=== PATIENT | male | born 1945 | race Caucasian/White ===

== ENCOUNTER 2016-10-08 15:48 | Inpatient (IN) | payer MEDICARE, OTHER ==
[~2016-10-08] VITALS: Ht 165.1 cm; Wt 114.4 kg
--- NOTE | 2016-10-08 16:17 | EKG ---
[address] [address] Test Date: 2016-10-08 Test Time: 16:14:52 Pat Name: NAYELI PERAZA Department: Room: Gender: M Director Engineering: : 1945 Requested By: CHAMP MOSQUEDA Order Number: [id number] Reading MD: Richardson Dasilva Measurements Intervals [place] Rate: 72 P: -38 PA: 196 QRS: -37 QRSD: 114 T: 65 QT: 414 QTc: 455 Interpretive Statements SINUS RHYTHM LAFB Electronically Signed On 10-12-2016 14:17:53 CDT by Richardson Dasilva
--- NOTE | 2016-10-08 16:48 | ED.ADGEN ---
Adult General Chief Complaint Chief Complaint Encounter for medical clearance for psychiatric admission HPI HPI Patient is a 70-year-old [facility] patient who presents with verbally aggressive behavior towards staff members and fellow residents. Patient said to the ED for medical clearance for psychiatric admission. Patient denies any acute medical complaints at this time and is generally calm and cooperative with ED staff. Review of Systems Review of Systems Constitutional: Denies fever or chills [] Eyes: Denies change in visual acuity, redness, or eye pain [] HENT: Denies nasal congestion or sore throat [] Respiratory: Denies cough or shortness of breath [] Cardiovascular: No additional information not addressed in HPI [] GI: Denies abdominal pain, nausea, vomiting, bloody stools or diarrhea [] : Denies dysuria or hematuria [] Musculoskeletal: Denies back pain or joint pain [] Integument: Denies rash or skin lesions [] Neurologic: Denies headache, focal weakness or sensory changes [] Endocrine: Denies polyuria or polydipsia [] Physical Exam Physical Exam Constitutional: Well developed, well nourished, no acute distress, non-toxic appearance. HENT: Normocephalic, atraumatic, bilateral external ears normal, oropharynx moist, no oral exudates, nose normal. Eyes: PERRLA, EOMI, conjunctiva normal. Neck: Normal range of motion, no tenderness. Cardiovascular:Heart rate regular rhythm. 2+ bipedal edema. Lungs & Thorax: Bilateral breath sounds clear to auscultation. Abdomen: Bowel sounds normal, soft, no tenderness, no masses, no pulsatile masses. Skin: Warm, dry. Back: No tenderness. Extremities: No tenderness. Neurologic: Alert and oriented, normal motor function, normal sensory function, no focal deficits noted. Psychologic: Affect normal,suspicious behavior. EKG EKG [EKG: Normal sinus rhythm, rate 72, no acute ST-T wave changes, QTC 455.] Radiology/Procedures Radiology/Procedures [] Course & Med Decision Making Course & Med Decision Making Pertinent Labs and Imaging studies reviewed. (See chart for details) [Encounter for medical clearance for psychiatric admission] Final Impression Final Impression [1. encounter for medical clearance for psychiatric admission] Problems: Dragon Disclaimer Dragon Disclaimer This electronic medical record was generated, in whole or in part, using a voice recognition dictation system. CHAMP MOSQUEDA DO October 08, 2016 16:48
[2016-10-08 17:11] LABS: BASO # 0.1 x10^3/uL (0.0-0.2); BASO % 1 % (0-3); EOS # 0.2 x10^3/uL (0.0-0.7); EOS % 4 % (0-3); HEMATOCRIT 40.8 % (39.0-53.0); HEMOGLOBIN 13.7 g/dL (13.0-17.5); LYMPH # 1.6 x10^3/uL (1.0-4.8); LYMPH % 28 % (24-48); MEAN CORPUSCULAR HEMOGLOBIN 30 pg (25-35); MEAN CORPUSCULAR HGB CONC 33 g/dL (31-37); MEAN CORPUSCULAR VOLUME 88 fL (79-100); MONO # 0.6 x10^3/uL (0.0-1.1); MONO % 11 % (0-9); NEUT # 3.2 x10^3uL (1.8-7.7); NEUT % 55 % (31-73); PLATELET COUNT 251 x10^3/uL (140-400); RED BLOOD COUNT 4.62 x10^6/uL (4.30-5.70); RED CELL DISTRIBUTION WIDTH 14.8 % (11.5-14.5); WHITE BLOOD COUNT 5.8 x10^3/uL (4.0-11.0)
[2016-10-08 17:22] LABS: ALBUMIN 3.4 g/dL (3.4-5.0); ALBUMIN/GLOBULIN RATIO 0.9 (1.0-1.7); CALCIUM 8.7 mg/dL (8.5-10.1); CREATININE 1.4 mg/dL (0.7-1.3); GFR 50.2; POTASSIUM 3.7 mmol/L (3.5-5.1); TOTAL BILIRUBIN 0.3 mg/dL (0.2-1.0); TOTAL PROTEIN 7.3 g/dL (6.4-8.2); VAL ACID 59 mcg/mL (50-100)
[2016-10-08 17:45] LABS: BILIRUBIN,URINE NEG (NEG); CLARITY,URINE CLEAR; COLOR,URINE YELLOW; GLUCOSE,URINE NEG (NEG); NITRITE,URINE NEG (NEG); UROBILINOGEN,URINE 0.2 mg/dL (0.2 mg/dL)
[2016-10-08 17:46] LABS: BACTERIA,URINE 0 /HPF (0-FEW); SQUAMOUS EPITHELIAL CELL,UR OCC /LPF
--- NOTE | 2016-10-08 18:50 | NUR ---
Patient arrived to unit accompanied by EMS, nurse from ER. He was transferred to bed in room 104 without complications. Patient verbal, cooperative with staff and pleasant while speaking with nurse. VS: 120/[id number]% RA-98.2, c/o left knee pain about 2/10. Patient states he had a cholecystectomy august 2016, CABG with valve replacement a few years back, and orthoscopic surgery on bilat knees. He ambulates with walker, regular diet, A&O X3- does not know why he is here. Patient oriented to unit and is currently in day room eating dinner, no signs of distress at this time.
[2016-10-08 19:21] VITALS: BP 120/60
[2016-10-08] MEDS ORDERED: SODI30SP NS (19:36)
[2016-10-08] MEDS ORDERED: LORA0.5T PO (19:36)
[2016-10-08] MEDS ORDERED: FINA5TAB4 PO (19:36)
[2016-10-08] MEDS ORDERED: DICL100G18 TP (19:36)
[2016-10-08] MEDS ORDERED: DONE5TAB56 PO (19:36)
[2016-10-08] MEDS ORDERED: FENO160T PO (19:36)
[2016-10-08] MEDS ORDERED: FLUT16SP21 NS (19:36)
[2016-10-08] MEDS ORDERED: TAMS0.4C2 PO (19:36)
[2016-10-08] MEDS ORDERED: CITA40TA12 PO (19:36)
[2016-10-08] MEDS ORDERED: FURO-69 PO (19:36)
[2016-10-08] MEDS ORDERED: CARV12.52 PO (19:36)
[2016-10-08] MEDS ORDERED: MELA3TAB2 PO (19:36)
[2016-10-08] MEDS ORDERED: DOCU-109 PO (19:36)
[2016-10-08] MEDS ORDERED: ASPI325T8 PO (19:36)
[2016-10-08] MEDS ORDERED: ATOR10TA60 PO (19:36)
[2016-10-08] MEDS ORDERED: ALLO100T PO (19:36)
[2016-10-08] MEDS ORDERED: DIVA500T2 PO (19:36)
[2016-10-08] MEDS ORDERED: MENT1LOZ3 MM (19:36)
[2016-10-08] MEDS ORDERED: ACET325T9 PO (19:36)
[2016-10-08] MEDS ORDERED: FAMO20TA5 PO (19:36)
[2016-10-08] MEDS ORDERED: GUAI-171 PO (19:36)
[2016-10-08] MEDS ORDERED: LISI40TA PO (19:36)
[2016-10-08] MEDS ORDERED: CLON1TAB3 PO (19:36)
[2016-10-08] MEDS ORDERED: POLY119P4 PO (19:36)
[2016-10-08] MEDS ORDERED: HYDR30CR61 RC (19:36)
[2016-10-08] MEDS ORDERED: LORazepam 0.5 MG TABLET PO PRN (19:45)
[2016-10-08] MEDS ORDERED: SODIUM CHLORIDE 0.65% NASAL SPRAY 45ML BOTTLE. NS PRN (20:00)
[2016-10-08] MEDS ORDERED: HYDROCORTISONE 2.5% RECTAL CREAM 30GM TUBE. RC PRN (20:00)
[2016-10-08] MEDS ORDERED: DICLOFENAC SODIUM 1% TOPICAL GEL 100GM TUBE. TP PRN (20:00)
[2016-10-08] MEDS: MELATONIN 3 MG TABLET PO SCH (20:34)
[2016-10-08] MEDS: ALLOPURINOL 100 MG TABLET. PO SCH (20:34)
[2016-10-08] MEDS: clonazePAM 1 MG TABLET PO SCH (20:34)
[2016-10-08] MEDS: DOCUSATE SODIUM 100 MG CAPSULE PO SCH (20:34)
[2016-10-08] MEDS: DONEPEZIL HCL 5 MG TABLET. PO SCH (20:34)
[2016-10-08] MEDS: DIVALPROEX SODIUM 250 MG TABLET.DR. PO SCH (20:34)
[2016-10-08] MEDS: ATORVASTATIN CALCIUM 10 MG TABLET. PO SCH (20:34)
[2016-10-08] MEDS ORDERED: BENZOCAINE/MENTHOL LOZENGE 16'S BOX. PO PRN (20:45)
--- NOTE | 2016-10-08 20:57 | PDOC ---
Exam Stanford Demential Exam: Stanford Note: Please also refer to the separate dictated note~for this date of service dictated separately.~Patient seen individually. Discussed the patient with Nursing staff reviewed the chart.~Reviewed interim history and current functioning. Reviewed vital signs,~Labs/ Radiology~and current medications noted below. Continue current treatment with the changes noted in the dictated addendum note Assessment: Vital Signs: Vital Signs Date Time Temp Pulse Resp B/P (MAP) Pulse Ox O2 Delivery O2 Flow Rate FiO2 10/08/16 19:21 98.2 60 20 120/60 (80) 92 Room Air Labs: Laboratory Tests Test 10/08/16 16:20 10/08/16 16:50 Urine Collection Type Unknown Urine Color Yellow Urine Clarity Clear Urine pH 6.0 Urine Specific [place] 1.015 Urine Protein Neg (NEG-TRACE) Urine Glucose (UA) Neg mg/dL (NEG) Urine Ketones (Stick) Neg mg/dL (NEG) Urine Blood Neg (NEG) Urine Nitrite Neg (NEG) Urine Bilirubin Neg (NEG) Urine Urobilinogen Dipstick 0.2 mg/dL (0.2 mg/dL) Urine Leukocyte Esterase Neg (NEG) Urine RBC 1-2 /HPF (0-2) Urine WBC 1-4 /HPF (0-4) Urine Squamous Epithelial Cells Occ /LPF Urine Bacteria 0 /HPF (0-FEW) White Blood Count 5.8 x10^3/uL (4.0-11.0) Red Blood Count 4.62 x10^6/uL (4.30-5.70) Hemoglobin 13.7 g/dL (13.0-17.5) Hematocrit 40.8 % (39.0-53.0) Mean Corpuscular Volume 88 fL (79-100) Mean Corpuscular Hemoglobin 30 pg (25-35) Mean Corpuscular Hemoglobin Concent 33 g/dL (31-37) Red Cell Distribution Width 14.8 % (11.5-14.5) H Platelet Count 251 x10^3/uL (140-400) Neutrophils (%) (Auto) 55 % (31-73) Lymphocytes (%) (Auto) 28 % (24-48) Monocytes (%) (Auto) 11 % (0-9) H Eosinophils (%) (Auto) 4 % (0-3) H Basophils (%) (Auto) 1 % (0-3) Neutrophils # (Auto) 3.2 x10^3uL (1.8-7.7) Lymphocytes # (Auto) 1.6 x10^3/uL (1.0-4.8) Monocytes # (Auto) 0.6 x10^3/uL (0.0-1.1) Eosinophils # (Auto) 0.2 x10^3/uL (0.0-0.7) Basophils # (Auto) 0.1 x10^3/uL (0.0-0.2) Sodium Level 142 mmol/L (136-145) Potassium Level 3.7 mmol/L (3.5-5.1) Chloride Level 105 mmol/L (98-107) Carbon Dioxide Level 31 mmol/L (21-32) Anion Gap 6 (6-14) Blood Urea Nitrogen 24 mg/dL (8-26) Creatinine 1.4 mg/dL (0.7-1.3) H Estimated GFR (Cockcroft-Gault) 50.2 BUN/Creatinine Ratio 17 (6-20) Glucose Level 145 mg/dL (70-99) H Calcium Level 8.7 mg/dL (8.5-10.1) Magnesium Level 2.1 mg/dL (1.8-2.4) Total Bilirubin 0.3 mg/dL (0.2-1.0) Aspartate Amino Transferase (AST) 22 U/L (15-37) Alanine Aminotransferase (ALT) 18 U/L (16-63) Alkaline Phosphatase 70 U/L (46-116) Total Protein 7.3 g/dL (6.4-8.2) Albumin 3.4 g/dL (3.4-5.0) Albumin/Globulin Ratio 0.9 (1.0-1.7) L Valproic Acid Level 59 mcg/mL (50-100) Valproic Acid Last Dose Date 10/08/16 Valproic Acid Last Dose Time Unknown Current Medications: Meds: Current Medications Clonazepam (KlonoPIN) 1 mg BID PO Last administered on 10/08/16 20:34; Start 10/08/16 at 21:00 Donepezil HCl (Aricept) 5 mg QHS PO Last administered on 10/08/16 20:34; Start 10/08/16 at 21:00 Lorazepam (Ativan) 0.5 mg PRN Q6HRS PRN PO ANXIETY / AGITATION; Start 10/08/16 at 19:45 Citalopram Hydrobromide (CeleXA) 40 mg DAILY PO ; Start 10/09/16 at 09:00 Divalproex Sodium (Depakote) 500 mg BID PO Last administered on 10/08/16 20:34 ; Start 10/08/16 at 21:00 Melatonin 3 mg QHS PO Last administered on 10/08/16 20:34; Start 10/08/16 at 21:00 Acetaminophen (Tylenol) 650 mg PRN Q6HRS PRN PO PAIN / TEMP; Start 10/08/16 at 20:00 Allopurinol (Zyloprim) 100 mg BID PO Last administered on 10/08/16 20:34; Start 10/08/16 at 21:00 Aspirin (Roberta Aspirin) 325 mg DAILY PO ; Start 10/09/16 at 09:00 Atorvastatin Calcium (Lipitor) 10 mg QHS PO Last administered on 10/08/16 20: 34; Start 10/08/16 at 21:00 Carvedilol (Coreg) 12.5 mg BIDWMEALS PO ; Start 10/09/16 at 08:00 Diclofenac Sodium (Voltaren) 1 diana PRN Q8HRS PRN TP PAIN; Start 10/08/16 at 20: 00 Docusate Sodium (Colace) 100 mg BID PO Last administered on 10/08/16 20:34; Start 10/08/16 at 21:00 Famotidine (Pepcid) 20 mg BIDBFRMEAL PO ; Start 10/09/16 at 07:30 Finasteride (Proscar) 5 mg DAILY PO ; Start 10/09/16 at 09:00 Fluticasone Propionate (Flonase) 2 spray DAILY NS ; Start 10/09/16 at 09:00 Furosemide (Lasix) 30 mg DAILY PO ; Start 10/09/16 at 09:00 Hydrocortisone (Proctosol-Hc) 1 diana PRN BID PRN RC Hemorrhoids; Start 10/08/16 at 20:00 Polyethylene Glycol (miraLAX) 17 gm PRN DAILY PRN PO CONSTIPATION; Start at 09:00 Sodium Chloride (Saline Mist Nasal) 2 diana PRN BID PRN NS NASAL CONGESTION; Start 10/08/16 at 20:00 Tamsulosin HCl (Flomax) 0.4 mg DAILY PO ; Start 10/09/16 at 09:00 Fenofibrate (Tricor) 145 mg DAILY PO ; Start 10/09/16 at 09:00 Guaifenesin (MUCINEX ER with DM) 1 tab PRN Q4HRS PRN PO COUGH; Start 10/08/16 at 21:00 Lisinopril (Prinivil) 40 mg DAILY PO ; Start 10/09/16 at 09:00 Throat Lozenges (Cepacol Sore Throat Lozenge) 1 christianne PRN Q2HR PRN PO COUGH; Start 10/08/16 at 20:45 Active Scripts Active Reported Voltaren (Diclofenac Sodium) 100 Gm Gel..gram. 1 Diana TP PRN Q8HRS PRN Tylenol (Acetaminophen) 325 Mg Tablet 650 Mg PO PRN Q6HRS PRN Tamsulosin Hcl 0.4 Mg Cap.er.24h 0.4 Mg PO DAILY Saline Nasal [place] (Sodium Chloride) 30 Ml [place] 2 Sprays NS PRN BID PRN Miralax (Polyethylene Glycol 3350) 119 Gm Powder 17 Gm PO PRN DAILY PRN Melatonin 3 Mg Tablet 3 Mg PO QHS Lorazepam 0.5 Mg Tablet 0.5 Mg PO PRN Q6HRS PRN Lisinopril 40 Mg Tablet 40 Mg PO DAILY Lasix (Furosemide) 20 Mg Tablet 30 Mg PO DAILY Guaifenesin Dm 400-20 Mg Tab (Guaifenesin/Dextromethorphan) 1 Each Tablet 1 Tab PO PRN Q4HRS PRN Fluticasone Propionate Nasal [place] (Fluticasone Propionate) 16 Gm [place].susp 2 [place] NS DAILY Finasteride 5 Mg Tablet 5 Mg PO DAILY Fenofibrate 160 Mg Tablet 160 Mg PO DAILY Famotidine 20 Mg Tablet 20 Mg PO BIDBFRMEAL Depakote (Divalproex Sodium) 500 Mg Tablet.dr 500 Mg PO BID Cough Drops (Menthol/Herbal Drugs) 1 Each Lozenge 1 Christianne MM PRN Q2HR PRN Colace (Docusate Sodium) 100 Mg Capsule 100 Mg PO BID Clonazepam 1 Mg Tablet 1 Mg PO BID Celexa (Citalopram Hydrobromide) 40 Mg Tablet 40 Mg PO DAILY Carvedilol 12.5 Mg Tablet 12.5 Mg PO BIDWMEALS Atorvastatin Calcium 10 Mg Tablet 10 Mg PO QHS Aspirin 325 Mg Tablet 325 Mg PO DAILY Aricept (Donepezil Hcl) 5 Mg Tablet 5 Mg PO QHS Anusol-Hc (Hydrocortisone) 30 Gm Cream..g. 1 Diana RC PRN BID PRN Allopurinol 100 Mg Tablet 100 Mg PO BID ELKIN MALDONADO MD October 08, 2016 20:57
[2016-10-08] MEDS ORDERED: guaiFENesin DM 600/30MG 1 TAB TAB.ER.12H PO PRN (21:00)
--- NOTE | 2016-10-09 03:28 | NUR ---
Behavior Intervention Response and Plan: BIRP Note: Behavior: Assumed Care of patient, patient located in Day Room at shift change. Patient exhibited the following behavior Calm, Compliant, Cooperative. Brief assessment on rounds of vital signs, medication needs, lab studies, and pain. Treatment plan problems Alteration in Thought Process and Fall Risk. Intervention: Patient assessed and the following interventions initiated safety checks 15 Minute Checks Cognitive Assessment , Head to toe Assessment , Medications. Response: After interactions and interventions patient responded in the following manner, Calm , Compliant ,Cooperative. Continue to assess behaviors and condition will continue to monitor throughout the shift as needed. 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 Continue to assess patient for changes in above assessment. Monitor for medication needs, pain, and safety concerns. Hourly rounding performed to ensure safe environment.
[2016-10-09 05:35] VITALS: BP 156/78
[2016-10-09] MEDS: DIVALPROEX SODIUM 250 MG TABLET.DR. PO SCH ×2 (07:55→20:39)
[2016-10-09] MEDS: DOCUSATE SODIUM 100 MG CAPSULE PO SCH ×2 (07:55→20:39)
[2016-10-09] MEDS: ALLOPURINOL 100 MG TABLET. PO SCH ×2 (07:55→20:39)
[2016-10-09] MEDS: FLUTICASONE 50MCG/NASAL SPRAY 16GM BOTTLE. NS SCH (08:01)
[2016-10-09] MEDS: ASPIRIN 325 MG TABLET PO SCH (08:05)
[2016-10-09] MEDS: LISINOPRIL 20 MG TABLET PO SCH (08:05)
[2016-10-09] MEDS: FENOFIBRATE NANOCRYSTALLIZED 145 MG TABLET PO SCH (08:05)
[2016-10-09] MEDS: TAMSULOSIN 0.4 MG CAP.ER.24H. PO SCH (08:05)
[2016-10-09] MEDS: FINASTERIDE 5 MG TABLET PO SCH (08:05)
[2016-10-09] MEDS: CARVEDILOL 12.5 MG TABLET PO SCH ×2 (08:06→18:04)
[2016-10-09] MEDS: FUROSEMIDE 20 MG TABLET PO SCH (08:07)
[2016-10-09] MEDS: clonazePAM 1 MG TABLET PO SCH ×2 (08:07→20:39)
[2016-10-09] MEDS: FAMOTIDINE 20 MG TABLET PO SCH ×2 (08:08→18:04)
[2016-10-09] MEDS ORDERED: POLYETHYLENE GLYCOL 3350 17 GM PACKET. PO PRN (09:00)
[2016-10-09] MEDS ORDERED: CITALOPRAM 20 MG TABLET. PO SCH (09:00)
--- NOTE | 2016-10-09 09:09 | NUR ---
SW left a message for Pt's dtr/DPRENNY Landin to collect PSA and answer any questions.
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
--- NOTE | 2016-10-09 10:06 | NUR ---
Behavior Intervention Response and Plan: BIRP Note: Behavior: Assumed Care of patient, patient located in Dining Room at shift change. Patient exhibited the following behavior Compliant, Social, hyperverbal. Brief assessment on rounds of vital signs, medication needs, lab studies, and pain. Treatment plan problems . Intervention: Patient assessed and the following interventions initiated safety checks 15 Minute Checks Cognitive Assessment , Head to toe Assessment , Medications. Response: After interactions and interventions patient responded in the following manner, Compliant , Attention Seeking. Continue to assess behaviors and condition will continue to monitor throughout the shift as needed. 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 Continue to assess patient for changes in above assessment. Monitor for medication needs, pain, and safety concerns. Hourly rounding performed to ensure safe environment.
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
--- NOTE | 2016-10-09 14:15 | NUR ---
THERAPEUTIC RECREATION GROUP NOTE TITLE :Leisure Awareness: Flower Field of Fun ACTIVITY : Leisure Awareness GOAL : Increase knowledge of leisure activities DURATION : 45 Minutes RESPONSE : Full participation. Pt. waited his turn appropriately, he gave numerous examples of leisure activities and was able to quickly solve clues. He had a smile on his face most of the time.
--- NOTE | 2016-10-09 14:25 | NUR ---
Group Note [facility] Group Type Flower of gratefulness Start Time: 13:00 End Time: 14:10 Problem: Anxiety Purpose: Elevate Mood, Increase stimulation, stimulate thought process, promote socialization Level of Participation: High Behaviors or Symptoms Observed: Participates sat within a group setting and wrote on each petal of the flower something they were grateful for. Group discussed each persons flower petals as group. Then each person decorated their fowler. Interventions: Directed Focus Plan: group. Additional Comments: Pt stated he enjoyed the activity and enjoys engaging in groups. Pt put a lot of thought into the different colors he made the petals making the colors represents the words he put into the petals.
[2016-10-09 16:15] VITALS: BP 128/72
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
[2016-10-09 18:08] LABS: T3 TOTAL 103 ng/dL (71-180)
--- NOTE | 2016-10-09 18:24 | NUR ---
pt up with walker to meals and groups. in pleasant spirits. hyperverbal. states staff doesn't listen to him when he is sick. new orders noted.
[2016-10-09 19:13] LABS: THYROXINE 5.5 ug/dL (4.5-12.0)
[2016-10-09] MEDS: ATORVASTATIN CALCIUM 10 MG TABLET. PO SCH (20:39)
[2016-10-09] MEDS: DONEPEZIL HCL 5 MG TABLET. PO SCH (20:39)
[2016-10-09] MEDS: MELATONIN 3 MG TABLET PO SCH (20:39)
--- NOTE | 2016-10-09 21:01 | PDOC ---
Exam [facility] Demential Exam: [facility] Note: Please also refer to the separate dictated note~for this date of service dictated separately.~Patient seen individually. Discussed the patient with Nursing staff reviewed the chart.~Reviewed interim history and current functioning. Reviewed vital signs,~Labs/ Radiology~and current medications noted below. Continue current treatment with the changes noted in the dictated addendum note Assessment: Vital Signs: Vital Signs Date Time Temp Pulse Resp B/P (MAP) Pulse Ox O2 Delivery O2 Flow Rate FiO2 10/09/16 18:04 60 128/72 10/09/16 16:15 97.4 20 95 10/09/16 05:35 Room Air I&O Intake and Output 10/09/16 07:00 Intake Total 240 ml Balance 240 ml Intake Oral 240 ml Current Medications: Meds: Current Medications Clonazepam (KlonoPIN) 1 mg BID PO Last administered on 10/09/16 20:39; Start 10/08/16 at 21:00 Donepezil HCl (Aricept) 5 mg QHS PO Last administered on 10/09/16 20:39; Start 10/08/16 at 21:00 Lorazepam (Ativan) 0.5 mg PRN Q6HRS PRN PO ANXIETY / AGITATION; Start 10/08/16 at 19:45 Citalopram Hydrobromide (CeleXA) 40 mg DAILY PO Last administered on 10/09/16 08:05; Start 10/09/16 at 09:00; Stop 10/09/16 at 18:44; Status DC Divalproex Sodium (Depakote) 500 mg BID PO Last administered on 10/09/16 20:39 ; Start 10/08/16 at 21:00 Melatonin 3 mg QHS PO Last administered on 10/09/16 20:39; Start 10/08/16 at 21:00 Acetaminophen (Tylenol) 650 mg PRN Q6HRS PRN PO PAIN / TEMP; Start 10/08/16 at 20:00 Allopurinol (Zyloprim) 100 mg BID PO Last administered on 10/09/16 20:39; Start 10/08/16 at 21:00 Aspirin (Roberta Aspirin) 325 mg DAILY PO Last administered on 10/09/16 08:05; Start 10/09/16 at 09:00 Atorvastatin Calcium (Lipitor) 10 mg QHS PO Last administered on 10/09/16 20: 39; Start 10/08/16 at 21:00 Carvedilol (Coreg) 12.5 mg BIDWMEALS PO Last administered on 10/09/16 18:04; Start 10/09/16 at 08:00 Diclofenac Sodium (Voltaren) 1 diana PRN Q8HRS PRN TP PAIN; Start 10/08/16 at 20: 00 Docusate Sodium (Colace) 100 mg BID PO Last administered on 10/09/16 20:39; Start 10/08/16 at 21:00 Famotidine (Pepcid) 20 mg BIDBFRMEAL PO Last administered on 10/09/16 18:04; Start 10/09/16 at 07:30 Finasteride (Proscar) 5 mg DAILY PO Last administered on 10/09/16 08:05; Start 10/09/16 at 09:00 Fluticasone Propionate (Flonase) 2 spray DAILY NS Last administered on 08:01; Start 10/09/16 at 09:00 Furosemide (Lasix) 30 mg DAILY PO Last administered on 10/09/16 08:07; Start 10/09/16 at 09:00 Hydrocortisone (Proctosol-Hc) 1 diana PRN BID PRN RC Hemorrhoids; Start 10/08/16 at 20:00 Polyethylene Glycol (miraLAX) 17 gm PRN DAILY PRN PO CONSTIPATION; Start at 09:00 Sodium Chloride (Saline Mist Nasal) 2 diana PRN BID PRN NS NASAL CONGESTION; Start 10/08/16 at 20:00 Tamsulosin HCl (Flomax) 0.4 mg DAILY PO Last administered on 10/09/16 08:05; Start 10/09/16 at 09:00 Fenofibrate (Tricor) 145 mg DAILY PO Last administered on 10/09/16 08:05; Start 10/09/16 at 09:00 Guaifenesin (MUCINEX ER with DM) 1 tab PRN Q4HRS PRN PO COUGH; Start 10/08/16 at 21:00 Lisinopril (Prinivil) 40 mg DAILY PO Last administered on 10/09/16 08:05; Start 10/09/16 at 09:00 Throat Lozenges (Cepacol Sore Throat Lozenge) 1 christianne PRN Q2HR PRN PO COUGH; Start 10/08/16 at 20:45 Escitalopram Oxalate (Lexapro) 10 mg DAILY PO ; Start 10/10/16 at 09:00 Quetiapine Fumarate (SEROquel) 12.5 mg BID92 PO ; Start 10/10/16 at 09:00 Active Scripts Active Reported Voltaren (Diclofenac Sodium) 100 Gm Gel..gram. 1 Diana TP PRN Q8HRS PRN Tylenol (Acetaminophen) 325 Mg Tablet 650 Mg PO PRN Q6HRS PRN Tamsulosin Hcl 0.4 Mg Cap.er.24h 0.4 Mg PO DAILY Saline Nasal [place] (Sodium Chloride) 30 Ml [place] 2 Sprays NS PRN BID PRN Miralax (Polyethylene Glycol 3350) 119 Gm Powder 17 Gm PO PRN DAILY PRN Melatonin 3 Mg Tablet 3 Mg PO QHS Lorazepam 0.5 Mg Tablet 0.5 Mg PO PRN Q6HRS PRN Lisinopril 40 Mg Tablet 40 Mg PO DAILY Lasix (Furosemide) 20 Mg Tablet 30 Mg PO DAILY Guaifenesin Dm 400-20 Mg Tab (Guaifenesin/Dextromethorphan) 1 Each Tablet 1 Tab PO PRN Q4HRS PRN Fluticasone Propionate Nasal [place] (Fluticasone Propionate) 16 Gm [place].susp 2 [place] NS DAILY Finasteride 5 Mg Tablet 5 Mg PO DAILY Fenofibrate 160 Mg Tablet 160 Mg PO DAILY Famotidine 20 Mg Tablet 20 Mg PO BIDBFRMEAL Depakote (Divalproex Sodium) 500 Mg Tablet.dr 500 Mg PO BID Cough Drops (Menthol/Herbal Drugs) 1 Each Lozenge 1 Christianne MM PRN Q2HR PRN Colace (Docusate Sodium) 100 Mg Capsule 100 Mg PO BID Clonazepam 1 Mg Tablet 1 Mg PO BID Celexa (Citalopram Hydrobromide) 40 Mg Tablet 40 Mg PO DAILY Carvedilol 12.5 Mg Tablet 12.5 Mg PO BIDWMEALS Atorvastatin Calcium 10 Mg Tablet 10 Mg PO QHS Aspirin 325 Mg Tablet 325 Mg PO DAILY Aricept (Donepezil Hcl) 5 Mg Tablet 5 Mg PO QHS Anusol-Hc (Hydrocortisone) 30 Gm Cream..g. 1 Diana RC PRN BID PRN Allopurinol 100 Mg Tablet 100 Mg PO BID ELKIN MALDONADO MD October 09, 2016 21:01
--- NOTE | 2016-10-09 23:11 | NUR ---
Behavior Intervention Response and Plan: BIRP Note: Behavior: Assumed Care of patient, patient located in Day Room at shift change. Patient exhibited the following behavior Calm, Compliant, Interactive. Brief assessment on rounds of vital signs, medication needs, lab studies, and pain. Treatment plan problems Alteration in Thought Process and Fall Risk. Intervention: Patient assessed and the following interventions initiated safety checks 15 Minute Checks Cognitive Assessment , Medications , Oral Hydration. Response: After interactions and interventions patient responded in the following manner, Calm , Compliant ,Social. Continue to assess behaviors and condition will continue to monitor throughout the shift as needed. Plan: Continue to monitor Master Treatment Plan for patient's progress toward short term goals of Decreased Agitation, Decreased Anxiety, chcf goals to return to previous living setting vs placement. Continue to assess patient for changes in above assessment. Monitor for medication needs, pain, and safety concerns. Hourly rounding performed to ensure safe environment.
[2016-10-10 02:08] LABS: HEMOGLOBIN A1C 5.2 % (4.8-5.6)
[2016-10-10 05:56] VITALS: BP 125/63
[2016-10-10] MEDS: TAMSULOSIN 0.4 MG CAP.ER.24H. PO SCH (07:52)
[2016-10-10] MEDS: FINASTERIDE 5 MG TABLET PO SCH (07:52)
[2016-10-10] MEDS: ALLOPURINOL 100 MG TABLET. PO SCH ×2 (07:53→20:34)
[2016-10-10] MEDS: FENOFIBRATE NANOCRYSTALLIZED 145 MG TABLET PO SCH (07:53)
[2016-10-10] MEDS: FUROSEMIDE 20 MG TABLET PO SCH (07:53)
[2016-10-10] MEDS: DIVALPROEX SODIUM 250 MG TABLET.DR. PO SCH ×2 (07:53→20:34)
[2016-10-10] MEDS: LISINOPRIL 20 MG TABLET PO SCH (07:53)
[2016-10-10] MEDS: FAMOTIDINE 20 MG TABLET PO SCH ×2 (07:54→17:19)
[2016-10-10] MEDS: CARVEDILOL 12.5 MG TABLET PO SCH ×2 (07:54→17:20)
[2016-10-10] MEDS: ASPIRIN 325 MG TABLET PO SCH (07:54)
[2016-10-10] MEDS: DOCUSATE SODIUM 100 MG CAPSULE PO SCH ×2 (07:54→20:33)
[2016-10-10] MEDS: clonazePAM 1 MG TABLET PO SCH ×2 (07:57→20:34)
[2016-10-10] MEDS: FLUTICASONE 50MCG/NASAL SPRAY 16GM BOTTLE. NS SCH (08:08)
[2016-10-10] MEDS: ESCITALOPRAM 10 MG TABLET. PO SCH (08:10)
[2016-10-10] MEDS: QUEtiapine 25 MG TABLET. PO SCH ×2 (08:10→13:07)
--- NOTE | 2016-10-10 09:59 | NUR ---
Behavior Intervention Response and Plan: BIRP Note: Behavior: Assumed Care of patient, patient located in Dining Room at shift change. Patient exhibited the following behavior Compliant, Social, hyperverbal. Brief assessment on rounds of vital signs, medication needs, lab studies, and pain. Treatment plan problems . Intervention: Patient assessed and the following interventions initiated safety checks 15 Minute Checks Cognitive Assessment , Head to toe Assessment , Medications. Response: After interactions and interventions patient responded in the following manner, Compliant , Attention Seeking. Continue to assess behaviors and condition will continue to monitor throughout the shift as needed. Plan: Continue to monitor Master Treatment Plan for patient's progress toward short term goals of Decreased Agitation, Decreased Anxiety, terminal gauger goals to return to previous living setting vs placement. Continue to assess patient for changes in above assessment. Monitor for medication needs, pain, and safety concerns. Hourly rounding performed to ensure safe environment.
[2016-10-10] MEDS ORDERED: CYANOCOBALAMIN (VITAMIN B-12) 1,000 MCG/ML VIAL IM SCH (11:30)
[2016-10-10] MEDS: OMEGA-3 FATTY ACIDS/FISH OIL 1,000 MG CAPSULE. PO SCH (13:07)
--- NOTE | 2016-10-10 16:01 | NUR ---
pt up adl to meals and day room. in pleasant spirits. compliant with meds and cares.
[2016-10-10 16:25] VITALS: BP 112/52
[2016-10-10] MEDS: MELATONIN 3 MG TABLET PO SCH (20:33)
[2016-10-10] MEDS: DONEPEZIL HCL 5 MG TABLET. PO SCH (20:33)
[2016-10-10] MEDS: ATORVASTATIN CALCIUM 10 MG TABLET. PO SCH (20:34)
--- NOTE | 2016-10-10 20:45 | PDOC ---
Exam [facility] Demential Exam: [facility] Note: Please also refer to the separate dictated note~for this date of service dictated separately.~Patient seen individually. Discussed the patient with Nursing staff reviewed the chart.~Reviewed interim history and current functioning. Reviewed vital signs,~Labs/ Radiology~and current medications noted below. Continue current treatment with the changes noted in the dictated addendum note Assessment: Vital Signs: Vital Signs Date Time Temp Pulse Resp B/P (MAP) Pulse Ox O2 Delivery O2 Flow Rate FiO2 10/10/16 16:25 97.9 54 18 112/52 (72) 98 10/09/16 05:35 Room Air I&O Intake and Output 10/10/16 07:00 Intake Total 2040 ml Balance 2040 ml Intake Oral 2040 ml Current Medications: Meds: Current Medications Clonazepam (KlonoPIN) 1 mg BID PO Last administered on 10/10/16 07:57; Start 10/08/16 at 21:00 Donepezil HCl (Aricept) 5 mg QHS PO Last administered on 10/09/16 20:39; Start 10/08/16 at 21:00 Lorazepam (Ativan) 0.5 mg PRN Q6HRS PRN PO ANXIETY / AGITATION; Start 10/08/16 at 19:45 Citalopram Hydrobromide (CeleXA) 40 mg DAILY PO Last administered on 10/09/16 08:05; Start 10/09/16 at 09:00; Stop 10/09/16 at 18:44; Status DC Divalproex Sodium (Depakote) 500 mg BID PO Last administered on 10/10/16 07:53 ; Start 10/08/16 at 21:00 Melatonin 3 mg QHS PO Last administered on 10/09/16 20:39; Start 10/08/16 at 21:00 Acetaminophen (Tylenol) 650 mg PRN Q6HRS PRN PO PAIN / TEMP; Start 10/08/16 at 20:00 Allopurinol (Zyloprim) 100 mg BID PO Last administered on 10/10/16 07:53; Start 10/08/16 at 21:00 Aspirin (Roberta Aspirin) 325 mg DAILY PO Last administered on 10/10/16 07:54; Start 10/09/16 at 09:00 Atorvastatin Calcium (Lipitor) 10 mg QHS PO Last administered on 10/09/16 20: 39; Start 10/08/16 at 21:00 Carvedilol (Coreg) 12.5 mg BIDWMEALS PO Last administered on 10/10/16 07:54; Start 10/09/16 at 08:00 Diclofenac Sodium (Voltaren) 1 diana PRN Q8HRS PRN TP PAIN; Start 10/08/16 at 20: 00 Docusate Sodium (Colace) 100 mg BID PO Last administered on 10/10/16 07:54; Start 10/08/16 at 21:00 Famotidine (Pepcid) 20 mg BIDBFRMEAL PO Last administered on 10/10/16 07:54; Start 10/09/16 at 07:30 Finasteride (Proscar) 5 mg DAILY PO Last administered on 10/10/16 07:52; Start 10/09/16 at 09:00 Fluticasone Propionate (Flonase) 2 spray DAILY NS Last administered on 08:08; Start 10/09/16 at 09:00 Furosemide (Lasix) 30 mg DAILY PO Last administered on 10/10/16 07:53; Start 10/09/16 at 09:00 Hydrocortisone (Proctosol-Hc) 1 diana PRN BID PRN RC Hemorrhoids; Start 10/08/16 at 20:00 Polyethylene Glycol (miraLAX) 17 gm PRN DAILY PRN PO CONSTIPATION; Start at 09:00 Sodium Chloride (Saline Mist Nasal) 2 diana PRN BID PRN NS NASAL CONGESTION; Start 10/08/16 at 20:00 Tamsulosin HCl (Flomax) 0.4 mg DAILY PO Last administered on 10/10/16 07:52; Start 10/09/16 at 09:00 Fenofibrate (Tricor) 145 mg DAILY PO Last administered on 10/10/16 07:53; Start 10/09/16 at 09:00 Guaifenesin (MUCINEX ER with DM) 1 tab PRN Q4HRS PRN PO COUGH; Start 10/08/16 at 21:00 Lisinopril (Prinivil) 40 mg DAILY PO Last administered on 10/10/16 07:53; Start 10/09/16 at 09:00 Throat Lozenges (Cepacol Sore Throat Lozenge) 1 christianne PRN Q2HR PRN PO COUGH; Start 10/08/16 at 20:45 Escitalopram Oxalate (Lexapro) 10 mg DAILY PO Last administered on 10/10/16 08 :10; Start 10/10/16 at 09:00 Quetiapine Fumarate (SEROquel) 12.5 mg BID92 PO Last administered on 10/10/16 13:07; Start 10/10/16 at 09:00 Fish Oil (Fish Oil) 1,000 mg DAILYBFRLUN PO Last administered on 10/10/16 13: 07; Start 10/10/16 at 11:30 Vitamin D (Vitamin D3) 50,000 unit WEEKLY PO ; Start 10/17/16 at 09:00 Cyanocobalamin (Vitamin B-12) 1,000 mcg [id number] IM Last administered on 13:07; Start 10/10/16 at 11:30 Active Scripts Active Reported Voltaren (Diclofenac Sodium) 100 Gm Gel..gram. 1 Diana TP PRN Q8HRS PRN Tylenol (Acetaminophen) 325 Mg Tablet 650 Mg PO PRN Q6HRS PRN Tamsulosin Hcl 0.4 Mg Cap.er.24h 0.4 Mg PO DAILY Saline Nasal [place] (Sodium Chloride) 30 Ml [place] 2 Sprays NS PRN BID PRN Miralax (Polyethylene Glycol 3350) 119 Gm Powder 17 Gm PO PRN DAILY PRN Melatonin 3 Mg Tablet 3 Mg PO QHS Lorazepam 0.5 Mg Tablet 0.5 Mg PO PRN Q6HRS PRN Lisinopril 40 Mg Tablet 40 Mg PO DAILY Lasix (Furosemide) 20 Mg Tablet 30 Mg PO DAILY Guaifenesin Dm 400-20 Mg Tab (Guaifenesin/Dextromethorphan) 1 Each Tablet 1 Tab PO PRN Q4HRS PRN Fluticasone Propionate Nasal [place] (Fluticasone Propionate) 16 Gm [place].susp 2 [place] NS DAILY Finasteride 5 Mg Tablet 5 Mg PO DAILY Fenofibrate 160 Mg Tablet 160 Mg PO DAILY Famotidine 20 Mg Tablet 20 Mg PO BIDBFRMEAL Depakote (Divalproex Sodium) 500 Mg Tablet.dr 500 Mg PO BID Cough Drops (Menthol/Herbal Drugs) 1 Each Lozenge 1 Christianne MM PRN Q2HR PRN Colace (Docusate Sodium) 100 Mg Capsule 100 Mg PO BID Clonazepam 1 Mg Tablet 1 Mg PO BID Celexa (Citalopram Hydrobromide) 40 Mg Tablet 40 Mg PO DAILY Carvedilol 12.5 Mg Tablet 12.5 Mg PO BIDWMEALS Atorvastatin Calcium 10 Mg Tablet 10 Mg PO QHS Aspirin 325 Mg Tablet 325 Mg PO DAILY Aricept (Donepezil Hcl) 5 Mg Tablet 5 Mg PO QHS Anusol-Hc (Hydrocortisone) 30 Gm Cream..g. 1 Diana RC PRN BID PRN Allopurinol 100 Mg Tablet 100 Mg PO BID Diagnosis: Problems: (1) Dementia ELKIN MALDONADO MD October 10, 2016 20:45
--- NOTE | 2016-10-10 22:50 | NUR ---
Behavior Intervention Response and Plan: BIRP Note: Behavior: Assumed Care of patient, patient located in Day Room at shift change. Patient exhibited the following behavior Interactive, Calm, Compliant. Brief assessment on rounds of vital signs, medication needs, lab studies, and pain. Treatment plan problems:1-2 Intervention: Patient assessed and the following interventions initiated safety checks 15 Minute Checks Cognitive Assessment , Head to toe Assessment , Medications. Response: After interactions and interventions patient responded in the following manner, Calm , Cooperative ,Compliant. Continue to assess behaviors and condition will continue to monitor throughout the shift as needed. 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 Continue to assess patient for changes in above assessment. Monitor for medication needs, pain, and safety concerns. Hourly rounding performed to ensure safe environment.
[2016-10-11 06:29] VITALS: BP 156/90
[2016-10-11] MEDS: ASPIRIN 325 MG TABLET PO SCH (07:53)
[2016-10-11] MEDS: clonazePAM 1 MG TABLET PO SCH ×2 (07:53→18:17)
[2016-10-11] MEDS: FINASTERIDE 5 MG TABLET PO SCH (07:53)
[2016-10-11] MEDS: DOCUSATE SODIUM 100 MG CAPSULE PO SCH ×2 (07:53→18:17)
[2016-10-11] MEDS: QUEtiapine 25 MG TABLET. PO SCH ×2 (07:54→11:54)
[2016-10-11] MEDS: LISINOPRIL 20 MG TABLET PO SCH (07:54)
[2016-10-11] MEDS: FAMOTIDINE 20 MG TABLET PO SCH ×2 (07:55→15:27)
[2016-10-11] MEDS: ESCITALOPRAM 10 MG TABLET. PO SCH (07:55)
[2016-10-11] MEDS: TAMSULOSIN 0.4 MG CAP.ER.24H. PO SCH (07:55)
[2016-10-11] MEDS: FUROSEMIDE 20 MG TABLET PO SCH (07:56)
[2016-10-11] MEDS: ALLOPURINOL 100 MG TABLET. PO SCH ×2 (07:59→18:17)
[2016-10-11] MEDS: DIVALPROEX SODIUM 250 MG TABLET.DR. PO SCH ×2 (07:59→18:17)
[2016-10-11] MEDS: CARVEDILOL 12.5 MG TABLET PO SCH ×2 (07:59→15:28)
[2016-10-11] MEDS: FLUTICASONE 50MCG/NASAL SPRAY 16GM BOTTLE. NS SCH (07:59)
[2016-10-11] MEDS: FENOFIBRATE NANOCRYSTALLIZED 145 MG TABLET PO SCH (07:59)
[2016-10-11] MEDS ORDERED: CHOLECALCIFEROL (VITAMIN D3) 1,000 UNIT TABLET PO SCH (09:00)
--- NOTE | 2016-10-11 11:09 | NUR ---
Behavior Intervention Response and Plan: BIRP Note: Behavior: Assumed Care of patient, patient located in Dining Room at shift change. Patient exhibited the following behavior Compliant, Social, hyperverbal. Brief assessment on rounds of vital signs, medication needs, lab studies, and pain. Treatment plan problems . Intervention: Patient assessed and the following interventions initiated safety checks 15 Minute Checks Cognitive Assessment , Head to toe Assessment , Medications. Response: After interactions and interventions patient responded in the following manner, Compliant , Attention Seeking. Continue to assess behaviors and condition will continue to monitor throughout the shift as needed. Plan: Continue to monitor Master Treatment Plan for patient's progress toward short term goals of Decreased Agitation, Decreased Anxiety, rn long term care goals to return to previous living setting vs placement. Continue to assess patient for changes in above assessment. Monitor for medication needs, pain, and safety concerns. Hourly rounding performed to ensure safe environment.
[2016-10-11] MEDS: OMEGA-3 FATTY ACIDS/FISH OIL 1,000 MG CAPSULE. PO SCH (11:55)
[2016-10-11 16:02] VITALS: BP 134/84
--- NOTE | 2016-10-11 16:44 | NUR ---
pt up adl to meals and groups. in pleasant spirits. compliant with meds and cares.
[2016-10-11] MEDS: MELATONIN 3 MG TABLET PO SCH (18:17)
[2016-10-11] MEDS: DONEPEZIL HCL 5 MG TABLET. PO SCH (18:17)
[2016-10-11] MEDS: ATORVASTATIN CALCIUM 10 MG TABLET. PO SCH (18:17)
--- NOTE | 2016-10-11 19:38 | PDOC ---
Exam [facility] Demential Exam: [facility] Note: Please also refer to the separate dictated note~for this date of service dictated separately.~Patient seen individually. Discussed the patient with Nursing staff reviewed the chart.~Reviewed interim history and current functioning. Reviewed vital signs,~Labs/ Radiology~and current medications noted below. Continue current treatment with the changes noted in the dictated addendum note Assessment: Vital Signs: Vital Signs Date Time Temp Pulse Resp B/P (MAP) Pulse Ox O2 Delivery O2 Flow Rate FiO2 10/11/16 16:02 98.1 60 20 134/84 (101) 96 10/09/16 05:35 Room Air I&O Intake and Output 10/11/16 07:00 Intake Total 1020 ml Balance 1020 ml Intake Oral 1020 ml # Bowel Movements 2 Current Medications: Meds: Current Medications Clonazepam (KlonoPIN) 1 mg BID PO Last administered on 10/11/16 18:17; Start 10/08/16 at 21:00 Donepezil HCl (Aricept) 5 mg QHS PO Last administered on 10/11/16 18:17; Start 10/08/16 at 21:00 Lorazepam (Ativan) 0.5 mg PRN Q6HRS PRN PO ANXIETY / AGITATION; Start 10/08/16 at 19:45 Citalopram Hydrobromide (CeleXA) 40 mg DAILY PO Last administered on 10/09/16 08:05; Start 10/09/16 at 09:00; Stop 10/09/16 at 18:44; Status DC Divalproex Sodium (Depakote) 500 mg BID PO Last administered on 10/11/16 18:17 ; Start 10/08/16 at 21:00 Melatonin 3 mg QHS PO Last administered on 10/11/16 18:17; Start 10/08/16 at 21:00 Acetaminophen (Tylenol) 650 mg PRN Q6HRS PRN PO PAIN / TEMP; Start 10/08/16 at 20:00 Allopurinol (Zyloprim) 100 mg BID PO Last administered on 10/11/16 18:17; Start 10/08/16 at 21:00 Aspirin (Roberta Aspirin) 325 mg DAILY PO Last administered on 10/11/16 07:53; Start 10/09/16 at 09:00 Atorvastatin Calcium (Lipitor) 10 mg QHS PO Last administered on 10/11/16 18: 17; Start 10/08/16 at 21:00 Carvedilol (Coreg) 12.5 mg BIDWMEALS PO Last administered on 10/11/16 15:28; Start 10/09/16 at 08:00 Diclofenac Sodium (Voltaren) 1 diana PRN Q8HRS PRN TP PAIN; Start 10/08/16 at 20: 00 Docusate Sodium (Colace) 100 mg BID PO Last administered on 10/11/16 18:17; Start 10/08/16 at 21:00 Famotidine (Pepcid) 20 mg BIDBFRMEAL PO Last administered on 10/11/16 15:27; Start 10/09/16 at 07:30 Finasteride (Proscar) 5 mg DAILY PO Last administered on 10/11/16 07:53; Start 10/09/16 at 09:00 Fluticasone Propionate (Flonase) 2 spray DAILY NS Last administered on 07:59; Start 10/09/16 at 09:00 Furosemide (Lasix) 30 mg DAILY PO Last administered on 10/11/16 07:56; Start 10/09/16 at 09:00 Hydrocortisone (Proctosol-Hc) 1 diana PRN BID PRN RC Hemorrhoids; Start 10/08/16 at 20:00 Polyethylene Glycol (miraLAX) 17 gm PRN DAILY PRN PO CONSTIPATION; Start at 09:00 Sodium Chloride (Saline Mist Nasal) 2 diana PRN BID PRN NS NASAL CONGESTION; Start 10/08/16 at 20:00 Tamsulosin HCl (Flomax) 0.4 mg DAILY PO Last administered on 10/11/16 07:55; Start 10/09/16 at 09:00 Fenofibrate (Tricor) 145 mg DAILY PO Last administered on 10/11/16 07:59; Start 10/09/16 at 09:00 Guaifenesin (MUCINEX ER with DM) 1 tab PRN Q4HRS PRN PO COUGH; Start 10/08/16 at 21:00 Lisinopril (Prinivil) 40 mg DAILY PO Last administered on 10/11/16 07:54; Start 10/09/16 at 09:00 Throat Lozenges (Cepacol Sore Throat Lozenge) 1 christianne PRN Q2HR PRN PO COUGH; Start 10/08/16 at 20:45 Escitalopram Oxalate (Lexapro) 10 mg DAILY PO Last administered on 10/11/16 07 :55; Start 10/10/16 at 09:00 Quetiapine Fumarate (SEROquel) 12.5 mg BID92 PO Last administered on 10/11/16 11:54; Start 10/10/16 at 09:00 Fish Oil (Fish Oil) 1,000 mg DAILYBFRLUN PO Last administered on 10/11/16 11: 55; Start 10/10/16 at 11:30 Vitamin D (Vitamin D3) 50,000 unit WEEKLY PO ; Start 10/17/16 at 09:00 Cyanocobalamin (Vitamin B-12) 1,000 mcg [id number] IM Last administered on 13:07; Start 10/10/16 at 11:30 Vitamin D (Vitamin D3) 2,000 unit DAILY PO Last administered on 10/11/16 08:00 ; Start 10/11/16 at 09:00; Stop 10/11/16 at 11:35; Status DC Active Scripts Active Reported Voltaren (Diclofenac Sodium) 100 Gm Gel..gram. 1 Diana TP PRN Q8HRS PRN Tylenol (Acetaminophen) 325 Mg Tablet 650 Mg PO PRN Q6HRS PRN Tamsulosin Hcl 0.4 Mg Cap.er.24h 0.4 Mg PO DAILY Saline Nasal [place] (Sodium Chloride) 30 Ml [place] 2 Sprays NS PRN BID PRN Miralax (Polyethylene Glycol 3350) 119 Gm Powder 17 Gm PO PRN DAILY PRN Melatonin 3 Mg Tablet 3 Mg PO QHS Lorazepam 0.5 Mg Tablet 0.5 Mg PO PRN Q6HRS PRN Lisinopril 40 Mg Tablet 40 Mg PO DAILY Lasix (Furosemide) 20 Mg Tablet 30 Mg PO DAILY Guaifenesin Dm 400-20 Mg Tab (Guaifenesin/Dextromethorphan) 1 Each Tablet 1 Tab PO PRN Q4HRS PRN Fluticasone Propionate Nasal [place] (Fluticasone Propionate) 16 Gm [place].susp 2 [place] NS DAILY Finasteride 5 Mg Tablet 5 Mg PO DAILY Fenofibrate 160 Mg Tablet 160 Mg PO DAILY Famotidine 20 Mg Tablet 20 Mg PO BIDBFRMEAL Depakote (Divalproex Sodium) 500 Mg Tablet.dr 500 Mg PO BID Cough Drops (Menthol/Herbal Drugs) 1 Each Lozenge 1 Christianne MM PRN Q2HR PRN Colace (Docusate Sodium) 100 Mg Capsule 100 Mg PO BID Clonazepam 1 Mg Tablet 1 Mg PO BID Celexa (Citalopram Hydrobromide) 40 Mg Tablet 40 Mg PO DAILY Carvedilol 12.5 Mg Tablet 12.5 Mg PO BIDWMEALS Atorvastatin Calcium 10 Mg Tablet 10 Mg PO QHS Aspirin 325 Mg Tablet 325 Mg PO DAILY Aricept (Donepezil Hcl) 5 Mg Tablet 5 Mg PO QHS Anusol-Hc (Hydrocortisone) 30 Gm Cream..g. 1 Diana RC PRN BID PRN Allopurinol 100 Mg Tablet 100 Mg PO BID ELKIN MALDONADO MD October 11, 2016 19:38
--- NOTE | 2016-10-11 22:30 | NUR ---
Behavior Intervention Response and Plan: BIRP Note: Behavior: Assumed Care of patient, patient located in Day Room at shift change. Patient exhibited the following behavior Calm, Able to Focus on Task, Drowsy. Brief assessment on rounds of vital signs, medication needs, lab studies, and pain. Treatment plan problems:1-2 Intervention: Patient assessed and the following interventions initiated safety checks 15 Minute Checks Cognitive Assessment , Head to toe Assessment , Medications. Response: After interactions and interventions patient responded in the following manner, Able to Focus on Task , Cooperative ,Drowsy. Continue to assess behaviors and condition will continue to monitor throughout the shift as needed. Plan: Continue to monitor Master Treatment Plan for patient's progress toward short term goals of Improved Mood, , shelter goals to return to previous living setting vs placement. Continue to assess patient for changes in above assessment. Monitor for medication needs, pain, and safety concerns. Hourly rounding performed to ensure safe environment.
[2016-10-12 06:15] VITALS: BP 124/57
[2016-10-12] MEDS: DIVALPROEX SODIUM 250 MG TABLET.DR. PO SCH ×2 (07:54→20:09)
[2016-10-12] MEDS: DOCUSATE SODIUM 100 MG CAPSULE PO SCH ×2 (07:54→20:09)
[2016-10-12] MEDS: CARVEDILOL 12.5 MG TABLET PO SCH ×2 (07:54→17:20)
[2016-10-12] MEDS: TAMSULOSIN 0.4 MG CAP.ER.24H. PO SCH (07:54)
[2016-10-12] MEDS: clonazePAM 1 MG TABLET PO SCH ×2 (07:54→20:10)
[2016-10-12] MEDS: ASPIRIN 325 MG TABLET PO SCH (07:54)
[2016-10-12] MEDS: FINASTERIDE 5 MG TABLET PO SCH (07:55)
[2016-10-12] MEDS: FUROSEMIDE 20 MG TABLET PO SCH (07:55)
[2016-10-12] MEDS: LISINOPRIL 20 MG TABLET PO SCH (07:55)
[2016-10-12] MEDS: QUEtiapine 25 MG TABLET. PO SCH ×3 (07:55→20:13)
[2016-10-12] MEDS: ESCITALOPRAM 10 MG TABLET. PO SCH (07:56)
[2016-10-12] MEDS: ALLOPURINOL 100 MG TABLET. PO SCH ×2 (07:56→20:09)
[2016-10-12] MEDS: FAMOTIDINE 20 MG TABLET PO SCH ×2 (07:56→17:19)
[2016-10-12] MEDS: FENOFIBRATE NANOCRYSTALLIZED 145 MG TABLET PO SCH (07:56)
[2016-10-12] MEDS: FLUTICASONE 50MCG/NASAL SPRAY 16GM BOTTLE. NS SCH (07:57)
--- NOTE | 2016-10-12 10:34 | NUR ---
Group Note [facility] Group Type [facility] Start Time: 09:40 End Time: 10:20 Problem: Depression Purpose: Increase Stimulation, Increase socialization, express thoughts/feelings Level of Participation: High Behaviors or Symptoms Observed: Pts sat within group and answered questions from the [facility] and shared experiences and thoughts and feelings around questions that were asked. Interventions: Directed Focus Plan: group Additional Comments:Pt started talking negative towards staff at placement. SW redirected him to find positive qualities about everyone and focus on the positivities. Pt continued to talk negative. SW redirected pt again to think about each situation positively and that each person is working hard to help him.
--- NOTE | 2016-10-12 10:34 | NUR ---
Behavior Intervention Response and Plan: BIRP Note: Behavior: Assumed Care of patient, patient located in Dining Room at shift change. Patient exhibited the following behavior Compliant, Social, hyperverbal. Brief assessment on rounds of vital signs, medication needs, lab studies, and pain. Treatment plan problems . Intervention: Patient assessed and the following interventions initiated safety checks 15 Minute Checks Cognitive Assessment , Head to toe Assessment , Medications. Response: After interactions and interventions patient responded in the following manner, Compliant , Attention Seeking. Continue to assess behaviors and condition will continue to monitor throughout the shift as needed. 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 Continue to assess patient for changes in above assessment. Monitor for medication needs, pain, and safety concerns. Hourly rounding performed to ensure safe environment.
--- NOTE | 2016-10-12 11:25 | NUR ---
THERAPEUTIC RECREATION GROUP NOTE TITLE :Movement to Music: Flexibility ACTIVITY : Movement/ Exercise GOAL : Increase morale, attention, flexibility. Decrease stress/anxiety. DURATION : 30 Minutes RESPONSE : No participation.
--- NOTE | 2016-10-12 11:37 | PN ---
DATE: 10/10/2016 PSYCHIATRIC PROGRESS NOTE This is late entry of 10/10/2016, covers elements not covered in my initial note. SUBJECTIVE: The patient has been irritable, per nursing report, somewhat anxious, restless, rapid in his speech, refusing medications at times. REVIEW OF SYSTEMS: Ambulation impaired with a walker. No CV, , pulmonary, eye system symptoms on review. MENTAL STATUS EXAMINATION: Reasonably oriented. Speech coherent, rapid at times. Abstraction fair, computation impaired, language function intact, attention span short. Mood and affect remain somewhat labile. LABORATORY DATA: Reviewed. IMPRESSION: Probable bipolar 1 disorder, unspecified; anxiety disorder, unspecified; impulse control disorder, unspecified. PLAN: From a psychiatric standpoint, continue current psychotropics mentioned in my initial note including Aricept, Lexapro, Klonopin, Depakote, Ativan p.r.n., melatonin and Seroquel, adjust as clinically indicated. ELKIN MALDONADO MD DR: JOSEPHINE/jersey JOB#: [id number] / [id number]
--- NOTE | 2016-10-12 11:40 | PN ---
DATE: 10/11/2016 PSYCHIATRIC PROGRESS NOTE This is late entry of 10/11/2016, covers elements not covered in my initial note. SUBJECTIVE: The patient has been pleasant, cooperative, per nursing report, rapid in his speech, somewhat impulsive, labile in his mood, but redirectable, not aggressive. REVIEW OF SYSTEMS: Ambulation impaired with a walker. No CV, , pulmonary, eye, ENT system symptoms on review. MENTAL STATUS EXAMINATION: Reasonably oriented. Speech coherent, rapid at times. Abstraction fair, computation impaired, language function intact, attention span short, mood and affect somewhat labile showing improvement. LABORATORY DATA: Reviewed. IMPRESSION: Unchanged from initial note, bipolar 1 disorder, unspecified; anxiety disorder, unspecified; impulse control disorder, unspecified. PLAN: Continue psychotropics mentioned in my initial note. MAN Rodolfo MALDONADO MD DR: JOSEPHINE/jersey JOB#: [id number] / [id number]
[2016-10-12] MEDS: OMEGA-3 FATTY ACIDS/FISH OIL 1,000 MG CAPSULE. PO SCH (11:45)
--- NOTE | 2016-10-12 14:45 | NUR ---
THERAPEUTIC RECREATION GROUP NOTE TITLE :Coffee Filter Poppy Espinosa ACTIVITY : Arts and Crafts GOAL : Increase socialization, fine motor skills, creativity DURATION : 105 Minutes RESPONSE : No participation.
--- NOTE | 2016-10-12 16:02 | NUR ---
pt up adl to meals. has been out to day room to do art projects. has written some short letters to staff regarding certain staff members he likes and what they have done for him. The notes also mention some the staff being pretty. has been compliant with meds and cares.
[2016-10-12 16:44] VITALS: BP 139/76
--- NOTE | 2016-10-12 17:00 | NUR ---
ACTIVITY THERAPY ASSESSMENT Completed based on observations and interview on this day, at this time during dinner. Pt. is very talkative and able to recall most details and facts. He is very helpful and likes to stay active and engaged. Pt. talked about his troubles at his placement but he wasn't able to answer when asked what will he do if that continues to happen. Pt. stays engaged and stimulated. 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 Initial goal: Pt. 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
--- NOTE | 2016-10-12 19:53 | PDOC ---
Exam Stanford Demential Exam: [place] Note: Please also refer to the separate dictated note~for this date of service dictated separately.~Patient seen individually. Discussed the patient with Nursing staff reviewed the chart.~Reviewed interim history and current functioning. Reviewed vital signs,~Labs/ Radiology~and current medications noted below. Continue current treatment with the changes noted in the dictated addendum note Assessment: Vital Signs: Vital Signs Date Time Temp Pulse Resp B/P (MAP) Pulse Ox O2 Delivery O2 Flow Rate FiO2 10/12/16 17:20 61 139/76 10/12/16 16:44 97.8 18 95 Room Air I&O Intake and Output 10/12/16 07:00 Intake Total 1320 ml Balance 1320 ml Intake Oral 1320 ml Current Medications: Meds: Current Medications Clonazepam (KlonoPIN) 1 mg BID PO Last administered on 10/12/16 07:54; Start 10/08/16 at 21:00 Donepezil HCl (Aricept) 5 mg QHS PO Last administered on 10/11/16 18:17; Start 10/08/16 at 21:00 Lorazepam (Ativan) 0.5 mg PRN Q6HRS PRN PO ANXIETY / AGITATION; Start 10/08/16 at 19:45 Citalopram Hydrobromide (CeleXA) 40 mg DAILY PO Last administered on 10/09/16 08:05; Start 10/09/16 at 09:00; Stop 10/09/16 at 18:44; Status DC Divalproex Sodium (Depakote) 500 mg BID PO Last administered on 10/12/16 07:54 ; Start 10/08/16 at 21:00 Melatonin 3 mg QHS PO Last administered on 10/11/16 18:17; Start 10/08/16 at 21:00 Acetaminophen (Tylenol) 650 mg PRN Q6HRS PRN PO PAIN / TEMP; Start 10/08/16 at 20:00 Allopurinol (Zyloprim) 100 mg BID PO Last administered on 10/12/16 07:56; Start 10/08/16 at 21:00 Aspirin (Roberta Aspirin) 325 mg DAILY PO Last administered on 10/12/16 07:54; Start 10/09/16 at 09:00 Atorvastatin Calcium (Lipitor) 10 mg QHS PO Last administered on 10/11/16 18: 17; Start 10/08/16 at 21:00 Carvedilol (Coreg) 12.5 mg BIDWMEALS PO Last administered on 10/12/16 17:20; Start 10/09/16 at 08:00 Diclofenac Sodium (Voltaren) 1 diana PRN Q8HRS PRN TP PAIN; Start 10/08/16 at 20: 00 Docusate Sodium (Colace) 100 mg BID PO Last administered on 10/12/16 07:54; Start 10/08/16 at 21:00 Famotidine (Pepcid) 20 mg BIDBFRMEAL PO Last administered on 10/12/16 17:19; Start 10/09/16 at 07:30 Finasteride (Proscar) 5 mg DAILY PO Last administered on 10/12/16 07:55; Start 10/09/16 at 09:00 Fluticasone Propionate (Flonase) 2 spray DAILY NS Last administered on 07:57; Start 10/09/16 at 09:00 Furosemide (Lasix) 30 mg DAILY PO Last administered on 10/12/16 07:55; Start 10/09/16 at 09:00 Hydrocortisone (Proctosol-Hc) 1 diana PRN BID PRN RC Hemorrhoids; Start 10/08/16 at 20:00 Polyethylene Glycol (miraLAX) 17 gm PRN DAILY PRN PO CONSTIPATION; Start at 09:00 Sodium Chloride (Saline Mist Nasal) 2 diana PRN BID PRN NS NASAL CONGESTION; Start 10/08/16 at 20:00 Tamsulosin HCl (Flomax) 0.4 mg DAILY PO Last administered on 10/12/16 07:54; Start 10/09/16 at 09:00 Fenofibrate (Tricor) 145 mg DAILY PO Last administered on 10/12/16 07:56; Start 10/09/16 at 09:00 Guaifenesin (MUCINEX ER with DM) 1 tab PRN Q4HRS PRN PO COUGH; Start 10/08/16 at 21:00 Lisinopril (Prinivil) 40 mg DAILY PO Last administered on 10/12/16 07:55; Start 10/09/16 at 09:00 Throat Lozenges (Cepacol Sore Throat Lozenge) 1 christianne PRN Q2HR PRN PO COUGH; Start 10/08/16 at 20:45 Escitalopram Oxalate (Lexapro) 10 mg DAILY PO Last administered on 10/12/16 07 :56; Start 10/10/16 at 09:00 Quetiapine Fumarate (SEROquel) 12.5 mg [id number] PO Last administered on 10/12/16 11:45; Start 10/10/16 at 09:00 Fish Oil (Fish Oil) 1,000 mg DAILYBFRLUN PO Last administered on 10/12/16 11: 45; Start 10/10/16 at 11:30 Vitamin D (Vitamin D3) 50,000 unit WEEKLY PO ; Start 10/17/16 at 09:00 Cyanocobalamin (Vitamin B-12) 1,000 mcg [id number] IM Last administered on 13:07; Start 10/10/16 at 11:30 Vitamin D (Vitamin D3) 2,000 unit DAILY PO Last administered on 10/11/16 08:00 ; Start 10/11/16 at 09:00; Stop 10/11/16 at 11:35; Status DC Quetiapine Fumarate (SEROquel) 12.5 mg HS PO ; Start 10/12/16 at 21:00 Active Scripts Active Reported Voltaren (Diclofenac Sodium) 100 Gm Gel..gram. 1 Diana TP PRN Q8HRS PRN Tylenol (Acetaminophen) 325 Mg Tablet 650 Mg PO PRN Q6HRS PRN Tamsulosin Hcl 0.4 Mg Cap.er.24h 0.4 Mg PO DAILY Saline Nasal [place] (Sodium Chloride) 30 Ml [place] 2 Sprays NS PRN BID PRN Miralax (Polyethylene Glycol 3350) 119 Gm Powder 17 Gm PO PRN DAILY PRN Melatonin 3 Mg Tablet 3 Mg PO QHS Lorazepam 0.5 Mg Tablet 0.5 Mg PO PRN Q6HRS PRN Lisinopril 40 Mg Tablet 40 Mg PO DAILY Lasix (Furosemide) 20 Mg Tablet 30 Mg PO DAILY Guaifenesin Dm 400-20 Mg Tab (Guaifenesin/Dextromethorphan) 1 Each Tablet 1 Tab PO PRN Q4HRS PRN Fluticasone Propionate Nasal [place] (Fluticasone Propionate) 16 Gm [place].susp 2 [place] NS DAILY Finasteride 5 Mg Tablet 5 Mg PO DAILY Fenofibrate 160 Mg Tablet 160 Mg PO DAILY Famotidine 20 Mg Tablet 20 Mg PO BIDBFRMEAL Depakote (Divalproex Sodium) 500 Mg Tablet.dr 500 Mg PO BID Cough Drops (Menthol/Herbal Drugs) 1 Each Lozenge 1 Christianne MM PRN Q2HR PRN Colace (Docusate Sodium) 100 Mg Capsule 100 Mg PO BID Clonazepam 1 Mg Tablet 1 Mg PO BID Celexa (Citalopram Hydrobromide) 40 Mg Tablet 40 Mg PO DAILY Carvedilol 12.5 Mg Tablet 12.5 Mg PO BIDWMEALS Atorvastatin Calcium 10 Mg Tablet 10 Mg PO QHS Aspirin 325 Mg Tablet 325 Mg PO DAILY Aricept (Donepezil Hcl) 5 Mg Tablet 5 Mg PO QHS Anusol-Hc (Hydrocortisone) 30 Gm Cream..g. 1 Diana RC PRN BID PRN Allopurinol 100 Mg Tablet 100 Mg PO BID ELKIN MALDONADO MD October 12, 2016 19:52
[2016-10-12] MEDS: MELATONIN 3 MG TABLET PO SCH (20:09)
[2016-10-12] MEDS: ATORVASTATIN CALCIUM 10 MG TABLET. PO SCH (20:09)
[2016-10-12] MEDS: DONEPEZIL HCL 5 MG TABLET. PO SCH (20:10)
--- NOTE | 2016-10-13 01:47 | NUR ---
Behavior Intervention Response and Plan: BIRP Note: Behavior: Assumed Care of patient, patient located in Day Room at shift change. Patient exhibited the following behavior Calm, Compliant, Cooperative. Brief assessment on rounds of vital signs, medication needs, lab studies, and pain. Treatment plan problems Alteration in Thought Process and Fall Risk. Intervention: Patient assessed and the following interventions initiated safety checks 15 Minute Checks Cognitive Assessment , Medications , ADL's. Response: After interactions and interventions patient responded in the following manner, Calm , Interactive ,Compliant. Continue to assess behaviors and condition will continue to monitor throughout the shift as needed. 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 Continue to assess patient for changes in above assessment. Monitor for medication needs, pain, and safety concerns. Hourly rounding performed to ensure safe environment.
[2016-10-13 06:08] VITALS: BP 137/59
--- NOTE | 2016-10-13 07:00 | PN ---
DATE: 10/09/2016 SUBJECTIVE: This is a late entry 10/09/2016, covers elements not covered in my initial note. The patient remains somewhat rapid in his walking and anxious at times. REVIEW OF SYSTEMS: Ambulation impaired with a walker. No CV, , pulmonary, or eye system symptoms on review. MENTAL STATUS EXAM: Reasonably oriented. Speech coherent. A little pressured at times. Abstraction fair and computation impaired. Language function intact. Mood and affect somewhat labile at times. LABORATORY DATA: Reviewed. IMPRESSION: Bipolar 1 disorder, unspecified; major depressive disorder, and anxiety disorder, unspecified. PLAN: Continue Aricept 5 mg a day. Change Celexa to Lexapro 10 mg a day. Change Klonopin to Seroquel 12.5 mg twice a day. Continue Depakote DR 500 b.i.d., Ativan, and p.r.n. melatonin 3 mg at bedtime. Valproic acid level therapeutic at 59. Adjust further as clinically indicated. ELKIN MALDONADO MD DR: JOSEPHINE/jersey JOB#: [id number] / [id number]
[2016-10-13] MEDS: ASPIRIN 325 MG TABLET PO SCH (09:38)
[2016-10-13] MEDS: FLUTICASONE 50MCG/NASAL SPRAY 16GM BOTTLE. NS SCH (09:38)
[2016-10-13] MEDS: ESCITALOPRAM 10 MG TABLET. PO SCH (09:38)
[2016-10-13] MEDS: DIVALPROEX SODIUM 250 MG TABLET.DR. PO SCH ×2 (09:39→20:28)
[2016-10-13] MEDS: TAMSULOSIN 0.4 MG CAP.ER.24H. PO SCH (09:39)
[2016-10-13] MEDS: FINASTERIDE 5 MG TABLET PO SCH (09:39)
[2016-10-13] MEDS: DOCUSATE SODIUM 100 MG CAPSULE PO SCH ×2 (09:39→20:29)
[2016-10-13] MEDS: QUEtiapine 25 MG TABLET. PO SCH ×3 (09:40→20:29)
[2016-10-13] MEDS: FENOFIBRATE NANOCRYSTALLIZED 145 MG TABLET PO SCH (09:40)
[2016-10-13] MEDS: FAMOTIDINE 20 MG TABLET PO SCH ×2 (09:40→17:54)
[2016-10-13] MEDS: clonazePAM 1 MG TABLET PO SCH ×2 (09:40→20:29)
[2016-10-13] MEDS: ALLOPURINOL 100 MG TABLET. PO SCH ×2 (09:42→20:29)
[2016-10-13 09:54] VITALS: BP 156/68
[2016-10-13] MEDS: CARVEDILOL 12.5 MG TABLET PO SCH ×2 (09:56→17:00)
[2016-10-13] MEDS: LISINOPRIL 20 MG TABLET PO SCH (09:57)
[2016-10-13] MEDS: FUROSEMIDE 20 MG TABLET PO SCH (09:57)
--- NOTE | 2016-10-13 12:28 | NUR ---
SW GROUP NOTE TITLE: Jenga! ACTIVITY: Jenga blocks w/various prompts to be answered by the group. DURATION: 45 minutes TARGET BEHAVIOR: Cognitive, social skills, coordination/skill, directed focus, reminisce, therapeutic expression RESPONSE: Active participant. Did well allowing others to actively participate.
[2016-10-13] MEDS: OMEGA-3 FATTY ACIDS/FISH OIL 1,000 MG CAPSULE. PO SCH (12:37)
[2016-10-13] MEDS: ACETAMINOPHEN 325 MG TABLET PO PRN (12:38)
--- NOTE | 2016-10-13 14:00 | NUR ---
Behavior Intervention Response and Plan: BIRP Note: Behavior: Assumed Care of patient, patient located in Day Room at shift change. Patient exhibited the following behavior Calm, Cooperative, Attention Seeking. Brief assessment on rounds of vital signs, medication needs, lab studies, and pain. Treatment plan problems . Intervention: Patient assessed and the following interventions initiated safety checks 15 Minute Checks Call juárez in reach , Medications , Personal Alarm in place. Response: After interactions and interventions patient responded in the following manner, Calm , Cooperative ,Compliant. Continue to assess behaviors and condition will continue to monitor throughout the shift as needed. 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 Continue to assess patient for changes in above assessment. Monitor for medication needs, pain, and safety concerns. Hourly rounding performed to ensure safe environment.
--- NOTE | 2016-10-13 14:00 | NUR ---
THERAPEUTIC RECREATION GROUP NOTE TITLE :Dance and Sing along with [employer] Songs/ Poppy Recognition ACTIVITY : Music GOAL : Increase socialization, elevate mood, stimulate memory DURATION : 60 Minutes RESPONSE : No participation.
--- NOTE | 2016-10-13 15:57 | NUR ---
Group Note SB Group Type "What is your Shell" Start Time: 9:30 End Time: 10:50 Problem: Anxiety Purpose: Express Feelings, Increase socialization, Increase self awareness Level of Participation: High Group: In observation of National turtle awareness day, Pts discussed facts about turtle, then directed to talk about qualities a turtle has such as "non-assertive",what "non assertive" looks like. Why a turtle has a shell- related the turtles shell to what each pts "shell" looks like. While discussing this pts colored and put together their own turtle. Interventions: Directed Focus, Clarification Plan: Group Participation, higher level Additional Comments: Pt was very involved in conversation as well as making his own turtle. Pt was engaged in what other pts were saying.
[2016-10-13 16:20] VITALS: BP 109/47
[2016-10-13] MEDS: ATORVASTATIN CALCIUM 10 MG TABLET. PO SCH (20:28)
[2016-10-13] MEDS: MELATONIN 3 MG TABLET PO SCH (20:28)
[2016-10-13] MEDS: DONEPEZIL HCL 5 MG TABLET. PO SCH (20:30)
--- NOTE | 2016-10-13 21:01 | PDOC ---
Exam Stanford Demential Exam: [place] Note: Please also refer to the separate dictated note~for this date of service dictated separately.~Patient seen individually. Discussed the patient with Nursing staff reviewed the chart.~Reviewed interim history and current functioning. Reviewed vital signs,~Labs/ Radiology~and current medications noted below. Continue current treatment with the changes noted in the dictated addendum note Assessment: Vital Signs: Vital Signs Date Time Temp Pulse Resp B/P (MAP) Pulse Ox O2 Delivery O2 Flow Rate FiO2 10/13/16 17:00 67 109/47 10/13/16 16:20 97.9 16 92 10/12/16 16:44 Room Air I&O Intake and Output 10/13/16 07:00 Intake Total 1320 ml Balance 1320 ml Intake Oral 1320 ml Current Medications: Meds: Current Medications Clonazepam (KlonoPIN) 1 mg BID PO Last administered on 10/13/16 20:29; Start 10/08/16 at 21:00 Donepezil HCl (Aricept) 5 mg QHS PO Last administered on 10/13/16 20:30; Start 10/08/16 at 21:00 Lorazepam (Ativan) 0.5 mg PRN Q6HRS PRN PO ANXIETY / AGITATION; Start 10/08/16 at 19:45 Citalopram Hydrobromide (CeleXA) 40 mg DAILY PO Last administered on 10/09/16 08:05; Start 10/09/16 at 09:00; Stop 10/09/16 at 18:44; Status DC Divalproex Sodium (Depakote) 500 mg BID PO Last administered on 10/13/16 20:28 ; Start 10/08/16 at 21:00 Melatonin 3 mg QHS PO Last administered on 10/13/16 20:28; Start 10/08/16 at 21:00 Acetaminophen (Tylenol) 650 mg PRN Q6HRS PRN PO PAIN / TEMP Last administered on 10/13/16 12:38; Start 10/08/16 at 20:00 Allopurinol (Zyloprim) 100 mg BID PO Last administered on 10/13/16 20:29; Start 10/08/16 at 21:00 Aspirin (Roberta Aspirin) 325 mg DAILY PO Last administered on 10/13/16 09:38; Start 10/09/16 at 09:00 Atorvastatin Calcium (Lipitor) 10 mg QHS PO Last administered on 10/13/16 20: 28; Start 10/08/16 at 21:00 Carvedilol (Coreg) 12.5 mg BIDWMEALS PO Last administered on 10/13/16 09:56; Start 10/09/16 at 08:00 Diclofenac Sodium (Voltaren) 1 diana PRN Q8HRS PRN TP PAIN; Start 10/08/16 at 20: 00 Docusate Sodium (Colace) 100 mg BID PO Last administered on 10/13/16 20:29; Start 10/08/16 at 21:00 Famotidine (Pepcid) 20 mg BIDBFRMEAL PO Last administered on 10/13/16 17:54; Start 10/09/16 at 07:30 Finasteride (Proscar) 5 mg DAILY PO Last administered on 10/13/16 09:39; Start 10/09/16 at 09:00 Fluticasone Propionate (Flonase) 2 spray DAILY NS Last administered on 09:38; Start 10/09/16 at 09:00 Furosemide (Lasix) 30 mg DAILY PO Last administered on 10/13/16 09:57; Start 10/09/16 at 09:00 Hydrocortisone (Proctosol-Hc) 1 diana PRN BID PRN RC Hemorrhoids; Start 10/08/16 at 20:00 Polyethylene Glycol (miraLAX) 17 gm PRN DAILY PRN PO CONSTIPATION; Start at 09:00 Sodium Chloride (Saline Mist Nasal) 2 diana PRN BID PRN NS NASAL CONGESTION; Start 10/08/16 at 20:00 Tamsulosin HCl (Flomax) 0.4 mg DAILY PO Last administered on 10/13/16 09:39; Start 10/09/16 at 09:00 Fenofibrate (Tricor) 145 mg DAILY PO Last administered on 10/13/16 09:40; Start 10/09/16 at 09:00 Guaifenesin (MUCINEX ER with DM) 1 tab PRN Q4HRS PRN PO COUGH; Start 10/08/16 at 21:00 Lisinopril (Prinivil) 40 mg DAILY PO Last administered on 10/13/16 09:57; Start 10/09/16 at 09:00 Throat Lozenges (Cepacol Sore Throat Lozenge) 1 christianne PRN Q2HR PRN PO COUGH; Start 10/08/16 at 20:45 Escitalopram Oxalate (Lexapro) 10 mg DAILY PO Last administered on 10/13/16 09 :38; Start 10/10/16 at 09:00 Quetiapine Fumarate (SEROquel) 12.5 mg [id number] PO Last administered on 10/13/16 13:59; Start 10/10/16 at 09:00 Fish Oil (Fish Oil) 1,000 mg DAILYBFRLUN PO Last administered on 10/13/16 12: 37; Start 10/10/16 at 11:30 Vitamin D (Vitamin D3) 50,000 unit WEEKLY PO ; Start 10/17/16 at 09:00 Cyanocobalamin (Vitamin B-12) 1,000 mcg [id number] IM Last administered on 13:07; Start 10/10/16 at 11:30 Vitamin D (Vitamin D3) 2,000 unit DAILY PO Last administered on 10/11/16 08:00 ; Start 10/11/16 at 09:00; Stop 10/11/16 at 11:35; Status DC Quetiapine Fumarate (SEROquel) 12.5 mg HS PO Last administered on 10/13/16 20: 29; Start 10/12/16 at 21:00 Active Scripts Active Reported Voltaren (Diclofenac Sodium) 100 Gm Gel..gram. 1 Diana TP PRN Q8HRS PRN Tylenol (Acetaminophen) 325 Mg Tablet 650 Mg PO PRN Q6HRS PRN Tamsulosin Hcl 0.4 Mg Cap.er.24h 0.4 Mg PO DAILY Saline Nasal [place] (Sodium Chloride) 30 Ml [place] 2 Sprays NS PRN BID PRN Miralax (Polyethylene Glycol 3350) 119 Gm Powder 17 Gm PO PRN DAILY PRN Melatonin 3 Mg Tablet 3 Mg PO QHS Lorazepam 0.5 Mg Tablet 0.5 Mg PO PRN Q6HRS PRN Lisinopril 40 Mg Tablet 40 Mg PO DAILY Lasix (Furosemide) 20 Mg Tablet 30 Mg PO DAILY Guaifenesin Dm 400-20 Mg Tab (Guaifenesin/Dextromethorphan) 1 Each Tablet 1 Tab PO PRN Q4HRS PRN Fluticasone Propionate Nasal [place] (Fluticasone Propionate) 16 Gm [place].susp 2 [place] NS DAILY Finasteride 5 Mg Tablet 5 Mg PO DAILY Fenofibrate 160 Mg Tablet 160 Mg PO DAILY Famotidine 20 Mg Tablet 20 Mg PO BIDBFRMEAL Depakote (Divalproex Sodium) 500 Mg Tablet.dr 500 Mg PO BID Cough Drops (Menthol/Herbal Drugs) 1 Each Lozenge 1 Christianne MM PRN Q2HR PRN Colace (Docusate Sodium) 100 Mg Capsule 100 Mg PO BID Clonazepam 1 Mg Tablet 1 Mg PO BID Celexa (Citalopram Hydrobromide) 40 Mg Tablet 40 Mg PO DAILY Carvedilol 12.5 Mg Tablet 12.5 Mg PO BIDWMEALS Atorvastatin Calcium 10 Mg Tablet 10 Mg PO QHS Aspirin 325 Mg Tablet 325 Mg PO DAILY Aricept (Donepezil Hcl) 5 Mg Tablet 5 Mg PO QHS Anusol-Hc (Hydrocortisone) 30 Gm Cream..g. 1 Diana RC PRN BID PRN Allopurinol 100 Mg Tablet 100 Mg PO BID ELKIN MALDONADO MD October 13, 2016 21:01
--- NOTE | 2016-10-13 21:30 | NUR ---
Behavior Intervention Response and Plan: BIRP Note: Behavior: Assumed Care of patient, patient located in Day Room at shift change. Patient exhibited the following behavior Calm, Compliant, Cooperative. Brief assessment on rounds of vital signs, medication needs, lab studies, and pain. Treatment plan problems Alteration in Thought Process and Fall Risk. Intervention: Patient assessed and the following interventions initiated safety checks 15 Minute Checks Cognitive Assessment , Medications , Oral Hydration. Response: After interactions and interventions patient responded in the following manner, Calm , Compliant ,Cooperative. Continue to assess behaviors and condition will continue to monitor throughout the shift as needed. Plan: Continue to monitor Master Treatment Plan for patient's progress toward short term goals of Decreased Agitation, Decreased Aggression, terminal carman goals to return to previous living setting vs placement. Continue to assess patient for changes in above assessment. Monitor for medication needs, pain, and safety concerns. Hourly rounding performed to ensure safe environment.
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
[2016-10-14 06:00] VITALS: BP 122/74
[2016-10-14] MEDS: FINASTERIDE 5 MG TABLET PO SCH (08:48)
[2016-10-14] MEDS: ESCITALOPRAM 10 MG TABLET. PO SCH (08:49)
[2016-10-14] MEDS: ASPIRIN 325 MG TABLET PO SCH (08:49)
[2016-10-14] MEDS: DIVALPROEX SODIUM 250 MG TABLET.DR. PO SCH ×2 (08:49→20:19)
[2016-10-14] MEDS: FENOFIBRATE NANOCRYSTALLIZED 145 MG TABLET PO SCH (08:49)
[2016-10-14] MEDS: DOCUSATE SODIUM 100 MG CAPSULE PO SCH ×2 (08:50→20:19)
[2016-10-14] MEDS: TAMSULOSIN 0.4 MG CAP.ER.24H. PO SCH (08:50)
[2016-10-14] MEDS: FAMOTIDINE 20 MG TABLET PO SCH ×2 (08:50→17:08)
[2016-10-14] MEDS: QUEtiapine 25 MG TABLET. PO SCH ×3 (08:51→20:19)
[2016-10-14] MEDS: ALLOPURINOL 100 MG TABLET. PO SCH ×2 (08:52→20:19)
[2016-10-14] MEDS: LISINOPRIL 20 MG TABLET PO SCH (08:53)
[2016-10-14] MEDS: FLUTICASONE 50MCG/NASAL SPRAY 16GM BOTTLE. NS SCH (08:53)
[2016-10-14] MEDS: CARVEDILOL 12.5 MG TABLET PO SCH (08:53)
[2016-10-14] MEDS: clonazePAM 1 MG TABLET PO SCH (08:58)
[2016-10-14] MEDS: FUROSEMIDE 20 MG TABLET PO SCH (09:00)
--- NOTE | 2016-10-14 10:20 | NUR ---
THERAPEUTIC RECREATION GROUP NOTE TITLE :[place]- Led by Gera ACTIVITY : Cognitive Stimulation GOAL : Stimulate memory, Increase problem solving DURATION : 60 minutes RESPONSE : Full participation reported by CNMaeve
[2016-10-14] MEDS: OMEGA-3 FATTY ACIDS/FISH OIL 1,000 MG CAPSULE. PO SCH (12:18)
--- NOTE | 2016-10-14 12:30 | NUR ---
Pt abruptly approaches this nurse and yells through the glass at the nurses station "I have a headache!" This nurse asked if he wanted something for it? Pt yells "I told you this morning!" This nurse stated "No, you didn't mention that when I was assessing you." Pt replied "Yes, and you said, you were too busy!" "I'm not going to argue! I'm not stupid!" This nurse gave Tylenol 650 mg. at this time for headache. Pt refused to give a pain scale number. Will continue to monitor and report.
[2016-10-14] MEDS: ACETAMINOPHEN 325 MG TABLET PO PRN (12:36)
--- NOTE | 2016-10-14 12:47 | NUR ---
Behavior Intervention Response and Plan: BIRP Note: Behavior: Assumed Care of patient, patient located in Day Room at shift change. Patient exhibited the following behavior Defensive, Sarcastic, Agitated. Brief assessment on rounds of vital signs, medication needs, lab studies, and pain. Treatment plan problems . Intervention: Patient assessed and the following interventions initiated safety checks 15 Minute Checks Personal Alarm in place , Call juárez in reach , Oral Hydration. Response: After interactions and interventions patient responded in the following manner, Sarcastic , Restless ,Defensive. Continue to assess behaviors and condition will continue to monitor throughout the shift as needed. Plan: Continue to monitor Master Treatment Plan for patient's progress toward short term goals of Decreased Agitation, Decreased Anxiety, detention goals to return to previous living setting vs placement. Continue to assess patient for changes in above assessment. Monitor for medication needs, pain, and safety concerns. Hourly rounding performed to ensure safe environment.
--- NOTE | 2016-10-14 13:00 | NUR ---
THERAPEUTIC RECREATION GROUP NOTE TITLE :Characteristics of a [place] ACTIVITY : Cognitive Stimulation GOAL : Stimulate memory, Increase problem solving DURATION : 45 minutes RESPONSE : Full participation. Pt. sat at a table coloring away from the group; however, he constantly offered suggestions. He needed occasional prompting but was quick to comply.
--- NOTE | 2016-10-14 13:30 | NUR ---
Pt c/o of headache that is lingering after Tylenol 650 mg. given. Pt also c/o ing of edema in lower legs, noted 2+ edema in bilat ankles. Dr. Britt will see pt. on his rounds. Will continue to monitor and report.
--- NOTE | 2016-10-14 14:33 | NUR ---
REX in day room when Pt. 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 SW sat down and talked w/PT. while he colored at the table. Pt. was unable to maintain focus of the questions SW asked. PT. also repeated many of the same "stories" he shared w/this REX last week. Pt. could not describe any time where he was responsible for his own actions. Pt. blamed several people at his facilities for making him come to this facility as he stated they all lied about things. Pt. stated he see's a therapist in [place] and SW asked for the reason he sees a therapist. Pt. stated he was sent to her on an "emergency basis", but according to Pt. when he met w/her and she asked about the reason for seeing her, PT. stated he did not know why. Pt. then reported his therapist read thru the envelope of paperwork that was sent with him and determined that there was nothing wrong with him, that he didn't do anything wrong and that he was of sound mind. SW then asked why Pt/ continues to see therapist and Pt. stated he likes her, so he continues to attend the appointments. Pt. name dropped several workers at his facility and highlighted all of the "nice things" he does for them on a regular basis. Pt. then reported having some people that give him gifts because he does nice things for them. It was very apparent Pt. was attempting to depict himself as this very nice, very well liked person that doesn't make any mistakes, there are just staff members that are out to get him. When SW asked what the staff members have to gain by lying about him and Pt. was not able to address the question. It was reported by Pt's nurse this AM to this SW Pt. became agitated and verbally aggressive when demanding assistance for his headache and leg aches. Pt. stated he had told nurse before and nurse reminded him he had not asked nurse for any headache medicine.
[2016-10-14 16:20] VITALS: BP 132/84
[2016-10-14] MEDS: CARVEDILOL 6.25 MG TABLET PO SCH (18:30)
[2016-10-14] MEDS: clonazePAM 0.5 MG TABLET PO SCH (20:19)
[2016-10-14] MEDS: DONEPEZIL HCL 5 MG TABLET. PO SCH (20:19)
[2016-10-14] MEDS: ATORVASTATIN CALCIUM 10 MG TABLET. PO SCH (20:19)
[2016-10-14] MEDS: MELATONIN 3 MG TABLET PO SCH (20:19)
[2016-10-14] MEDS: busPIRone 5 MG TABLET. PO SCH (20:21)
--- NOTE | 2016-10-14 20:50 | PDOC ---
Exam [facility] Demential Exam: [facility] Note: Please also refer to the separate dictated note~for this date of service dictated separately.~Patient seen individually. Discussed the patient with Nursing staff reviewed the chart.~Reviewed interim history and current functioning. Reviewed vital signs,~Labs/ Radiology~and current medications noted below. Continue current treatment with the changes noted in the dictated addendum note Assessment: Vital Signs: Vital Signs Date Time Temp Pulse Resp B/P (MAP) Pulse Ox O2 Delivery O2 Flow Rate FiO2 10/14/16 18:30 68 10/14/16 16:20 97.4 18 132/84 (100) 93 10/14/16 06:00 Room Air I&O Intake and Output 10/14/16 07:00 Intake Total 1040 ml Balance 1040 ml Intake Oral 1040 ml Current Medications: Meds: Current Medications Clonazepam (KlonoPIN) 1 mg BID PO Last administered on 10/14/16 08:58; Start 10/08/16 at 21:00; Stop 10/14/16 at 19:00; Status DC Donepezil HCl (Aricept) 5 mg QHS PO Last administered on 10/14/16 20:19; Start 10/08/16 at 21:00 Lorazepam (Ativan) 0.5 mg PRN Q6HRS PRN PO ANXIETY / AGITATION; Start 10/08/16 at 19:45 Citalopram Hydrobromide (CeleXA) 40 mg DAILY PO Last administered on 10/09/16 08:05; Start 10/09/16 at 09:00; Stop 10/09/16 at 18:44; Status DC Divalproex Sodium (Depakote) 500 mg BID PO Last administered on 10/14/16 20:19 ; Start 10/08/16 at 21:00 Melatonin 3 mg QHS PO Last administered on 10/14/16 20:19; Start 10/08/16 at 21:00 Acetaminophen (Tylenol) 650 mg PRN Q6HRS PRN PO PAIN / TEMP Last administered on 10/14/16 12:36; Start 10/08/16 at 20:00 Allopurinol (Zyloprim) 100 mg BID PO Last administered on 10/14/16 20:19; Start 10/08/16 at 21:00 Aspirin (Roberta Aspirin) 325 mg DAILY PO Last administered on 10/14/16 08:49; Start 10/09/16 at 09:00 Atorvastatin Calcium (Lipitor) 10 mg QHS PO Last administered on 10/14/16 20: 19; Start 10/08/16 at 21:00 Carvedilol (Coreg) 12.5 mg BIDWMEALS PO Last administered on 10/14/16 08:53; Start 10/09/16 at 08:00; Stop 10/14/16 at 13:58; Status DC Diclofenac Sodium (Voltaren) 1 diana PRN Q8HRS PRN TP PAIN; Start 10/08/16 at 20: 00 Docusate Sodium (Colace) 100 mg BID PO Last administered on 10/14/16 20:19; Start 10/08/16 at 21:00 Famotidine (Pepcid) 20 mg BIDBFRMEAL PO Last administered on 10/14/16 17:08; Start 10/09/16 at 07:30 Finasteride (Proscar) 5 mg DAILY PO Last administered on 10/14/16 08:48; Start 10/09/16 at 09:00 Fluticasone Propionate (Flonase) 2 spray DAILY NS Last administered on 08:53; Start 10/09/16 at 09:00 Furosemide (Lasix) 30 mg DAILY PO Last administered on 10/14/16 09:00; Start 10/09/16 at 09:00; Stop 10/14/16 at 13:59; Status DC Hydrocortisone (Proctosol-Hc) 1 diana PRN BID PRN RC Hemorrhoids; Start 10/08/16 at 20:00 Polyethylene Glycol (miraLAX) 17 gm PRN DAILY PRN PO CONSTIPATION; Start at 09:00 Sodium Chloride (Saline Mist Nasal) 2 diana PRN BID PRN NS NASAL CONGESTION; Start 10/08/16 at 20:00 Tamsulosin HCl (Flomax) 0.4 mg DAILY PO Last administered on 10/14/16 08:50; Start 10/09/16 at 09:00 Fenofibrate (Tricor) 145 mg DAILY PO Last administered on 10/14/16 08:49; Start 10/09/16 at 09:00 Guaifenesin (MUCINEX ER with DM) 1 tab PRN Q4HRS PRN PO COUGH; Start 10/08/16 at 21:00 Lisinopril (Prinivil) 40 mg DAILY PO Last administered on 10/14/16 08:53; Start 10/09/16 at 09:00 Throat Lozenges (Cepacol Sore Throat Lozenge) 1 christianne PRN Q2HR PRN PO COUGH; Start 10/08/16 at 20:45 Escitalopram Oxalate (Lexapro) 10 mg DAILY PO Last administered on 10/14/16 08 :49; Start 10/10/16 at 09:00 Quetiapine Fumarate (SEROquel) 12.5 mg [id number] PO Last administered on 10/14/16 14:00; Start 10/10/16 at 09:00 Fish Oil (Fish Oil) 1,000 mg DAILYBFRLUN PO Last administered on 10/14/16 12: 18; Start 10/10/16 at 11:30 Vitamin D (Vitamin D3) 50,000 unit WEEKLY PO ; Start 10/17/16 at 09:00 Cyanocobalamin (Vitamin B-12) 1,000 mcg [id number] IM Last administered on 13:07; Start 10/10/16 at 11:30 Vitamin D (Vitamin D3) 2,000 unit DAILY PO Last administered on 10/11/16 08:00 ; Start 10/11/16 at 09:00; Stop 10/11/16 at 11:35; Status DC Quetiapine Fumarate (SEROquel) 12.5 mg HS PO Last administered on 10/14/16 20: 19; Start 10/12/16 at 21:00 Carvedilol (Coreg) 6.25 mg BIDWMEALS PO Last administered on 10/14/16 18:30; Start 10/14/16 at 17:00 Furosemide (Lasix) 40 mg DAILY PO ; Start 10/15/16 at 09:00 Potassium Chloride (Klor-Con) 20 meq DAILYWBKFT PO ; Start 10/15/16 at 08:00 Buspirone HCl (Buspar) 5 mg BID PO Last administered on 10/14/16 20:21; Start 10/14/16 at 21:00 Clonazepam (KlonoPIN) 1 mg DAILY PO ; Start 10/15/16 at 09:00; Stop 10/17/16 at 11:30 Clonazepam (KlonoPIN) 0.5 mg HS PO Last administered on 10/14/16t 20:19; Start 10/14/16 at 21:00; Stop 10/16/16 at 23:00 Clonazepam (KlonoPIN) 0.5 mg BID PO ; Start 10/18/16 at 09:00 Active Scripts Active Reported Voltaren (Diclofenac Sodium) 100 Gm Gel..gram. 1 Diana TP PRN Q8HRS PRN Tylenol (Acetaminophen) 325 Mg Tablet 650 Mg PO PRN Q6HRS PRN Tamsulosin Hcl 0.4 Mg Cap.er.24h 0.4 Mg PO DAILY Saline Nasal [place] (Sodium Chloride) 30 Ml [place] 2 Sprays NS PRN BID PRN Miralax (Polyethylene Glycol 3350) 119 Gm Powder 17 Gm PO PRN DAILY PRN Melatonin 3 Mg Tablet 3 Mg PO QHS Lorazepam 0.5 Mg Tablet 0.5 Mg PO PRN Q6HRS PRN Lisinopril 40 Mg Tablet 40 Mg PO DAILY Lasix (Furosemide) 20 Mg Tablet 30 Mg PO DAILY Guaifenesin Dm 400-20 Mg Tab (Guaifenesin/Dextromethorphan) 1 Each Tablet 1 Tab PO PRN Q4HRS PRN Fluticasone Propionate Nasal [place] (Fluticasone Propionate) 16 Gm [place].susp 2 [place] NS DAILY Finasteride 5 Mg Tablet 5 Mg PO DAILY Fenofibrate 160 Mg Tablet 160 Mg PO DAILY Famotidine 20 Mg Tablet 20 Mg PO BIDBFRMEAL Depakote (Divalproex Sodium) 500 Mg Tablet.dr 500 Mg PO BID Cough Drops (Menthol/Herbal Drugs) 1 Each Lozenge 1 Christianne MM PRN Q2HR PRN Colace (Docusate Sodium) 100 Mg Capsule 100 Mg PO BID Clonazepam 1 Mg Tablet 1 Mg PO BID Celexa (Citalopram Hydrobromide) 40 Mg Tablet 40 Mg PO DAILY Carvedilol 12.5 Mg Tablet 12.5 Mg PO BIDWMEALS Atorvastatin Calcium 10 Mg Tablet 10 Mg PO QHS Aspirin 325 Mg Tablet 325 Mg PO DAILY Aricept (Donepezil Hcl) 5 Mg Tablet 5 Mg PO QHS Anusol-Hc (Hydrocortisone) 30 Gm Cream..g. 1 Diana RC PRN BID PRN Allopurinol 100 Mg Tablet 100 Mg PO BID ELKIN MALDONADO MD October 14, 2016 20:50
--- NOTE | 2016-10-15 04:43 | NUR ---
Behavior Intervention Response and Plan: BIRP Note: Behavior: Assumed Care of patient, patient located in Day Room at shift change. Patient exhibited the following behavior Calm, Compliant, Appropriate. Brief assessment on rounds of vital signs, medication needs, lab studies, and pain. Treatment plan problems Alteration in Thought Process and Fall Risk. Intervention: Patient assessed and the following interventions initiated safety checks 15 Minute Checks Cognitive Assessment , Medications , Oral Hydration. Response: After interactions and interventions patient responded in the following manner, Calm , Compliant ,Cooperative. Continue to assess behaviors and condition will continue to monitor throughout the shift as needed. Plan: Continue to monitor Master Treatment Plan for patient's progress toward short term goals of Decreased Agitation, Decreased Aggression, intermediate designer goals to return to previous living setting vs placement. Continue to assess patient for changes in above assessment. Monitor for medication needs, pain, and safety concerns. Hourly rounding performed to ensure safe environment.
[2016-10-15 05:59] VITALS: BP 109/62
[2016-10-15 06:37] LABS: BASO % 1 % (0-3); EOS # 0.3 x10^3/uL (0.0-0.7); EOS % 7 % (0-3); HEMATOCRIT 40.5 % (39.0-53.0); HEMOGLOBIN 13.4 g/dL (13.0-17.5); LYMPH # 1.6 x10^3/uL (1.0-4.8); LYMPH % 34 % (24-48); MEAN CORPUSCULAR HEMOGLOBIN 29 pg (25-35); MEAN CORPUSCULAR HGB CONC 33 g/dL (31-37); MEAN CORPUSCULAR VOLUME 88 fL (79-100); MONO # 0.6 x10^3/uL (0.0-1.1); MONO % 14 % (0-9); NEUT # 2.1 x10^3uL (1.8-7.7); NEUT % 44 % (31-73); PLATELET COUNT 219 x10^3/uL (140-400); RED CELL DISTRIBUTION WIDTH 15.3 % (11.5-14.5); WHITE BLOOD COUNT 4.7 x10^3/uL (4.0-11.0)
--- NOTE | 2016-10-15 06:45 | PN ---
DATE: 10/13/2016 PSYCHIATRIC PROGRESS NOTE This is a late entry of 10/13/2016, covers elements not covered in my initial note. SUBJECTIVE: The patient has been participating in activities, remains somewhat pressured in his speech and movements at times, but was active and singing in arts and crafts groups. No sexually inappropriate behavior is noted on 10/13/2016, which is an improvement from the day before. REVIEW OF SYSTEMS: Ambulation impaired with a walker. No CV, , pulmonary, eye system symptoms on review. MENTAL STATUS EXAM: Reasonably oriented. Speech coherent, rapid at times. Abstraction fair. Computation somewhat impaired. Language function intact. Attention span short. Mood and affect showing improvement. LABORATORY DATA: Reviewed. IMPRESSION: Probable bipolar 1 disorder, unspecified; history of major depressive disorder; impulse control disorder. PLAN: Continue current psychotropics mentioned in my initial note. Valproic acid level is [address] 500 b[address]i.d. We will maintain this together with Seroquel, Aricept, Lexapro, Klonopin, along with Ativan p.r.n., melatonin 3 mg at bedtime. Adjust further as clinically indicated. MAN Rodolfo MALDONADO MD DR: JOSEPHINE/jersey JOB#: [id number] / [id number]
[2016-10-15 06:49] LABS: ALBUMIN 3.1 g/dL (3.4-5.0); ALBUMIN/GLOBULIN RATIO 0.9 (1.0-1.7); C REACTIVE PROTEIN 5.1 mg/L (0-3.3); CALCIUM 8.5 mg/dL (8.5-10.1); CREATININE 1.4 mg/dL (0.7-1.3); GFR 50.2; POTASSIUM 3.9 mmol/L (3.5-5.1); TOTAL BILIRUBIN 0.4 mg/dL (0.2-1.0); TOTAL PROTEIN 6.6 g/dL (6.4-8.2)
[2016-10-15 08:01] LABS: SEDIMENTATION RATE 3 (0-15)
--- NOTE | 2016-10-15 08:37 | PN ---
DATE: 10/14/2016 SUBJECTIVE: The patient is a 70-year-old male patient. He was asked to see as he started complaining of marked of both legs. He also complained of headache. His blood pressure also is borderline, he is on Coreg 12.5 mg twice a day as well as lisinopril 40 mg once a day. PHYSICAL EXAMINATION: GENERAL: On examining him, he looked well and was clearly in no apparent respiratory distress. He was slightly pale, but no jaundice or cyanosis. No lymphadenopathy or thyromegaly; however, he has bilateral lower limb edema. VITAL SIGNS: His heart rate was 61, blood pressure 122/74, temperature was 97.6, respiratory rate 22, and oxygen saturation was 91% on room air. HEAD, EYES, EARS, NOSE AND THROAT: Showed normocephalic, atraumatic. NECK: Supple. HEART: Showed normal first and second heart sounds with no gallop, rub or murmur. CHEST: Clear to auscultation. No crepitation or rhonchi. ABDOMEN: Distended, soft, nontender. NEUROLOGIC: He was awake, alert. All his cranial nerves are intact. EXTREMITIES: He moves extremities without difficulty. He has bilateral lower limb edema. LABORATORY DATA: Showed that his serum sodium 142, potassium 3.7, chloride 105, bicarbonate 31, anion gap of 6, BUN 24, creatinine 1.4. Estimated GFR was 50 mL per minute. His glucose 145, calcium was 8.7, magnesium 2.1. White cell count was 5800, hemoglobin 14, hematocrit 41, MCV 88 and platelet count 251,000. PLAN: Reviewing his medication, he is on Coreg 12.5 mg twice a day, and Lasix mg once a day, as well as lisinopril 40 mg once a day. My plan is to increase his Lasix to 40 mg once a day, cut down his carvedilol to 6.25 mg twice a day, and add potassium supplement. We will repeat all his labs tomorrow morning and we will follow him closely. SHIRIN CORNELIUS MD DR: NEELAM/jersey JOB#: [id number] / [id number]
[2016-10-15] MEDS: FLUTICASONE 50MCG/NASAL SPRAY 16GM BOTTLE. NS SCH (09:00)
[2016-10-15] MEDS: FAMOTIDINE 20 MG TABLET PO SCH ×2 (09:56→17:16)
[2016-10-15] MEDS: ESCITALOPRAM 10 MG TABLET. PO SCH (09:56)
[2016-10-15] MEDS: LISINOPRIL 20 MG TABLET PO SCH (09:56)
[2016-10-15] MEDS: DOCUSATE SODIUM 100 MG CAPSULE PO SCH ×2 (09:56→20:06)
[2016-10-15] MEDS: FENOFIBRATE NANOCRYSTALLIZED 145 MG TABLET PO SCH (09:56)
[2016-10-15] MEDS: ASPIRIN 325 MG TABLET PO SCH (09:56)
[2016-10-15] MEDS: TAMSULOSIN 0.4 MG CAP.ER.24H. PO SCH (09:57)
[2016-10-15] MEDS: busPIRone 5 MG TABLET. PO SCH ×2 (09:57→20:06)
[2016-10-15] MEDS: FINASTERIDE 5 MG TABLET PO SCH (09:57)
[2016-10-15] MEDS: DIVALPROEX SODIUM 250 MG TABLET.DR. PO SCH ×2 (09:57→20:06)
[2016-10-15] MEDS: ALLOPURINOL 100 MG TABLET. PO SCH ×2 (09:57→20:06)
[2016-10-15] MEDS: CARVEDILOL 6.25 MG TABLET PO SCH ×2 (09:57→17:17)
[2016-10-15] MEDS: POTASSIUM CHLORIDE 20 MEQ TABLET.ER. PO SCH (10:00)
[2016-10-15] MEDS: QUEtiapine 25 MG TABLET. PO SCH ×3 (10:01→20:07)
[2016-10-15] MEDS: FUROSEMIDE 40 MG TABLET PO SCH (10:01)
[2016-10-15] MEDS: clonazePAM 1 MG TABLET PO SCH (10:01)
[2016-10-15] MEDS: OMEGA-3 FATTY ACIDS/FISH OIL 1,000 MG CAPSULE. PO SCH (11:30)
[2016-10-15 11:36] LABS: VAL ACID 51 mcg/mL (50-100)
--- NOTE | 2016-10-15 13:30 | NUR ---
THERAPEUTIC RECREATION GROUP NOTE TITLE :[place] [employer] ACTIVITY : Arts and Crafts GOAL : Increase socialization, fine motor skills, creativity DURATION : 90 Minutes RESPONSE : Full participation. Pt. needed no prompting to stay on task. He complimented the programs that were offered here. He painted neatly with great attention to detail. He was pleasant to have in group.
--- NOTE | 2016-10-15 14:00 | NUR ---
Behavior Intervention Response and Plan: BIRP Note: Behavior: Assumed Care of patient, patient located in Day Room at shift change. Patient exhibited the following behavior Interactive, cooperative, Compliant. Brief assessment on rounds of vital signs, medication needs, lab studies, and pain. Treatment plan problems . Intervention: Patient assessed and the following interventions initiated safety checks 15 Minute Checks Call juárez in reach , Medications , Call juárez in reach. Response: After interactions and interventions patient responded in the following manner, Interactive, Cooperative ,Compliant. Continue to assess behaviors and condition will continue to monitor throughout the shift as needed. 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 Continue to assess patient for changes in above assessment. Monitor for medication needs, pain, and safety concerns. Hourly rounding performed to ensure safe environment.
[2016-10-15 15:43] VITALS: BP 122/78
--- NOTE | 2016-10-15 15:59 | NUR ---
REX contacted Pt's dtr, Wendi as she was not available during Treatment Team this AM. REX updated dtr. on Pt's behaviors exhibited yesterday am w/Nursing. REX explained some medication changes and projected dc date set for early next week.
[2016-10-15] MEDS: ATORVASTATIN CALCIUM 10 MG TABLET. PO SCH (20:05)
[2016-10-15] MEDS: DONEPEZIL HCL 5 MG TABLET. PO SCH (20:06)
[2016-10-15] MEDS: MELATONIN 3 MG TABLET PO SCH (20:06)
[2016-10-15] MEDS: clonazePAM 0.5 MG TABLET PO SCH (20:08)
--- NOTE | 2016-10-15 20:26 | PDOC ---
Exam Stanford Demential Exam: Stanford Note: Please also refer to the separate dictated note~for this date of service dictated separately.~Patient seen individually. Discussed the patient with Nursing staff reviewed the chart.~Reviewed interim history and current functioning. Reviewed vital signs,~Labs/ Radiology~and current medications noted below. Continue current treatment with the changes noted in the dictated addendum note Assessment: Vital Signs: Vital Signs Date Time Temp Pulse Resp B/P (MAP) Pulse Ox O2 Delivery O2 Flow Rate FiO2 10/15/16 17:17 62 132/68 10/15/16 15:43 97.7 18 95 10/15/16 05:59 Room Air I&O Intake and Output 10/15/16 07:00 Intake Total 1440 ml Balance 1440 ml Intake Oral 1440 ml Labs: Laboratory Tests Test 10/15/16 06:02 White Blood Count 4.7 x10^3/uL (4.0-11.0) Red Blood Count 4.60 x10^6/uL (4.30-5.70) Hemoglobin 13.4 g/dL (13.0-17.5) Hematocrit 40.5 % (39.0-53.0) Mean Corpuscular Volume 88 fL (79-100) Mean Corpuscular Hemoglobin 29 pg (25-35) Mean Corpuscular Hemoglobin Concent 33 g/dL (31-37) Red Cell Distribution Width 15.3 % (11.5-14.5) H Platelet Count 219 x10^3/uL (140-400) Neutrophils (%) (Auto) 44 % (31-73) Lymphocytes (%) (Auto) 34 % (24-48) Monocytes (%) (Auto) 14 % (0-9) H Eosinophils (%) (Auto) 7 % (0-3) H Basophils (%) (Auto) 1 % (0-3) Neutrophils # (Auto) 2.1 x10^3uL (1.8-7.7) Lymphocytes # (Auto) 1.6 x10^3/uL (1.0-4.8) Monocytes # (Auto) 0.6 x10^3/uL (0.0-1.1) Eosinophils # (Auto) 0.3 x10^3/uL (0.0-0.7) Basophils # (Auto) 0.0 x10^3/uL (0.0-0.2) Erythrocyte Sedimentation Rate 3 (0-15) Sodium Level 143 mmol/L (136-145) Potassium Level 3.9 mmol/L (3.5-5.1) Chloride Level 104 mmol/L (98-107) Carbon Dioxide Level 33 mmol/L (21-32) H Anion Gap 6 (6-14) Blood Urea Nitrogen 25 mg/dL (8-26) Creatinine 1.4 mg/dL (0.7-1.3) H Estimated GFR (Cockcroft-Gault) 50.2 BUN/Creatinine Ratio 18 (6-20) Glucose Level 83 mg/dL (70-99) Calcium Level 8.5 mg/dL (8.5-10.1) Total Bilirubin 0.4 mg/dL (0.2-1.0) Aspartate Amino Transferase (AST) 22 U/L (15-37) Alanine Aminotransferase (ALT) 16 U/L (16-63) Alkaline Phosphatase 65 U/L (46-116) C-Reactive Protein 5.1 mg/L (0-3.3) H Total Protein 6.6 g/dL (6.4-8.2) Albumin 3.1 g/dL (3.4-5.0) L Albumin/Globulin Ratio 0.9 (1.0-1.7) L Valproic Acid Level 51 mcg/mL (50-100) Valproic Acid Last Dose Date 10/14/2016 Valproic Acid Last Dose Time 2100 Current Medications: Meds: Current Medications Clonazepam (KlonoPIN) 1 mg BID PO Last administered on 10/14/16 08:58; Start 10/08/16 at 21:00; Stop 10/14/16 at 19:00; Status DC Donepezil HCl (Aricept) 5 mg QHS PO Last administered on 10/15/16 20:06; Start 10/08/16 at 21:00 Lorazepam (Ativan) 0.5 mg PRN Q6HRS PRN PO ANXIETY / AGITATION; Start 10/08/16 at 19:45 Citalopram Hydrobromide (CeleXA) 40 mg DAILY PO Last administered on 10/09/16 08:05; Start 10/09/16 at 09:00; Stop 10/09/16 at 18:44; Status DC Divalproex Sodium (Depakote) 500 mg BID PO Last administered on 10/15/16 20:06 ; Start 10/08/16 at 21:00 Melatonin 3 mg QHS PO Last administered on 10/15/16 20:06; Start 10/08/16 at 21:00 Acetaminophen (Tylenol) 650 mg PRN Q6HRS PRN PO PAIN / TEMP Last administered on 10/14/16 12:36; Start 10/08/16 at 20:00 Allopurinol (Zyloprim) 100 mg BID PO Last administered on 10/15/16 20:06; Start 10/08/16 at 21:00 Aspirin (Roberta Aspirin) 325 mg DAILY PO Last administered on 10/15/16 09:56; Start 10/09/16 at 09:00 Atorvastatin Calcium (Lipitor) 10 mg QHS PO Last administered on 10/15/16 20: 05; Start 10/08/16 at 21:00 Carvedilol (Coreg) 12.5 mg BIDWMEALS PO Last administered on 10/14/16 08:53; Start 10/09/16 at 08:00; Stop 10/14/16 at 13:58; Status DC Diclofenac Sodium (Voltaren) 1 diana PRN Q8HRS PRN TP PAIN; Start 10/08/16 at 20: 00 Docusate Sodium (Colace) 100 mg BID PO Last administered on 10/15/16 20:06; Start 10/08/16 at 21:00 Famotidine (Pepcid) 20 mg BIDBFRMEAL PO Last administered on 10/15/16 17:16; Start 10/09/16 at 07:30 Finasteride (Proscar) 5 mg DAILY PO Last administered on 10/15/16 09:57; Start 10/09/16 at 09:00 Fluticasone Propionate (Flonase) 2 spray DAILY NS Last administered on 09:00; Start 10/09/16 at 09:00 Furosemide (Lasix) 30 mg DAILY PO Last administered on 10/14/16 09:00; Start 10/09/16 at 09:00; Stop 10/14/16 at 13:59; Status DC Hydrocortisone (Proctosol-Hc) 1 diana PRN BID PRN RC Hemorrhoids Last administered on 10/14/16 21:34; Start 10/08/16 at 20:00 Polyethylene Glycol (miraLAX) 17 gm PRN DAILY PRN PO CONSTIPATION; Start at 09:00 Sodium Chloride (Saline Mist Nasal) 2 diana PRN BID PRN NS NASAL CONGESTION; Start 10/08/16 at 20:00 Tamsulosin HCl (Flomax) 0.4 mg DAILY PO Last administered on 10/15/16 09:57; Start 10/09/16 at 09:00 Fenofibrate (Tricor) 145 mg DAILY PO Last administered on 10/15/16 09:56; Start 10/09/16 at 09:00 Guaifenesin (MUCINEX ER with DM) 1 tab PRN Q4HRS PRN PO COUGH; Start 10/08/16 at 21:00 Lisinopril (Prinivil) 40 mg DAILY PO Last administered on 10/15/16 09:56; Start 10/09/16 at 09:00 Throat Lozenges (Cepacol Sore Throat Lozenge) 1 christianne PRN Q2HR PRN PO COUGH; Start 10/08/16 at 20:45 Escitalopram Oxalate (Lexapro) 10 mg DAILY PO Last administered on 10/15/16 09 :56; Start 10/10/16 at 09:00 Quetiapine Fumarate (SEROquel) 12.5 mg [id number] PO Last administered on 10/15/16 13:39; Start 10/10/16 at 09:00 Fish Oil (Fish Oil) 1,000 mg DAILYBFRLUN PO Last administered on 10/15/16 11: 30; Start 10/10/16 at 11:30 Vitamin D (Vitamin D3) 50,000 unit WEEKLY PO ; Start 10/17/16 at 09:00 Cyanocobalamin (Vitamin B-12) 1,000 mcg [id number] IM Last administered on 13:07; Start 10/10/16 at 11:30 Vitamin D (Vitamin D3) 2,000 unit DAILY PO Last administered on 10/11/16 08:00 ; Start 10/11/16 at 09:00; Stop 10/11/16 at 11:35; Status DC Quetiapine Fumarate (SEROquel) 12.5 mg HS PO Last administered on 10/15/16 20: 07; Start 10/12/16 at 21:00 Carvedilol (Coreg) 6.25 mg BIDWMEALS PO Last administered on 10/15/16 17:17; Start 10/14/16 at 17:00 Furosemide (Lasix) 40 mg DAILY PO Last administered on 10/15/16 10:01; Start 10/15/16 at 09:00 Potassium Chloride (Klor-Con) 20 meq DAILYWBKFT PO Last administered on 10:00; Start 10/15/16 at 08:00 Buspirone HCl (Buspar) 5 mg BID PO Last administered on 10/15/16 20:06; Start 10/14/16 at 21:00 Clonazepam (KlonoPIN) 1 mg DAILY PO Last administered on 10/15/16 10:01; Start 10/15/16 at 09:00; Stop 10/17/16 at 11:30 Clonazepam (KlonoPIN) 0.5 mg HS PO Last administered on 10/15/16 20:08; Start 10/14/16 at 21:00; Stop 10/16/16 at 23:00 Clonazepam (KlonoPIN) 0.5 mg BID PO ; Start 10/18/16 at 09:00 Active Scripts Active Reported Voltaren (Diclofenac Sodium) 100 Gm Gel..gram. 1 Diana TP PRN Q8HRS PRN Tylenol (Acetaminophen) 325 Mg Tablet 650 Mg PO PRN Q6HRS PRN Tamsulosin Hcl 0.4 Mg Cap.er.24h 0.4 Mg PO DAILY Saline Nasal [place] (Sodium Chloride) 30 Ml [place] 2 Sprays NS PRN BID PRN Miralax (Polyethylene Glycol 3350) 119 Gm Powder 17 Gm PO PRN DAILY PRN Melatonin 3 Mg Tablet 3 Mg PO QHS Lorazepam 0.5 Mg Tablet 0.5 Mg PO PRN Q6HRS PRN Lisinopril 40 Mg Tablet 40 Mg PO DAILY Lasix (Furosemide) 20 Mg Tablet 30 Mg PO DAILY Guaifenesin Dm 400-20 Mg Tab (Guaifenesin/Dextromethorphan) 1 Each Tablet 1 Tab PO PRN Q4HRS PRN Fluticasone Propionate Nasal [place] (Fluticasone Propionate) 16 Gm [place].susp 2 [place] NS DAILY Finasteride 5 Mg Tablet 5 Mg PO DAILY Fenofibrate 160 Mg Tablet 160 Mg PO DAILY Famotidine 20 Mg Tablet 20 Mg PO BIDBFRMEAL Depakote (Divalproex Sodium) 500 Mg Tablet.dr 500 Mg PO BID Cough Drops (Menthol/Herbal Drugs) 1 Each Lozenge 1 Christianne MM PRN Q2HR PRN Colace (Docusate Sodium) 100 Mg Capsule 100 Mg PO BID Clonazepam 1 Mg Tablet 1 Mg PO BID Celexa (Citalopram Hydrobromide) 40 Mg Tablet 40 Mg PO DAILY Carvedilol 12.5 Mg Tablet 12.5 Mg PO BIDWMEALS Atorvastatin Calcium 10 Mg Tablet 10 Mg PO QHS Aspirin 325 Mg Tablet 325 Mg PO DAILY Aricept (Donepezil Hcl) 5 Mg Tablet 5 Mg PO QHS Anusol-Hc (Hydrocortisone) 30 Gm Cream..g. 1 Diana RC PRN BID PRN Allopurinol 100 Mg Tablet 100 Mg PO BID ELKIN MALDONADO MD October 15, 2016 20:26
--- NOTE | 2016-10-15 22:26 | NUR ---
Behavior Intervention Response and Plan: BIRP Note: Behavior: Assumed Care of patient, patient located in Day Room at shift change. Patient exhibited the following behavior Interactive, Irritable, Defensive. Brief assessment on rounds of vital signs, medication needs, lab studies, and pain. Treatment plan problems 1 and 2. Intervention: Patient assessed and the following interventions initiated safety checks 15 Minute Checks Cognitive Assessment , Head to toe Assessment , Medications. Response: After interactions and interventions patient responded in the following manner, Calm , Compliant ,Cooperative. Continue to assess behaviors and condition will continue to monitor throughout the shift as needed. 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 Continue to assess patient for changes in above assessment. Monitor for medication needs, pain, and safety concerns. Hourly rounding performed to ensure safe environment.
[2016-10-16 06:14] VITALS: BP 122/67
[2016-10-16] MEDS: ASPIRIN 325 MG TABLET PO SCH (07:45)
[2016-10-16] MEDS: CARVEDILOL 6.25 MG TABLET PO SCH ×2 (07:45→16:44)
[2016-10-16] MEDS: FINASTERIDE 5 MG TABLET PO SCH (07:45)
[2016-10-16] MEDS: DOCUSATE SODIUM 100 MG CAPSULE PO SCH ×2 (07:46→19:52)
[2016-10-16] MEDS: ESCITALOPRAM 10 MG TABLET. PO SCH (07:46)
[2016-10-16] MEDS: TAMSULOSIN 0.4 MG CAP.ER.24H. PO SCH (07:46)
[2016-10-16] MEDS: POTASSIUM CHLORIDE 20 MEQ TABLET.ER. PO SCH (07:46)
[2016-10-16] MEDS: FAMOTIDINE 20 MG TABLET PO SCH ×2 (07:46→16:44)
[2016-10-16] MEDS: FENOFIBRATE NANOCRYSTALLIZED 145 MG TABLET PO SCH (07:46)
[2016-10-16] MEDS: busPIRone 5 MG TABLET. PO SCH ×2 (07:46→19:53)
[2016-10-16] MEDS: QUEtiapine 25 MG TABLET. PO SCH ×2 (07:46→11:43)
[2016-10-16] MEDS: FUROSEMIDE 40 MG TABLET PO SCH (07:46)
[2016-10-16] MEDS: ALLOPURINOL 100 MG TABLET. PO SCH ×2 (07:46→19:52)
[2016-10-16] MEDS: DIVALPROEX SODIUM 250 MG TABLET.DR. PO SCH ×2 (07:46→19:52)
[2016-10-16] MEDS: LISINOPRIL 20 MG TABLET PO SCH (07:47)
[2016-10-16] MEDS: FLUTICASONE 50MCG/NASAL SPRAY 16GM BOTTLE. NS SCH (07:49)
[2016-10-16] MEDS: clonazePAM 1 MG TABLET PO SCH (07:49)
--- NOTE | 2016-10-16 09:17 | NUR ---
Behavior Intervention Response and Plan: BIRP Note: Behavior: Assumed Care of patient, patient located in Dining Room at shift change. Patient exhibited the following behavior Compliant, Social, hyperverbal. Brief assessment on rounds of vital signs, medication needs, lab studies, and pain. Treatment plan problems . Intervention: Patient assessed and the following interventions initiated safety checks 15 Minute Checks Cognitive Assessment , Head to toe Assessment , Medications. Response: After interactions and interventions patient responded in the following manner, Compliant , Attention Seeking. Continue to assess behaviors and condition will continue to monitor throughout the shift as needed. 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 Continue to assess patient for changes in above assessment. Monitor for medication needs, pain, and safety concerns. Hourly rounding performed to ensure safe environment.
[2016-10-16] MEDS: OMEGA-3 FATTY ACIDS/FISH OIL 1,000 MG CAPSULE. PO SCH (11:43)
--- NOTE | 2016-10-16 14:00 | NUR ---
THERAPEUTIC RECREATION GROUP NOTE TITLE :Cookie Decorating: [facility] ACTIVITY : Activities and Games GOAL : Facilitate sense of belonging and well-being, elevate mood, increase socialization and social skills. Incorporate traditions. DURATION : 45 minutes RESPONSE : Full participation. Pt. very particular and concentrated on decorating his cookies. 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 He engaged in conversations through the session.
--- NOTE | 2016-10-16 15:09 | NUR ---
pt up adl with walker. in pleasant spirits. compliant with meds and cares.
[2016-10-16 15:53] VITALS: BP 145/79
--- NOTE | 2016-10-16 15:55 | NUR ---
[facility] faxed updated clinical notes to [facility], requesting transport time for dc on Wednesday. Facility called SW and asked for Wednesday as their scheduling is not available on Wednesday. Also reported Pt. was dc on Seroquel as it was contributing to swelling in Pt's legs. REX passed along this information to nursing to report to in report. REX spoke w/Pt's dtr regarding dc plans for next week. Wendi is concerned this facility did not give Pt. a Dementia diagnosis as she states that was given to him 2 years ago. REX stated there is not a Psychologist on staff to provide the type of testing required for this facility to determine the diagnosis and the information was not provided by current facility as an existing diagnosis.
[2016-10-16] MEDS: risperiDONE 0.25 MG TABLET. PO SCH (19:52)
[2016-10-16] MEDS: MELATONIN 3 MG TABLET PO SCH (19:52)
[2016-10-16] MEDS: ATORVASTATIN CALCIUM 10 MG TABLET. PO SCH (19:52)
[2016-10-16] MEDS: DONEPEZIL HCL 5 MG TABLET. PO SCH (19:53)
[2016-10-16] MEDS: clonazePAM 0.5 MG TABLET PO SCH (19:53)
--- NOTE | 2016-10-16 21:19 | PDOC ---
Exam [facility] Demential Exam: [facility] Note: Please also refer to the separate dictated note~for this date of service dictated separately.~Patient seen individually. Discussed the patient with Nursing staff reviewed the chart.~Reviewed interim history and current functioning. Reviewed vital signs,~Labs/ Radiology~and current medications noted below. Continue current treatment with the changes noted in the dictated addendum note Assessment: Vital Signs: Vital Signs Date Time Temp Pulse Resp B/P (MAP) Pulse Ox O2 Delivery O2 Flow Rate FiO2 10/16/16 16:44 68 145/79 10/16/16 15:53 97.8 19 95 10/15/16 05:59 Room Air I&O Intake and Output 10/16/16 07:00 Intake Total 2160 ml Balance 2160 ml Intake Oral 2160 ml Current Medications: Meds: Current Medications Clonazepam (KlonoPIN) 1 mg BID PO Last administered on 10/14/16 08:58; Start 10/08/16 at 21:00; Stop 10/14/16 at 19:00; Status DC Donepezil HCl (Aricept) 5 mg QHS PO Last administered on 10/16/16 19:53; Start 10/08/16 at 21:00 Lorazepam (Ativan) 0.5 mg PRN Q6HRS PRN PO ANXIETY / AGITATION; Start 10/08/16 at 19:45 Citalopram Hydrobromide (CeleXA) 40 mg DAILY PO Last administered on 10/09/16 08:05; Start 10/09/16 at 09:00; Stop 10/09/16 at 18:44; Status DC Divalproex Sodium (Depakote) 500 mg BID PO Last administered on 10/16/16 19:52 ; Start 10/08/16 at 21:00 Melatonin 3 mg QHS PO Last administered on 10/16/16 19:52; Start 10/08/16 at 21:00 Acetaminophen (Tylenol) 650 mg PRN Q6HRS PRN PO PAIN / TEMP Last administered on 10/14/16 12:36; Start 10/08/16 at 20:00 Allopurinol (Zyloprim) 100 mg BID PO Last administered on 10/16/16 19:52; Start 10/08/16 at 21:00 Aspirin (Roberta Aspirin) 325 mg DAILY PO Last administered on 10/16/16 07:45; Start 10/09/16 at 09:00 Atorvastatin Calcium (Lipitor) 10 mg QHS PO Last administered on 10/16/16 19: 52; Start 10/08/16 at 21:00 Carvedilol (Coreg) 12.5 mg BIDWMEALS PO Last administered on 10/14/16 08:53; Start 10/09/16 at 08:00; Stop 10/14/16 at 13:58; Status DC Diclofenac Sodium (Voltaren) 1 diana PRN Q8HRS PRN TP PAIN; Start 10/08/16 at 20: 00 Docusate Sodium (Colace) 100 mg BID PO Last administered on 10/16/16 19:52; Start 10/08/16 at 21:00 Famotidine (Pepcid) 20 mg BIDBFRMEAL PO Last administered on 10/16/16 16:44; Start 10/09/16 at 07:30 Finasteride (Proscar) 5 mg DAILY PO Last administered on 10/16/16 07:45; Start 10/09/16 at 09:00 Fluticasone Propionate (Flonase) 2 spray DAILY NS Last administered on 07:49; Start 10/09/16 at 09:00 Furosemide (Lasix) 30 mg DAILY PO Last administered on 10/14/16 09:00; Start 10/09/16 at 09:00; Stop 10/14/16 at 13:59; Status DC Hydrocortisone (Proctosol-Hc) 1 diana PRN BID PRN RC Hemorrhoids Last administered on 10/14/16 21:34; Start 10/08/16 at 20:00 Polyethylene Glycol (miraLAX) 17 gm PRN DAILY PRN PO CONSTIPATION; Start at 09:00 Sodium Chloride (Saline Mist Nasal) 2 diana PRN BID PRN NS NASAL CONGESTION; Start 10/08/16 at 20:00 Tamsulosin HCl (Flomax) 0.4 mg DAILY PO Last administered on 10/16/16 07:46; Start 10/09/16 at 09:00 Fenofibrate (Tricor) 145 mg DAILY PO Last administered on 10/16/16 07:46; Start 10/09/16 at 09:00 Guaifenesin (MUCINEX ER with DM) 1 tab PRN Q4HRS PRN PO COUGH; Start 10/08/16 at 21:00 Lisinopril (Prinivil) 40 mg DAILY PO Last administered on 10/16/16 07:47; Start 10/09/16 at 09:00 Throat Lozenges (Cepacol Sore Throat Lozenge) 1 christianne PRN Q2HR PRN PO COUGH; Start 10/08/16 at 20:45 Escitalopram Oxalate (Lexapro) 10 mg DAILY PO Last administered on 10/16/16 07 :46; Start 10/10/16 at 09:00 Quetiapine Fumarate (SEROquel) 12.5 mg [id number] PO Last administered on 10/16/16 11:43; Start 10/10/16 at 09:00; Stop 10/16/16 at 19:11; Status DC Fish Oil (Fish Oil) 1,000 mg DAILYBFRLUN PO Last administered on 10/16/16 11: 43; Start 10/10/16 at 11:30 Vitamin D (Vitamin D3) 50,000 unit WEEKLY PO ; Start 10/17/16 at 09:00 Cyanocobalamin (Vitamin B-12) 1,000 mcg [id number] IM Last administered on 13:07; Start 10/10/16 at 11:30 Vitamin D (Vitamin D3) 2,000 unit DAILY PO Last administered on 10/11/16 08:00 ; Start 10/11/16 at 09:00; Stop 10/11/16 at 11:35; Status DC Quetiapine Fumarate (SEROquel) 12.5 mg HS PO Last administered on 10/15/16 20: 07; Start 10/12/16 at 21:00; Stop 10/16/16 at 19:11; Status DC Carvedilol (Coreg) 6.25 mg BIDWMEALS PO Last administered on 10/16/16 16:44; Start 10/14/16 at 17:00 Furosemide (Lasix) 40 mg DAILY PO Last administered on 10/16/16 07:46; Start 10/15/16 at 09:00 Potassium Chloride (Klor-Con) 20 meq DAILYWBKFT PO Last administered on 07:46; Start 10/15/16 at 08:00 Buspirone HCl (Buspar) 5 mg BID PO Last administered on 10/16/16 19:53; Start 10/14/16 at 21:00 Clonazepam (KlonoPIN) 1 mg DAILY PO Last administered on 10/16/16 07:49; Start 10/15/16 at 09:00; Stop 10/17/16 at 11:30 Clonazepam (KlonoPIN) 0.5 mg HS PO Last administered on 10/16/16 19:53; Start 10/14/16 at 21:00; Stop 10/16/16 at 23:00 Clonazepam (KlonoPIN) 0.5 mg BID PO ; Start 10/18/16 at 09:00 Risperidone (RisperDAL) 0.25 mg BID PO Last administered on 10/16/16 19:52; Start 10/16/16 at 21:00 Active Scripts Active Reported Voltaren (Diclofenac Sodium) 100 Gm Gel..gram. 1 Diana TP PRN Q8HRS PRN Tylenol (Acetaminophen) 325 Mg Tablet 650 Mg PO PRN Q6HRS PRN Tamsulosin Hcl 0.4 Mg Cap.er.24h 0.4 Mg PO DAILY Saline Nasal [place] (Sodium Chloride) 30 Ml [place] 2 Sprays NS PRN BID PRN Miralax (Polyethylene Glycol 3350) 119 Gm Powder 17 Gm PO PRN DAILY PRN Melatonin 3 Mg Tablet 3 Mg PO QHS Lorazepam 0.5 Mg Tablet 0.5 Mg PO PRN Q6HRS PRN Lisinopril 40 Mg Tablet 40 Mg PO DAILY Lasix (Furosemide) 20 Mg Tablet 30 Mg PO DAILY Guaifenesin Dm 400-20 Mg Tab (Guaifenesin/Dextromethorphan) 1 Each Tablet 1 Tab PO PRN Q4HRS PRN Fluticasone Propionate Nasal [place] (Fluticasone Propionate) 16 Gm [place].susp 2 [place] NS DAILY Finasteride 5 Mg Tablet 5 Mg PO DAILY Fenofibrate 160 Mg Tablet 160 Mg PO DAILY Famotidine 20 Mg Tablet 20 Mg PO BIDBFRMEAL Depakote (Divalproex Sodium) 500 Mg Tablet.dr 500 Mg PO BID Cough Drops (Menthol/Herbal Drugs) 1 Each Lozenge 1 Christianne MM PRN Q2HR PRN Colace (Docusate Sodium) 100 Mg Capsule 100 Mg PO BID Clonazepam 1 Mg Tablet 1 Mg PO BID Celexa (Citalopram Hydrobromide) 40 Mg Tablet 40 Mg PO DAILY Carvedilol 12.5 Mg Tablet 12.5 Mg PO BIDWMEALS Atorvastatin Calcium 10 Mg Tablet 10 Mg PO QHS Aspirin 325 Mg Tablet 325 Mg PO DAILY Aricept (Donepezil Hcl) 5 Mg Tablet 5 Mg PO QHS Anusol-Hc (Hydrocortisone) 30 Gm Cream..g. 1 Diana RC PRN BID PRN Allopurinol 100 Mg Tablet 100 Mg PO BID ELKIN MALDONADO MD October 16, 2016 21:19
--- NOTE | 2016-10-16 22:18 | NUR ---
Behavior Intervention Response and Plan: BIRP Note: Behavior: Assumed Care of patient, patient located in Day Room at shift change. Patient exhibited the following behavior Interactive, Calm, Social. Brief assessment on rounds of vital signs, medication needs, lab studies, and pain. Treatment plan problems 1 and 2. Intervention: Patient assessed and the following interventions initiated safety checks 15 Minute Checks Cognitive Assessment , Head to toe Assessment , Medications. Response: After interactions and interventions patient responded in the following manner, Calm , Compliant ,Cooperative. Continue to assess behaviors and condition will continue to monitor throughout the shift as needed. 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 Continue to assess patient for changes in above assessment. Monitor for medication needs, pain, and safety concerns. Hourly rounding performed to ensure safe environment.
[2016-10-17 05:58] VITALS: BP 114/65
[2016-10-17] MEDS: FINASTERIDE 5 MG TABLET PO SCH (07:25)
[2016-10-17] MEDS: FUROSEMIDE 40 MG TABLET PO SCH (07:25)
[2016-10-17] MEDS: DOCUSATE SODIUM 100 MG CAPSULE PO SCH ×2 (07:25→20:07)
[2016-10-17] MEDS: risperiDONE 0.25 MG TABLET. PO SCH ×2 (07:25→20:07)
[2016-10-17] MEDS: CARVEDILOL 6.25 MG TABLET PO SCH ×2 (07:26→17:40)
[2016-10-17] MEDS: POTASSIUM CHLORIDE 20 MEQ TABLET.ER. PO SCH (07:26)
[2016-10-17] MEDS: LISINOPRIL 20 MG TABLET PO SCH (07:26)
[2016-10-17] MEDS: FENOFIBRATE NANOCRYSTALLIZED 145 MG TABLET PO SCH (07:26)
[2016-10-17] MEDS: ESCITALOPRAM 10 MG TABLET. PO SCH (07:26)
[2016-10-17] MEDS: busPIRone 5 MG TABLET. PO SCH ×2 (07:26→20:07)
[2016-10-17] MEDS: ASPIRIN 325 MG TABLET PO SCH (07:26)
[2016-10-17] MEDS: ALLOPURINOL 100 MG TABLET. PO SCH ×2 (07:27→20:07)
[2016-10-17] MEDS: FAMOTIDINE 20 MG TABLET PO SCH ×2 (07:27→17:39)
[2016-10-17] MEDS: FLUTICASONE 50MCG/NASAL SPRAY 16GM BOTTLE. NS SCH (07:27)
[2016-10-17] MEDS: DIVALPROEX SODIUM 250 MG TABLET.DR. PO SCH ×2 (07:27→20:07)
[2016-10-17] MEDS: TAMSULOSIN 0.4 MG CAP.ER.24H. PO SCH (07:27)
[2016-10-17] MEDS: clonazePAM 1 MG TABLET PO SCH (07:29)
[2016-10-17] MEDS ORDERED: CHOLECALCIFEROL (VITAMIN D3) 50,000 UNIT CAPSULE PO SCH (09:00)
--- NOTE | 2016-10-17 09:35 | PN ---
DATE: 10/14/2016 PSYCHIATRIC PROGRESS NOTE This is a late entry of 10/14/2016 covers elements not covered in my initial note. The patient has been agitated with nursing staff, rest at times, restless, anxious, but minimizes this. REVIEW OF SYSTEMS: No CV, , pulmonary, eye, ENT system symptoms on review. Reliability fair. MENTAL STATUS EXAM: Reasonably oriented. Speech is coherent at times with little pressure. Abstraction fair, computation impaired, language function intact. Mood and affect showing improvement. LABORATORY DATA: Reviewed. IMPRESSION: Bipolar 1 disorder, unspecified; major depressive disorder; anxiety disorder, unspecified; impulse control disorder, unspecified. PLAN: Continue current psychotropics mentioned in my initial note. Reduce the Klonopin from 1 mg b.i.d. to 1 mg in the morning, 0.5 in the evening x 3 days, then 0.5 b.i.d. thereafter. Start BuSpar 5 mg twice a day. Continue Seroquel 12.5 mg twice a day, Ativan p.r.n., Depakote DR 500 b.i.d., Aricept 5 mg a day. Valproic acid level therapeutic at 59. Adjust further as clinically indicated. ELKIN MALDONADO MD DR: JOSEPHINE/jersey JOB#: [id number] / [id number]
--- NOTE | 2016-10-17 09:36 | NUR ---
Behavior Intervention Response and Plan: BIRP Note: Behavior: Assumed Care of patient, patient located in Dining Room at shift change. Patient exhibited the following behavior Compliant, Social, hyperverbal. Brief assessment on rounds of vital signs, medication needs, lab studies, and pain. Treatment plan problems . Intervention: Patient assessed and the following interventions initiated safety checks 15 Minute Checks Cognitive Assessment , Head to toe Assessment , Medications. Response: After interactions and interventions patient responded in the following manner, Compliant , Attention Seeking. Continue to assess behaviors and condition will continue to monitor throughout the shift as needed. 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 Continue to assess patient for changes in above assessment. Monitor for medication needs, pain, and safety concerns. Hourly rounding performed to ensure safe environment.
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
[2016-10-17] MEDS: OMEGA-3 FATTY ACIDS/FISH OIL 1,000 MG CAPSULE. PO SCH (12:18)
[2016-10-17 15:52] VITALS: BP 135/91
--- NOTE | 2016-10-17 18:19 | NUR ---
pt up adl to meals. in pleasant spirits. tolerating Risperdal well.
[2016-10-17] MEDS: ATORVASTATIN CALCIUM 10 MG TABLET. PO SCH (20:07)
[2016-10-17] MEDS: MELATONIN 3 MG TABLET PO SCH (20:07)
[2016-10-17] MEDS: DONEPEZIL HCL 5 MG TABLET. PO SCH (20:07)
--- NOTE | 2016-10-17 22:44 | PDOC ---
Exam [facility] Demential Exam: [facility] Note: Please also refer to the separate dictated note~for this date of service dictated separately.~Patient seen individually. Discussed the patient with Nursing staff reviewed the chart.~Reviewed interim history and current functioning. Reviewed vital signs,~Labs/ Radiology~and current medications noted below. Continue current treatment with the changes noted in the dictated addendum note Assessment: Vital Signs: Vital Signs Date Time Temp Pulse Resp B/P (MAP) Pulse Ox O2 Delivery O2 Flow Rate FiO2 10/17/16 17:40 60 135/91 10/17/16 15:52 98.0 20 96 10/15/16 05:59 Room Air I&O Intake and Output 10/17/16 07:00 Intake Total 1320 ml Balance 1320 ml Intake Oral 1320 ml Current Medications: Meds: Current Medications Clonazepam (KlonoPIN) 1 mg BID PO Last administered on 10/14/16 08:58; Start 10/08/16 at 21:00; Stop 10/14/16 at 19:00; Status DC Donepezil HCl (Aricept) 5 mg QHS PO Last administered on 10/17/16 20:07; Start 10/08/16 at 21:00 Lorazepam (Ativan) 0.5 mg PRN Q6HRS PRN PO ANXIETY / AGITATION; Start 10/08/16 at 19:45 Citalopram Hydrobromide (CeleXA) 40 mg DAILY PO Last administered on 10/09/16 08:05; Start 10/09/16 at 09:00; Stop 10/09/16 at 18:44; Status DC Divalproex Sodium (Depakote) 500 mg BID PO Last administered on 10/17/16 20:07 ; Start 10/08/16 at 21:00 Melatonin 3 mg QHS PO Last administered on 10/17/16 20:07; Start 10/08/16 at 21:00 Acetaminophen (Tylenol) 650 mg PRN Q6HRS PRN PO PAIN / TEMP Last administered on 10/14/16 12:36; Start 10/08/16 at 20:00 Allopurinol (Zyloprim) 100 mg BID PO Last administered on 10/17/16 20:07; Start 10/08/16 at 21:00 Aspirin (Roberta Aspirin) 325 mg DAILY PO Last administered on 10/17/16 07:26; Start 10/09/16 at 09:00 Atorvastatin Calcium (Lipitor) 10 mg QHS PO Last administered on 10/17/16 20: 07; Start 10/08/16 at 21:00 Carvedilol (Coreg) 12.5 mg BIDWMEALS PO Last administered on 10/14/16 08:53; Start 10/09/16 at 08:00; Stop 10/14/16 at 13:58; Status DC Diclofenac Sodium (Voltaren) 1 diana PRN Q8HRS PRN TP PAIN; Start 10/08/16 at 20: 00 Docusate Sodium (Colace) 100 mg BID PO Last administered on 10/17/16 20:07; Start 10/08/16 at 21:00 Famotidine (Pepcid) 20 mg BIDBFRMEAL PO Last administered on 10/17/16 17:39; Start 10/09/16 at 07:30 Finasteride (Proscar) 5 mg DAILY PO Last administered on 10/17/16 07:25; Start 10/09/16 at 09:00 Fluticasone Propionate (Flonase) 2 spray DAILY NS Last administered on 07:27; Start 10/09/16 at 09:00 Furosemide (Lasix) 30 mg DAILY PO Last administered on 10/14/16 09:00; Start 10/09/16 at 09:00; Stop 10/14/16 at 13:59; Status DC Hydrocortisone (Proctosol-Hc) 1 diana PRN BID PRN RC Hemorrhoids Last administered on 10/14/16 21:34; Start 10/08/16 at 20:00 Polyethylene Glycol (miraLAX) 17 gm PRN DAILY PRN PO CONSTIPATION; Start at 09:00 Sodium Chloride (Saline Mist Nasal) 2 diana PRN BID PRN NS NASAL CONGESTION; Start 10/08/16 at 20:00 Tamsulosin HCl (Flomax) 0.4 mg DAILY PO Last administered on 10/17/16 07:27; Start 10/09/16 at 09:00 Fenofibrate (Tricor) 145 mg DAILY PO Last administered on 10/17/16 07:26; Start 10/09/16 at 09:00 Guaifenesin (MUCINEX ER with DM) 1 tab PRN Q4HRS PRN PO COUGH; Start 10/08/16 at 21:00 Lisinopril (Prinivil) 40 mg DAILY PO Last administered on 10/17/16 07:26; Start 10/09/16 at 09:00 Throat Lozenges (Cepacol Sore Throat Lozenge) 1 christianne PRN Q2HR PRN PO COUGH; Start 10/08/16 at 20:45 Escitalopram Oxalate (Lexapro) 10 mg DAILY PO Last administered on 10/17/16 07 :26; Start 10/10/16 at 09:00 Quetiapine Fumarate (SEROquel) 12.5 mg BID92 PO Last administered on 10/16/16 11:43; Start 10/10/16 at 09:00; Stop 10/16/16 at 19:11; Status DC Fish Oil (Fish Oil) 1,000 mg DAILYBFRLUN PO Last administered on 10/17/16 12: 18; Start 10/10/16 at 11:30 Vitamin D (Vitamin D3) 50,000 unit WEEKLY PO Last administered on 10/17/16 07: 41; Start 10/17/16 at 09:00 Cyanocobalamin (Vitamin B-12) 1,000 mcg [id number] IM Last administered on 13:07; Start 10/10/16 at 11:30 Vitamin D (Vitamin D3) 2,000 unit DAILY PO Last administered on 10/11/16 08:00 ; Start 10/11/16 at 09:00; Stop 10/11/16 at 11:35; Status DC Quetiapine Fumarate (SEROquel) 12.5 mg HS PO Last administered on 10/15/16 20: 07; Start 10/12/16 at 21:00; Stop 10/16/16 at 19:11; Status DC Carvedilol (Coreg) 6.25 mg BIDWMEALS PO Last administered on 10/17/16 17:40; Start 10/14/16 at 17:00 Furosemide (Lasix) 40 mg DAILY PO Last administered on 10/17/16 07:25; Start 10/15/16 at 09:00 Potassium Chloride (Klor-Con) 20 meq DAILYWBKFT PO Last administered on 07:26; Start 10/15/16 at 08:00 Buspirone HCl (Buspar) 5 mg BID PO Last administered on 10/17/16 20:07; Start 10/14/16 at 21:00 Clonazepam (KlonoPIN) 1 mg DAILY PO Last administered on 10/17/16 07:29; Start 10/15/16 at 09:00; Stop 10/17/16 at 11:30; Status DC Clonazepam (KlonoPIN) 0.5 mg HS PO Last administered on 10/16/16 19:53; Start 10/14/16 at 21:00; Stop 10/16/16 at 23:00; Status DC Clonazepam (KlonoPIN) 0.5 mg BID PO ; Start 10/18/16 at 09:00 Risperidone (RisperDAL) 0.25 mg BID PO Last administered on 10/17/16 20:07; Start 10/16/16 at 21:00 Active Scripts Active Reported Voltaren (Diclofenac Sodium) 100 Gm Gel..gram. 1 Diana TP PRN Q8HRS PRN Tylenol (Acetaminophen) 325 Mg Tablet 650 Mg PO PRN Q6HRS PRN Tamsulosin Hcl 0.4 Mg Cap.er.24h 0.4 Mg PO DAILY Saline Nasal [place] (Sodium Chloride) 30 Ml [place] 2 Sprays NS PRN BID PRN Miralax (Polyethylene Glycol 3350) 119 Gm Powder 17 Gm PO PRN DAILY PRN Melatonin 3 Mg Tablet 3 Mg PO QHS Lorazepam 0.5 Mg Tablet 0.5 Mg PO PRN Q6HRS PRN Lisinopril 40 Mg Tablet 40 Mg PO DAILY Lasix (Furosemide) 20 Mg Tablet 30 Mg PO DAILY Guaifenesin Dm 400-20 Mg Tab (Guaifenesin/Dextromethorphan) 1 Each Tablet 1 Tab PO PRN Q4HRS PRN Fluticasone Propionate Nasal [place] (Fluticasone Propionate) 16 Gm [place].susp 2 [place] NS DAILY Finasteride 5 Mg Tablet 5 Mg PO DAILY Fenofibrate 160 Mg Tablet 160 Mg PO DAILY Famotidine 20 Mg Tablet 20 Mg PO BIDBFRMEAL Depakote (Divalproex Sodium) 500 Mg Tablet.dr 500 Mg PO BID Cough Drops (Menthol/Herbal Drugs) 1 Each Lozenge 1 Christianne MM PRN Q2HR PRN Colace (Docusate Sodium) 100 Mg Capsule 100 Mg PO BID Clonazepam 1 Mg Tablet 1 Mg PO BID Celexa (Citalopram Hydrobromide) 40 Mg Tablet 40 Mg PO DAILY Carvedilol 12.5 Mg Tablet 12.5 Mg PO BIDWMEALS Atorvastatin Calcium 10 Mg Tablet 10 Mg PO QHS Aspirin 325 Mg Tablet 325 Mg PO DAILY Aricept (Donepezil Hcl) 5 Mg Tablet 5 Mg PO QHS Anusol-Hc (Hydrocortisone) 30 Gm Cream..g. 1 Diana RC PRN BID PRN Allopurinol 100 Mg Tablet 100 Mg PO BID Diagnosis: Problems: (1) Dementia (2) Impulse control disorder (3) Anxiety disorder (4) Major depressive disorder, recurrent episode ELKIN MALDONADO MD October 17, 2016 22:44
--- NOTE | 2016-10-17 23:52 | NUR ---
Behavior Intervention Response and Plan: BIRP Note: Behavior: Assumed Care of patient, patient located in Day Room at shift change. Patient exhibited the following behavior Calm, Social, Cooperative. Brief assessment on rounds of vital signs, medication needs, lab studies, and pain. Treatment plan problems 1 and 2. Intervention: Patient assessed and the following interventions initiated safety checks 15 Minute Checks Cognitive Assessment , Head to toe Assessment , Medications. Response: After interactions and interventions patient responded in the following manner, Calm , Compliant ,Cooperative. Continue to assess behaviors and condition will continue to monitor throughout the shift as needed. 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 Continue to assess patient for changes in above assessment. Monitor for medication needs, pain, and safety concerns. Hourly rounding performed to ensure safe environment.
[2016-10-18 05:56] VITALS: BP 117/60
[2016-10-18] MEDS: risperiDONE 0.25 MG TABLET. PO SCH ×2 (07:39→19:46)
[2016-10-18] MEDS: ESCITALOPRAM 10 MG TABLET. PO SCH (07:39)
[2016-10-18] MEDS: DOCUSATE SODIUM 100 MG CAPSULE PO SCH ×2 (07:39→19:45)
[2016-10-18] MEDS: CARVEDILOL 6.25 MG TABLET PO SCH ×2 (07:39→17:39)
[2016-10-18] MEDS: TAMSULOSIN 0.4 MG CAP.ER.24H. PO SCH (07:40)
[2016-10-18] MEDS: LISINOPRIL 20 MG TABLET PO SCH (07:40)
[2016-10-18] MEDS: busPIRone 5 MG TABLET. PO SCH ×2 (07:40→19:45)
[2016-10-18] MEDS: ALLOPURINOL 100 MG TABLET. PO SCH ×2 (07:40→19:46)
[2016-10-18] MEDS: DIVALPROEX SODIUM 250 MG TABLET.DR. PO SCH ×2 (07:40→19:45)
[2016-10-18] MEDS: POTASSIUM CHLORIDE 20 MEQ TABLET.ER. PO SCH (07:40)
[2016-10-18] MEDS: FAMOTIDINE 20 MG TABLET PO SCH ×2 (07:40→17:40)
[2016-10-18] MEDS: FINASTERIDE 5 MG TABLET PO SCH (07:41)
[2016-10-18] MEDS: FENOFIBRATE NANOCRYSTALLIZED 145 MG TABLET PO SCH (07:41)
[2016-10-18] MEDS: FLUTICASONE 50MCG/NASAL SPRAY 16GM BOTTLE. NS SCH (07:41)
[2016-10-18] MEDS: FUROSEMIDE 40 MG TABLET PO SCH (07:41)
[2016-10-18] MEDS: ASPIRIN 325 MG TABLET PO SCH (07:41)
[2016-10-18] MEDS: clonazePAM 0.5 MG TABLET PO SCH ×2 (07:43→19:45)
--- NOTE | 2016-10-18 09:52 | NUR ---
Behavior Intervention Response and Plan: BIRP Note: Behavior: Assumed Care of patient, patient located in Dining Room at shift change. Patient exhibited the following behavior Compliant, Social, hyperverbal. Brief assessment on rounds of vital signs, medication needs, lab studies, and pain. Treatment plan problems . Intervention: Patient assessed and the following interventions initiated safety checks 15 Minute Checks Cognitive Assessment , Head to toe Assessment , Medications. Response: After interactions and interventions patient responded in the following manner, Compliant , Attention Seeking. Continue to assess behaviors and condition will continue to monitor throughout the shift as needed. 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 Continue to assess patient for changes in above assessment. Monitor for medication needs, pain, and safety concerns. Hourly rounding performed to ensure safe environment.
[2016-10-18] MEDS: OMEGA-3 FATTY ACIDS/FISH OIL 1,000 MG CAPSULE. PO SCH (12:01)
[2016-10-18 16:14] VITALS: BP 154/81
--- NOTE | 2016-10-18 17:10 | NUR ---
pt up adl. in pleasant spirits. compliant with meds and cares.
[2016-10-18] MEDS: ATORVASTATIN CALCIUM 10 MG TABLET. PO SCH (19:45)
[2016-10-18] MEDS: MELATONIN 3 MG TABLET PO SCH (19:45)
[2016-10-18] MEDS: DONEPEZIL HCL 5 MG TABLET. PO SCH (19:45)
--- NOTE | 2016-10-18 21:03 | PDOC ---
Exam Stanford Demential Exam: Stanford Note: Please also refer to the separate dictated note~for this date of service dictated separately.~Patient seen individually. Discussed the patient with Nursing staff reviewed the chart.~Reviewed interim history and current functioning. Reviewed vital signs,~Labs/ Radiology~and current medications noted below. Continue current treatment with the changes noted in the dictated addendum note Assessment: Vital Signs: Vital Signs Date Time Temp Pulse Resp B/P (MAP) Pulse Ox O2 Delivery O2 Flow Rate FiO2 10/18/16 17:39 71 154/81 10/18/16 16:14 98.1 18 92 Room Air I&O Intake and Output 10/18/16 07:00 Intake Total 1200 ml Balance 1200 ml Intake Oral 1200 ml Current Medications: Meds: Current Medications Clonazepam (KlonoPIN) 1 mg BID PO Last administered on 10/14/16 08:58; Start 10/08/16 at 21:00; Stop 10/14/16 at 19:00; Status DC Donepezil HCl (Aricept) 5 mg QHS PO Last administered on 10/18/16 19:45; Start 10/08/16 at 21:00 Lorazepam (Ativan) 0.5 mg PRN Q6HRS PRN PO ANXIETY / AGITATION; Start 10/08/16 at 19:45 Citalopram Hydrobromide (CeleXA) 40 mg DAILY PO Last administered on 10/09/16 08:05; Start 10/09/16 at 09:00; Stop 10/09/16 at 18:44; Status DC Divalproex Sodium (Depakote) 500 mg BID PO Last administered on 10/18/16 19:45 ; Start 10/08/16 at 21:00 Melatonin 3 mg QHS PO Last administered on 10/18/16 19:45; Start 10/08/16 at 21:00 Acetaminophen (Tylenol) 650 mg PRN Q6HRS PRN PO PAIN / TEMP Last administered on 10/14/16 12:36; Start 10/08/16 at 20:00 Allopurinol (Zyloprim) 100 mg BID PO Last administered on 10/18/16 19:46; Start 10/08/16 at 21:00 Aspirin (Roberta Aspirin) 325 mg DAILY PO Last administered on 10/18/16 07:41; Start 10/09/16 at 09:00 Atorvastatin Calcium (Lipitor) 10 mg QHS PO Last administered on 10/18/16 19: 45; Start 10/08/16 at 21:00 Carvedilol (Coreg) 12.5 mg BIDWMEALS PO Last administered on 10/14/16 08:53; Start 10/09/16 at 08:00; Stop 10/14/16 at 13:58; Status DC Diclofenac Sodium (Voltaren) 1 diana PRN Q8HRS PRN TP PAIN; Start 10/08/16 at 20: 00 Docusate Sodium (Colace) 100 mg BID PO Last administered on 10/18/16 19:45; Start 10/08/16 at 21:00 Famotidine (Pepcid) 20 mg BIDBFRMEAL PO Last administered on 10/18/16 17:40; Start 10/09/16 at 07:30 Finasteride (Proscar) 5 mg DAILY PO Last administered on 10/18/16 07:41; Start 10/09/16 at 09:00 Fluticasone Propionate (Flonase) 2 spray DAILY NS Last administered on 07:41; Start 10/09/16 at 09:00 Furosemide (Lasix) 30 mg DAILY PO Last administered on 10/14/16 09:00; Start 10/09/16 at 09:00; Stop 10/14/16 at 13:59; Status DC Hydrocortisone (Proctosol-Hc) 1 diana PRN BID PRN RC Hemorrhoids Last administered on 10/14/16 21:34; Start 10/08/16 at 20:00 Polyethylene Glycol (miraLAX) 17 gm PRN DAILY PRN PO CONSTIPATION; Start at 09:00 Sodium Chloride (Saline Mist Nasal) 2 diana PRN BID PRN NS NASAL CONGESTION; Start 10/08/16 at 20:00 Tamsulosin HCl (Flomax) 0.4 mg DAILY PO Last administered on 10/18/16 07:40; Start 10/09/16 at 09:00 Fenofibrate (Tricor) 145 mg DAILY PO Last administered on 10/18/16 07:41; Start 10/09/16 at 09:00 Guaifenesin (MUCINEX ER with DM) 1 tab PRN Q4HRS PRN PO COUGH; Start 10/08/16 at 21:00 Lisinopril (Prinivil) 40 mg DAILY PO Last administered on 10/17/16 07:26; Start 10/09/16 at 09:00 Throat Lozenges (Cepacol Sore Throat Lozenge) 1 christianne PRN Q2HR PRN PO COUGH; Start 10/08/16 at 20:45 Escitalopram Oxalate (Lexapro) 10 mg DAILY PO Last administered on 10/18/16 07 :39; Start 10/10/16 at 09:00 Quetiapine Fumarate (SEROquel) 12.5 mg BID92 PO Last administered on 10/16/16 11:43; Start 10/10/16 at 09:00; Stop 10/16/16 at 19:11; Status DC Fish Oil (Fish Oil) 1,000 mg DAILYBFRLUN PO Last administered on 10/18/16 12: 01; Start 10/10/16 at 11:30 Vitamin D (Vitamin D3) 50,000 unit WEEKLY PO Last administered on 10/17/16 07: 41; Start 10/17/16 at 09:00 Cyanocobalamin (Vitamin B-12) 1,000 mcg [id number] IM Last administered on 13:07; Start 10/10/16 at 11:30 Vitamin D (Vitamin D3) 2,000 unit DAILY PO Last administered on 10/11/16 08:00 ; Start 10/11/16 at 09:00; Stop 10/11/16 at 11:35; Status DC Quetiapine Fumarate (SEROquel) 12.5 mg HS PO Last administered on 10/15/16 20: 07; Start 10/12/16 at 21:00; Stop 10/16/16 at 19:11; Status DC Carvedilol (Coreg) 6.25 mg BIDWMEALS PO Last administered on 10/18/16 17:39; Start 10/14/16 at 17:00 Furosemide (Lasix) 40 mg DAILY PO Last administered on 10/18/16 07:41; Start 10/15/16 at 09:00 Potassium Chloride (Klor-Con) 20 meq DAILYWBKFT PO Last administered on 07:40; Start 10/15/16 at 08:00 Buspirone HCl (Buspar) 5 mg BID PO Last administered on 10/18/16 19:45; Start 10/14/16 at 21:00 Clonazepam (KlonoPIN) 1 mg DAILY PO Last administered on 10/17/16 07:29; Start 10/15/16 at 09:00; Stop 10/17/16 at 11:30; Status DC Clonazepam (KlonoPIN) 0.5 mg HS PO Last administered on 10/16/16 19:53; Start 10/14/16 at 21:00; Stop 10/16/16 at 23:00; Status DC Clonazepam (KlonoPIN) 0.5 mg BID PO Last administered on 10/18/16 19:45; Start 10/18/16 at 09:00 Risperidone (RisperDAL) 0.25 mg BID PO Last administered on 10/18/16 19:46; Start 10/16/16 at 21:00 Active Scripts Active Reported Voltaren (Diclofenac Sodium) 100 Gm Gel..gram. 1 Diana TP PRN Q8HRS PRN Tylenol (Acetaminophen) 325 Mg Tablet 650 Mg PO PRN Q6HRS PRN Tamsulosin Hcl 0.4 Mg Cap.er.24h 0.4 Mg PO DAILY Saline Nasal [place] (Sodium Chloride) 30 Ml [place] 2 Sprays NS PRN BID PRN Miralax (Polyethylene Glycol 3350) 119 Gm Powder 17 Gm PO PRN DAILY PRN Melatonin 3 Mg Tablet 3 Mg PO QHS Lorazepam 0.5 Mg Tablet 0.5 Mg PO PRN Q6HRS PRN Lisinopril 40 Mg Tablet 40 Mg PO DAILY Lasix (Furosemide) 20 Mg Tablet 30 Mg PO DAILY Guaifenesin Dm 400-20 Mg Tab (Guaifenesin/Dextromethorphan) 1 Each Tablet 1 Tab PO PRN Q4HRS PRN Fluticasone Propionate Nasal [place] (Fluticasone Propionate) 16 Gm [place].susp 2 [place] NS DAILY Finasteride 5 Mg Tablet 5 Mg PO DAILY Fenofibrate 160 Mg Tablet 160 Mg PO DAILY Famotidine 20 Mg Tablet 20 Mg PO BIDBFRMEAL Depakote (Divalproex Sodium) 500 Mg Tablet.dr 500 Mg PO BID Cough Drops (Menthol/Herbal Drugs) 1 Each Lozenge 1 Christianne MM PRN Q2HR PRN Colace (Docusate Sodium) 100 Mg Capsule 100 Mg PO BID Clonazepam 1 Mg Tablet 1 Mg PO BID Celexa (Citalopram Hydrobromide) 40 Mg Tablet 40 Mg PO DAILY Carvedilol 12.5 Mg Tablet 12.5 Mg PO BIDWMEALS Atorvastatin Calcium 10 Mg Tablet 10 Mg PO QHS Aspirin 325 Mg Tablet 325 Mg PO DAILY Aricept (Donepezil Hcl) 5 Mg Tablet 5 Mg PO QHS Anusol-Hc (Hydrocortisone) 30 Gm Cream..g. 1 Diana RC PRN BID PRN Allopurinol 100 Mg Tablet 100 Mg PO BID ELKIN MALDONADO MD October 18, 2016 21:03
--- NOTE | 2016-10-18 23:36 | NUR ---
Behavior Intervention Response and Plan: BIRP Note: Behavior: Assumed Care of patient, patient located in Day Room at shift change. Patient exhibited the following behavior Calm, Social, Cooperative, very chatty talking about his favorite show counting cars and his own love of cars. Brief assessment on rounds of vital signs, medication needs, lab studies, and pain. Treatment plan problems 1 and 2. Intervention: Patient assessed and the following interventions initiated safety checks 15 Minute Checks Cognitive Assessment , Head to toe Assessment , Medications. Response: After interactions and interventions patient responded in the following manner, Calm , Compliant ,Cooperative. Continue to assess behaviors and condition will continue to monitor throughout the shift as needed. 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 Continue to assess patient for changes in above assessment. Monitor for medication needs, pain, and safety concerns. Hourly rounding performed to ensure safe environment.
--- NOTE | 2016-10-19 00:16 | PN ---
DATE: 10/17/2016 This is a late entry, 10/17/2016, covers the elements not covered in my initial note. SUBJECTIVE: The patient is being fairly cooperative on the unit, pleasant, a little impulsive at times and tolerating the Risperdal. REVIEW OF SYSTEMS: No CV, , pulmonary, eye, ENT system symptoms on review. Reliability poor. MENTAL STATUS EXAM: Oriented to himself. Insight, judgment, recent, and remote memory, attention and cons concentration, fund of concentration, fund of knowledge fair. No suicidal or homicidal ideation. IMPRESSION: Unchanged from initial note. PLAN: Continue psychotropics as mentioned in my initial note. MAN Rodolfo MALDONADO MD DR: JOSEPHINE/jersey JOB#: [id number] / [id number]
--- NOTE | 2016-10-19 00:20 | PN ---
DATE: 10/16/2016 PSYCHIATRIC PROGRESS NOTE This is a late entry covers the elements not covered in my initial note. SUBJECTIVE: Overall, the patient is doing better, less agitated, not sexually inappropriate or aggressive. No CV, , pulmonary, eye, ENT system symptoms on review. MENTAL STATUS EXAM: Reasonably oriented. Speech coherent, abstraction fair, computation impaired, language function intact. Mood and affect is improved. Impression unchanged from initial note. PLAN: custodial has informed us that patient developed peripheral edema, on Seroquel. Dr. Britt has assessed the patient and feels this is probably medically related rather than a reaction to Seroquel, but we will go ahead and nevertheless change the Seroquel to Risperdal 0.25 mg twice a day since the custodial are unwilling to accept him back with the Seroquel somewhat, which is understandable. Continue rest of the psychotropics. Klonopin is being tapered, Abundio CHAVEZ 500 b.i.d., level 51. ELKIN MALDONADO MD DR: JOSEPHINE/jersey JOB#: [id number] / [id number]
[2016-10-19 06:08] VITALS: BP 162/91
[2016-10-19] MEDS: busPIRone 5 MG TABLET. PO SCH ×2 (07:51→20:01)
[2016-10-19] MEDS: DOCUSATE SODIUM 100 MG CAPSULE PO SCH ×2 (07:51→19:58)
[2016-10-19] MEDS: FINASTERIDE 5 MG TABLET PO SCH (07:51)
[2016-10-19] MEDS: DIVALPROEX SODIUM 250 MG TABLET.DR. PO SCH ×2 (07:51→20:01)
[2016-10-19] MEDS: FENOFIBRATE NANOCRYSTALLIZED 145 MG TABLET PO SCH (07:51)
[2016-10-19] MEDS: FAMOTIDINE 20 MG TABLET PO SCH ×2 (07:51→16:39)
[2016-10-19] MEDS: ALLOPURINOL 100 MG TABLET. PO SCH ×2 (07:52→20:01)
[2016-10-19] MEDS: POTASSIUM CHLORIDE 20 MEQ TABLET.ER. PO SCH (07:52)
[2016-10-19] MEDS: ESCITALOPRAM 10 MG TABLET. PO SCH (07:52)
[2016-10-19] MEDS: risperiDONE 0.25 MG TABLET. PO SCH ×2 (07:53→20:01)
[2016-10-19] MEDS: LISINOPRIL 20 MG TABLET PO SCH (07:53)
[2016-10-19] MEDS: CARVEDILOL 6.25 MG TABLET PO SCH ×2 (07:53→16:39)
[2016-10-19] MEDS: FLUTICASONE 50MCG/NASAL SPRAY 16GM BOTTLE. NS SCH (07:54)
[2016-10-19] MEDS: TAMSULOSIN 0.4 MG CAP.ER.24H. PO SCH (07:54)
[2016-10-19] MEDS: FUROSEMIDE 40 MG TABLET PO SCH (07:54)
[2016-10-19] MEDS: clonazePAM 0.5 MG TABLET PO SCH ×2 (07:54→20:03)
[2016-10-19] MEDS: ASPIRIN 325 MG TABLET PO SCH (07:54)
[2016-10-19] MEDS: OMEGA-3 FATTY ACIDS/FISH OIL 1,000 MG CAPSULE. PO SCH (12:16)
--- NOTE | 2016-10-19 14:00 | NUR ---
THERAPEUTIC RECREATION GROUP NOTE TITLE :: Ice Cream and Program ACTIVITY : Social Events and Holidays GOAL : Facilitate sense of belonging and well-being, elevate mood, increase socialization and social skills. Incorporate traditions. DURATION : 120 Minutes RESPONSE : Full participation. 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 Pt. applauded throughout the program. He needed no prompting to stay on task. He went back and forth between the rooms in the afternoon.
[2016-10-19 15:42] VITALS: BP 139/72
[2016-10-19] MEDS: DONEPEZIL HCL 5 MG TABLET. PO SCH (20:01)
[2016-10-19] MEDS: MELATONIN 3 MG TABLET PO SCH (20:01)
[2016-10-19] MEDS: ATORVASTATIN CALCIUM 10 MG TABLET. PO SCH (20:02)
--- NOTE | 2016-10-19 20:57 | PDOC ---
Exam Stanford Demential Exam: [facility] Note: Please also refer to the separate dictated note~for this date of service dictated separately.~Patient seen individually. Discussed the patient with Nursing staff reviewed the chart.~Reviewed interim history and current functioning. Reviewed vital signs,~Labs/ Radiology~and current medications noted below. Continue current treatment with the changes noted in the dictated addendum note Assessment: Vital Signs: Vital Signs Date Time Temp Pulse Resp B/P (MAP) Pulse Ox O2 Delivery O2 Flow Rate FiO2 10/19/16 16:39 73 139/72 10/19/16 15:42 99.1 20 94 10/18/16 16:14 Room Air I&O Intake and Output 10/19/16 07:00 Intake Total 1720 ml Balance 1720 ml Intake Oral 1720 ml Current Medications: Meds: Current Medications Clonazepam (KlonoPIN) 1 mg BID PO Last administered on 10/14/16 08:58; Start 10/08/16 at 21:00; Stop 10/14/16 at 19:00; Status DC Donepezil HCl (Aricept) 5 mg QHS PO Last administered on 10/19/16 20:01; Start 10/08/16 at 21:00 Lorazepam (Ativan) 0.5 mg PRN Q6HRS PRN PO ANXIETY / AGITATION; Start 10/08/16 at 19:45 Citalopram Hydrobromide (CeleXA) 40 mg DAILY PO Last administered on 10/09/16 08:05; Start 10/09/16 at 09:00; Stop 10/09/16 at 18:44; Status DC Divalproex Sodium (Depakote) 500 mg BID PO Last administered on 10/19/16 20:01 ; Start 10/08/16 at 21:00 Melatonin 3 mg QHS PO Last administered on 10/19/16 20:01; Start 10/08/16 at 21:00 Acetaminophen (Tylenol) 650 mg PRN Q6HRS PRN PO PAIN / TEMP Last administered on 10/14/16 12:36; Start 10/08/16 at 20:00 Allopurinol (Zyloprim) 100 mg BID PO Last administered on 10/19/16 20:01; Start 10/08/16 at 21:00 Aspirin (Roberta Aspirin) 325 mg DAILY PO Last administered on 10/19/16 07:54; Start 10/09/16 at 09:00 Atorvastatin Calcium (Lipitor) 10 mg QHS PO Last administered on 10/19/16 20: 02; Start 10/08/16 at 21:00 Carvedilol (Coreg) 12.5 mg BIDWMEALS PO Last administered on 10/14/16 08:53; Start 10/09/16 at 08:00; Stop 10/14/16 at 13:58; Status DC Diclofenac Sodium (Voltaren) 1 diana PRN Q8HRS PRN TP PAIN; Start 10/08/16 at 20: 00 Docusate Sodium (Colace) 100 mg BID PO Last administered on 10/19/16 19:58; Start 10/08/16 at 21:00 Famotidine (Pepcid) 20 mg BIDBFRMEAL PO Last administered on 10/19/16 16:39; Start 10/09/16 at 07:30 Finasteride (Proscar) 5 mg DAILY PO Last administered on 10/19/16 07:51; Start 10/09/16 at 09:00 Fluticasone Propionate (Flonase) 2 spray DAILY NS Last administered on 07:54; Start 10/09/16 at 09:00 Furosemide (Lasix) 30 mg DAILY PO Last administered on 10/14/16 09:00; Start 10/09/16 at 09:00; Stop 10/14/16 at 13:59; Status DC Hydrocortisone (Proctosol-Hc) 1 diana PRN BID PRN RC Hemorrhoids Last administered on 10/14/16 21:34; Start 10/08/16 at 20:00 Polyethylene Glycol (miraLAX) 17 gm PRN DAILY PRN PO CONSTIPATION; Start at 09:00 Sodium Chloride (Saline Mist Nasal) 2 diana PRN BID PRN NS NASAL CONGESTION; Start 10/08/16 at 20:00 Tamsulosin HCl (Flomax) 0.4 mg DAILY PO Last administered on 10/19/16 07:54; Start 10/09/16 at 09:00 Fenofibrate (Tricor) 145 mg DAILY PO Last administered on 10/19/16 07:51; Start 10/09/16 at 09:00 Guaifenesin (MUCINEX ER with DM) 1 tab PRN Q4HRS PRN PO COUGH; Start 10/08/16 at 21:00 Lisinopril (Prinivil) 40 mg DAILY PO Last administered on 10/19/16 07:53; Start 10/09/16 at 09:00 Throat Lozenges (Cepacol Sore Throat Lozenge) 1 christianne PRN Q2HR PRN PO COUGH; Start 10/08/16 at 20:45 Escitalopram Oxalate (Lexapro) 10 mg DAILY PO Last administered on 10/19/16 07 :52; Start 10/10/16 at 09:00 Quetiapine Fumarate (SEROquel) 12.5 mg BID92 PO Last administered on 10/16/16 11:43; Start 10/10/16 at 09:00; Stop 10/16/16 at 19:11; Status DC Fish Oil (Fish Oil) 1,000 mg DAILYBFRLUN PO Last administered on 10/19/16 12: 16; Start 10/10/16 at 11:30 Vitamin D (Vitamin D3) 50,000 unit WEEKLY PO Last administered on 10/17/16 07: 41; Start 10/17/16 at 09:00 Cyanocobalamin (Vitamin B-12) 1,000 mcg [id number] IM Last administered on 13:07; Start 10/10/16 at 11:30 Vitamin D (Vitamin D3) 2,000 unit DAILY PO Last administered on 10/11/16 08:00 ; Start 10/11/16 at 09:00; Stop 10/11/16 at 11:35; Status DC Quetiapine Fumarate (SEROquel) 12.5 mg HS PO Last administered on 10/15/16 20: 07; Start 10/12/16 at 21:00; Stop 10/16/16 at 19:11; Status DC Carvedilol (Coreg) 6.25 mg BIDWMEALS PO Last administered on 10/19/16 16:39; Start 10/14/16 at 17:00 Furosemide (Lasix) 40 mg DAILY PO Last administered on 10/19/16 07:54; Start 10/15/16 at 09:00 Potassium Chloride (Klor-Con) 20 meq DAILYWBKFT PO Last administered on 07:52; Start 10/15/16 at 08:00 Buspirone HCl (Buspar) 5 mg BID PO Last administered on 10/19/16 20:01; Start 10/14/16 at 21:00 Clonazepam (KlonoPIN) 1 mg DAILY PO Last administered on 10/17/16 07:29; Start 10/15/16 at 09:00; Stop 10/17/16 at 11:30; Status DC Clonazepam (KlonoPIN) 0.5 mg HS PO Last administered on 10/16/16 19:53; Start 10/14/16 at 21:00; Stop 10/16/16 at 23:00; Status DC Clonazepam (KlonoPIN) 0.5 mg BID PO Last administered on 10/19/16 20:03; Start 10/18/16 at 09:00 Risperidone (RisperDAL) 0.25 mg BID PO Last administered on 10/19/16 20:01; Start 10/16/16 at 21:00 Active Scripts Active Reported Voltaren (Diclofenac Sodium) 100 Gm Gel..gram. 1 Diana TP PRN Q8HRS PRN Tylenol (Acetaminophen) 325 Mg Tablet 650 Mg PO PRN Q6HRS PRN Tamsulosin Hcl 0.4 Mg Cap.er.24h 0.4 Mg PO DAILY Saline Nasal [place] (Sodium Chloride) 30 Ml [place] 2 Sprays NS PRN BID PRN Miralax (Polyethylene Glycol 3350) 119 Gm Powder 17 Gm PO PRN DAILY PRN Melatonin 3 Mg Tablet 3 Mg PO QHS Lorazepam 0.5 Mg Tablet 0.5 Mg PO PRN Q6HRS PRN Lisinopril 40 Mg Tablet 40 Mg PO DAILY Lasix (Furosemide) 20 Mg Tablet 30 Mg PO DAILY Guaifenesin Dm 400-20 Mg Tab (Guaifenesin/Dextromethorphan) 1 Each Tablet 1 Tab PO PRN Q4HRS PRN Fluticasone Propionate Nasal [place] (Fluticasone Propionate) 16 Gm [place].susp 2 [place] NS DAILY Finasteride 5 Mg Tablet 5 Mg PO DAILY Fenofibrate 160 Mg Tablet 160 Mg PO DAILY Famotidine 20 Mg Tablet 20 Mg PO BIDBFRMEAL Depakote (Divalproex Sodium) 500 Mg Tablet.dr 500 Mg PO BID Cough Drops (Menthol/Herbal Drugs) 1 Each Lozenge 1 Christianne MM PRN Q2HR PRN Colace (Docusate Sodium) 100 Mg Capsule 100 Mg PO BID Clonazepam 1 Mg Tablet 1 Mg PO BID Celexa (Citalopram Hydrobromide) 40 Mg Tablet 40 Mg PO DAILY Carvedilol 12.5 Mg Tablet 12.5 Mg PO BIDWMEALS Atorvastatin Calcium 10 Mg Tablet 10 Mg PO QHS Aspirin 325 Mg Tablet 325 Mg PO DAILY Aricept (Donepezil Hcl) 5 Mg Tablet 5 Mg PO QHS Anusol-Hc (Hydrocortisone) 30 Gm Cream..g. 1 Diana RC PRN BID PRN Allopurinol 100 Mg Tablet 100 Mg PO BID ELKIN MALDONADO MD October 19, 2016 20:57
--- NOTE | 2016-10-20 02:54 | NUR ---
Behavior Intervention Response and Plan: BIRP Note: Behavior: Assumed Care of patient, patient located in Day Room at shift change. Patient exhibited the following behavior Calm, Interactive, Cooperative. Brief assessment on rounds of vital signs, medication needs, lab studies, and pain. Treatment plan problems Alteration in Thought Process and Fall Risk. Intervention: Patient assessed and the following interventions initiated safety checks 15 Minute Checks Cognitive Assessment , Medications , Oral Hydration. Response: After interactions and interventions patient responded in the following manner, Calm , Compliant ,Cooperative. Continue to assess behaviors and condition will continue to monitor throughout the shift as needed. Plan: Continue to monitor Master Treatment Plan for patient's progress toward short term goals of Decreased Agitation, Decreased Aggression, custodial goals to return to previous living setting vs placement. Continue to assess patient for changes in above assessment. Monitor for medication needs, pain, and safety concerns. Hourly rounding performed to ensure safe environment.
[2016-10-20 05:41] VITALS: BP 120/78
[2016-10-20] MEDS: ALLOPURINOL 100 MG TABLET. PO SCH ×2 (08:16→20:19)
[2016-10-20] MEDS: ASPIRIN 325 MG TABLET PO SCH (08:16)
[2016-10-20] MEDS: FENOFIBRATE NANOCRYSTALLIZED 145 MG TABLET PO SCH (08:16)
[2016-10-20] MEDS: TAMSULOSIN 0.4 MG CAP.ER.24H. PO SCH (08:16)
[2016-10-20] MEDS: FAMOTIDINE 20 MG TABLET PO SCH ×2 (08:17→15:55)
[2016-10-20] MEDS: DOCUSATE SODIUM 100 MG CAPSULE PO SCH ×2 (08:17→20:17)
[2016-10-20] MEDS: risperiDONE 0.25 MG TABLET. PO SCH ×2 (08:17→20:17)
[2016-10-20] MEDS: LISINOPRIL 20 MG TABLET PO SCH (08:17)
[2016-10-20] MEDS: busPIRone 5 MG TABLET. PO SCH ×2 (08:17→20:17)
[2016-10-20] MEDS: FINASTERIDE 5 MG TABLET PO SCH (08:18)
[2016-10-20] MEDS: ESCITALOPRAM 10 MG TABLET. PO SCH (08:18)
[2016-10-20] MEDS: POTASSIUM CHLORIDE 20 MEQ TABLET.ER. PO SCH (08:18)
[2016-10-20] MEDS: DIVALPROEX SODIUM 250 MG TABLET.DR. PO SCH ×2 (08:18→20:17)
[2016-10-20] MEDS: FUROSEMIDE 40 MG TABLET PO SCH (08:18)
[2016-10-20] MEDS: CARVEDILOL 6.25 MG TABLET PO SCH ×2 (08:19→15:55)
[2016-10-20] MEDS: clonazePAM 0.5 MG TABLET PO SCH ×2 (08:20→20:19)
[2016-10-20] MEDS: FLUTICASONE 50MCG/NASAL SPRAY 16GM BOTTLE. NS SCH (08:21)
--- NOTE | 2016-10-20 09:35 | NUR ---
[facility] faxed updated clinical notes to EREN Humphreys to assist w/dc plans set for Wednesday.
--- NOTE | 2016-10-20 09:35 | NUR ---
[facility] Social Work Discharge Planning Form Patient Name NAYELI PERAZA Admit Date: 10/08/16 DISCHARGE PLAN Discharge Destination: return to [facility] Transportation: Facility to tack picker 10/21/16 at 10:00 SPECIAL INSTRUCTIONS: Please note facility uses [facility] DISCHARGE TO FACILITY Facility: [facility] Address: [address] [place] [address] Contact Name: PCP: at facility w/in 10-12 days of dc Psychiatrist: at facility w/in 10-12 days of dc PHARMACY: [facility] in [place], [place] PHONE: [phone] FAX: [phone]
--- NOTE | 2016-10-20 09:45 | NUR ---
Behavior Intervention Response and Plan: BIRP Note: Behavior: Assumed Care of patient, patient located in Day Room at shift change. Patient exhibited the following behavior Calm, Able to Focus on Task, Social. Brief assessment on rounds of vital signs, medication needs, lab studies, and pain. Treatment plan problems . Intervention: Patient assessed and the following interventions initiated safety checks 15 Minute Checks Head to toe Assessment , Medications , Nutrition. Response: After interactions and interventions patient responded in the following manner, Compliant , Cooperative ,Social. Continue to assess behaviors and condition will continue to monitor throughout the shift as needed. 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 Continue to assess patient for changes in above assessment. Monitor for medication needs, pain, and safety concerns. Hourly rounding performed to ensure safe environment.
[2016-10-20] MEDS: OMEGA-3 FATTY ACIDS/FISH OIL 1,000 MG CAPSULE. PO SCH (11:42)
--- NOTE | 2016-10-20 14:00 | NUR ---
THERAPEUTIC RECREATION GROUP NOTE TITLE :Sing along with Jacob ACTIVITY : Music GOAL : Increase socialization, elevate mood, stimulate memory DURATION : 120 Minutes RESPONSE : Full participation. Pt. needed no prompting to stay on task. He had a smile on his face most of the time. He sang along with songs, requested songs, sang in the microphone and applauded groups singing. He enjoyed reminiscing about songs and eras.
[2016-10-20 15:56] VITALS: BP 148/77
[2016-10-20] MEDS: MELATONIN 3 MG TABLET PO SCH (20:17)
[2016-10-20] MEDS: ATORVASTATIN CALCIUM 10 MG TABLET. PO SCH (20:17)
[2016-10-20] MEDS: DONEPEZIL HCL 5 MG TABLET. PO SCH (20:17)
--- NOTE | 2016-10-20 21:11 | PDOC ---
Exam [facility] Demential Exam: [facility] Note: Please also refer to the separate dictated note~for this date of service dictated separately.~Patient seen individually. Discussed the patient with Nursing staff reviewed the chart.~Reviewed interim history and current functioning. Reviewed vital signs,~Labs/ Radiology~and current medications noted below. Continue current treatment with the changes noted in the dictated addendum note Assessment: Vital Signs: Vital Signs Date Time Temp Pulse Resp B/P (MAP) Pulse Ox O2 Delivery O2 Flow Rate FiO2 10/20/16 15:56 97.9 64 18 148/77 (100) 96 10/18/16 16:14 Room Air I&O Intake and Output 10/20/16 07:00 Intake Total 1680 ml Balance 1680 ml Intake Oral 1680 ml # Bowel Movements 2 Current Medications: Meds: Current Medications Clonazepam (KlonoPIN) 1 mg BID PO Last administered on 10/14/16 08:58; Start 10/08/16 at 21:00; Stop 10/14/16 at 19:00; Status DC Donepezil HCl (Aricept) 5 mg QHS PO Last administered on 10/20/16 20:17; Start 10/08/16 at 21:00 Lorazepam (Ativan) 0.5 mg PRN Q6HRS PRN PO ANXIETY / AGITATION; Start 10/08/16 at 19:45 Citalopram Hydrobromide (CeleXA) 40 mg DAILY PO Last administered on 10/09/16 08:05; Start 10/09/16 at 09:00; Stop 10/09/16 at 18:44; Status DC Divalproex Sodium (Depakote) 500 mg BID PO Last administered on 10/20/16 20:17 ; Start 10/08/16 at 21:00 Melatonin 3 mg QHS PO Last administered on 10/20/16 20:17; Start 10/08/16 at 21:00 Acetaminophen (Tylenol) 650 mg PRN Q6HRS PRN PO PAIN / TEMP Last administered on 10/14/16 12:36; Start 10/08/16 at 20:00 Allopurinol (Zyloprim) 100 mg BID PO Last administered on 10/20/16 20:19; Start 10/08/16 at 21:00 Aspirin (Roberta Aspirin) 325 mg DAILY PO Last administered on 10/20/16 08:16; Start 10/09/16 at 09:00 Atorvastatin Calcium (Lipitor) 10 mg QHS PO Last administered on 10/20/16 20: 17; Start 10/08/16 at 21:00 Carvedilol (Coreg) 12.5 mg BIDWMEALS PO Last administered on 10/14/16 08:53; Start 10/09/16 at 08:00; Stop 10/14/16 at 13:58; Status DC Diclofenac Sodium (Voltaren) 1 diana PRN Q8HRS PRN TP PAIN; Start 10/08/16 at 20: 00 Docusate Sodium (Colace) 100 mg BID PO Last administered on 10/20/16 20:17; Start 10/08/16 at 21:00 Famotidine (Pepcid) 20 mg BIDBFRMEAL PO Last administered on 10/20/16 15:55; Start 10/09/16 at 07:30 Finasteride (Proscar) 5 mg DAILY PO Last administered on 10/20/16 08:18; Start 10/09/16 at 09:00 Fluticasone Propionate (Flonase) 2 spray DAILY NS Last administered on 08:21; Start 10/09/16 at 09:00 Furosemide (Lasix) 30 mg DAILY PO Last administered on 10/14/16 09:00; Start 10/09/16 at 09:00; Stop 10/14/16 at 13:59; Status DC Hydrocortisone (Proctosol-Hc) 1 diana PRN BID PRN RC Hemorrhoids Last administered on 10/14/16 21:34; Start 10/08/16 at 20:00 Polyethylene Glycol (miraLAX) 17 gm PRN DAILY PRN PO CONSTIPATION; Start at 09:00 Sodium Chloride (Saline Mist Nasal) 2 diana PRN BID PRN NS NASAL CONGESTION; Start 10/08/16 at 20:00 Tamsulosin HCl (Flomax) 0.4 mg DAILY PO Last administered on 10/20/16 08:16; Start 10/09/16 at 09:00 Fenofibrate (Tricor) 145 mg DAILY PO Last administered on 10/20/16 08:16; Start 10/09/16 at 09:00 Guaifenesin (MUCINEX ER with DM) 1 tab PRN Q4HRS PRN PO COUGH; Start 10/08/16 at 21:00 Lisinopril (Prinivil) 40 mg DAILY PO Last administered on 10/20/16 08:17; Start 10/09/16 at 09:00 Throat Lozenges (Cepacol Sore Throat Lozenge) 1 christianne PRN Q2HR PRN PO COUGH; Start 10/08/16 at 20:45 Escitalopram Oxalate (Lexapro) 10 mg DAILY PO Last administered on 10/20/16 08 :18; Start 10/10/16 at 09:00 Quetiapine Fumarate (SEROquel) 12.5 mg BID92 PO Last administered on 10/16/16 11:43; Start 10/10/16 at 09:00; Stop 10/16/16 at 19:11; Status DC Fish Oil (Fish Oil) 1,000 mg [id number] PO Last administered on 10/20/16 11: 42; Start 10/10/16 at 11:30 Vitamin D (Vitamin D3) 50,000 unit WEEKLY PO Last administered on 10/17/16 07: 41; Start 10/17/16 at 09:00 Cyanocobalamin (Vitamin B-12) 1,000 mcg [id number] IM Last administered on 13:07; Start 10/10/16 at 11:30 Vitamin D (Vitamin D3) 2,000 unit DAILY PO Last administered on 10/11/16 08:00 ; Start 10/11/16 at 09:00; Stop 10/11/16 at 11:35; Status DC Quetiapine Fumarate (SEROquel) 12.5 mg HS PO Last administered on 10/15/16 20: 07; Start 10/12/16 at 21:00; Stop 10/16/16 at 19:11; Status DC Carvedilol (Coreg) 6.25 mg BIDWMEALS PO Last administered on 10/20/16 15:55; Start 10/14/16 at 17:00 Furosemide (Lasix) 40 mg DAILY PO Last administered on 10/20/16 08:18; Start 10/15/16 at 09:00 Potassium Chloride (Klor-Con) 20 meq DAILYWBKFT PO Last administered on 08:18; Start 10/15/16 at 08:00 Buspirone HCl (Buspar) 5 mg BID PO Last administered on 10/20/16 20:17; Start 10/14/16 at 21:00 Clonazepam (KlonoPIN) 1 mg DAILY PO Last administered on 10/17/16 07:29; Start 10/15/16 at 09:00; Stop 10/17/16 at 11:30; Status DC Clonazepam (KlonoPIN) 0.5 mg HS PO Last administered on 10/16/16 19:53; Start 10/14/16 at 21:00; Stop 10/16/16 at 23:00; Status DC Clonazepam (KlonoPIN) 0.5 mg BID PO Last administered on 10/20/16 20:19; Start 10/18/16 at 09:00 Risperidone (RisperDAL) 0.25 mg BID PO Last administered on 10/20/16 20:17; Start 10/16/16 at 21:00 Active Scripts Active Reported Voltaren (Diclofenac Sodium) 100 Gm Gel..gram. 1 Diana TP PRN Q8HRS PRN Tylenol (Acetaminophen) 325 Mg Tablet 650 Mg PO PRN Q6HRS PRN Tamsulosin Hcl 0.4 Mg Cap.er.24h 0.4 Mg PO DAILY Saline Nasal [place] (Sodium Chloride) 30 Ml [place] 2 Sprays NS PRN BID PRN Miralax (Polyethylene Glycol 3350) 119 Gm Powder 17 Gm PO PRN DAILY PRN Melatonin 3 Mg Tablet 3 Mg PO QHS Lorazepam 0.5 Mg Tablet 0.5 Mg PO PRN Q6HRS PRN Lisinopril 40 Mg Tablet 40 Mg PO DAILY Lasix (Furosemide) 20 Mg Tablet 30 Mg PO DAILY Guaifenesin Dm 400-20 Mg Tab (Guaifenesin/Dextromethorphan) 1 Each Tablet 1 Tab PO PRN Q4HRS PRN Fluticasone Propionate Nasal [place] (Fluticasone Propionate) 16 Gm [place].susp 2 [place] NS DAILY Finasteride 5 Mg Tablet 5 Mg PO DAILY Fenofibrate 160 Mg Tablet 160 Mg PO DAILY Famotidine 20 Mg Tablet 20 Mg PO BIDBFRMEAL Depakote (Divalproex Sodium) 500 Mg Tablet.dr 500 Mg PO BID Cough Drops (Menthol/Herbal Drugs) 1 Each Lozenge 1 Christianne MM PRN Q2HR PRN Colace (Docusate Sodium) 100 Mg Capsule 100 Mg PO BID Clonazepam 1 Mg Tablet 1 Mg PO BID Celexa (Citalopram Hydrobromide) 40 Mg Tablet 40 Mg PO DAILY Carvedilol 12.5 Mg Tablet 12.5 Mg PO BIDWMEALS Atorvastatin Calcium 10 Mg Tablet 10 Mg PO QHS Aspirin 325 Mg Tablet 325 Mg PO DAILY Aricept (Donepezil Hcl) 5 Mg Tablet 5 Mg PO QHS Anusol-Hc (Hydrocortisone) 30 Gm Cream..g. 1 Diana RC PRN BID PRN Allopurinol 100 Mg Tablet 100 Mg PO BID ELKIN MALDONADO MD October 20, 2016 21:11
--- NOTE | 2016-10-20 21:47 | PN ---
DATE: 10/18/2016 This late entry 10/18/2016 covers elements not covered in my initial note. SUBJECTIVE: Overall, the patient has had a good day per nursing report. He has not been aggressive, disruptive, tolerating the change of Seroquel to Risperdal. REVIEW OF SYSTEMS: No CV, , pulmonary, eye system symptoms on review. MENTAL STATUS EXAM: Reasonably oriented. Speech is coherent, abstraction fair, computation reasonable, language function intact, attention span short. Mood and affect is improved. LABORATORY DATA: Reviewed. IMPRESSION: Unchanged from initial note. PLAN: Continue current psychotropics including Risperdal 0.25 mg b.i.d. Adjust further as clinically indicated. MAN Rodolfo MALDONADO MD DR: JOSEPHINE/jersey JOB#: [id number] / [id number]
--- NOTE | 2016-10-20 22:03 | PN ---
DATE: 10/19/2016 This is a late entry for 10/19/2016 covers elements not covered in my initial note. SUBJECTIVE: Overall, the patient has been cooperative and compliant on the unit per nursing report. REVIEW OF SYSTEMS: No CV, , eye, ENT, pulmonary system symptoms on review. Reliability fair. MENTAL STATUS EXAM: Reasonably oriented. Speech is coherent, abstraction fair, computation impaired, language function intact. Mood and affect appears improved. The patient was able to process at some length, ways to improve impulse control post-returning to the senior care. LABORATORY DATA: Reviewed. IMPRESSION: Unchanged from initial note. PLAN: Continue with current psychotropics mentioned in my initial note. MAN Rodolfo MALDONADO MD DR: JOSEPHINE/jersey JOB#: [id number] / [id number]
--- NOTE | 2016-10-20 23:30 | NUR ---
Behavior Intervention Response and Plan: BIRP Note: Behavior: Assumed Care of patient, patient located in Day Room at shift change. Patient exhibited the following behavior Calm, Appropriate, Compliant. Brief assessment on rounds of vital signs, medication needs, lab studies, and pain. Treatment plan problems Alteration in Thought Process and Fall Risk. Intervention: Patient assessed and the following interventions initiated safety checks 15 Minute Checks Cognitive Assessment , Medications , ADL's. Response: After interactions and interventions patient responded in the following manner, Calm , Disorganized ,Compliant. Continue to assess behaviors and condition will continue to monitor throughout the shift as needed. Plan: Continue to monitor Master Treatment Plan for patient's progress toward short term goals of Decreased Agitation, Decreased Anxiety, detention goals to return to previous living setting vs placement. Continue to assess patient for changes in above assessment. Monitor for medication needs, pain, and safety concerns. Hourly rounding performed to ensure safe environment.
[2016-10-21] MEDS ORDERED: BENZ1LOZ48 MM (03:47)
[2016-10-21] MEDS ORDERED: CHOL500016 PO (03:48)
[2016-10-21] MEDS ORDERED: ESCI10TA10 PO (03:51)
[2016-10-21] MEDS ORDERED: POTA20TA4 PO (03:58)
[2016-10-21] MEDS ORDERED: OMEG-33 PO (03:58)
[2016-10-21] MEDS ORDERED: BUSP5TAB PO (04:05)
[2016-10-21] MEDS ORDERED: GUAI-107 PO (04:13)
[2016-10-21] MEDS ORDERED: FENO145T2 PO (04:13)
[2016-10-21 04:54] VITALS: BP 111/62
[2016-10-21] MEDS ORDERED: CYAN10002 IM (08:29)
--- NOTE | 2016-10-21 08:50 | NUR ---
Prescriptions called in to [facility]# .
[2016-10-21] MEDS: ASPIRIN 325 MG TABLET PO SCH (08:54)
[2016-10-21] MEDS: FINASTERIDE 5 MG TABLET PO SCH (08:54)
[2016-10-21] MEDS: LISINOPRIL 20 MG TABLET PO SCH (08:55)
[2016-10-21] MEDS: POTASSIUM CHLORIDE 20 MEQ TABLET.ER. PO SCH (08:55)
[2016-10-21] MEDS: TAMSULOSIN 0.4 MG CAP.ER.24H. PO SCH (08:55)
[2016-10-21] MEDS: FENOFIBRATE NANOCRYSTALLIZED 145 MG TABLET PO SCH (08:55)
[2016-10-21] MEDS: ESCITALOPRAM 10 MG TABLET. PO SCH (08:55)
[2016-10-21 08:56] VITALS: BP 111/62
[2016-10-21] MEDS: FAMOTIDINE 20 MG TABLET PO SCH (08:56)
[2016-10-21] MEDS: ALLOPURINOL 100 MG TABLET. PO SCH (08:56)
[2016-10-21] MEDS: busPIRone 5 MG TABLET. PO SCH (08:56)
[2016-10-21] MEDS: DOCUSATE SODIUM 100 MG CAPSULE PO SCH (08:56)
[2016-10-21] MEDS: CARVEDILOL 6.25 MG TABLET PO SCH (08:56)
[2016-10-21] MEDS: DIVALPROEX SODIUM 250 MG TABLET.DR. PO SCH (08:56)
[2016-10-21] MEDS: FUROSEMIDE 40 MG TABLET PO SCH (08:56)
[2016-10-21] MEDS: FLUTICASONE 50MCG/NASAL SPRAY 16GM BOTTLE. NS SCH (08:58)
[2016-10-21] MEDS: risperiDONE 0.25 MG TABLET. PO SCH (08:58)
[2016-10-21] MEDS: clonazePAM 0.5 MG TABLET PO SCH (08:58)
--- NOTE | 2016-10-21 10:03 | NUR ---
Discharge Note [facility] Patient is not currently a tobacco user. Follow up Appointment made: YES Date and Time instructions and Social Work Discharge planning sheet sent to next level of care. 10/21/16 3037 [facility] Unit contact Number for 24 hour support [phone] Discharge Packet Sent, and discusssed with patient and caregiver that includes Copies from the record of current medications with indications and frequencies, history and physical, Psychiatric Eval with reason and justification for admission, Lab values, Radiology results , follow up instructions for continuation of care, and Social Work discharge planning form: YES Discharge Packet Faxed to Provider/Next Level of Care: YES Discharge Packet Faxed with discharge Order and Discharge diagnosis sent to: SULMA MONTERO Discharge Packet Discussed, and report Given to: Discharge instruction sheet was included in the packet and sent with the patient upon discharge. Any Pending lab results can be obtained by calling [phone] Discharge Summary will be sent to next care provider when available. This includes the reason for admission, DC diagnosis, and next level of care recommendations.
--- NOTE | 2016-10-22 08:27 | PN ---
DATE: 10/20/2016 PSYCHIATRIC PROGRESS NOTE This is a late entry 10/20/2016, covers elements not covered in my initial note. SUBJECTIVE: Per nursing report, the patient has been "ladies' man." He has not been sexually inappropriate however, though he enjoys the company of ladies whenever he is able to get this. 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 REVIEW OF SYSTEMS: No CV, , pulmonary, eye, ENT system symptoms on review. MENTAL STATUS EXAM: Reasonably oriented. Speech coherent, abstraction fair, computation impaired, language function intact. Mood and affect is stable. During the individual visit, we processed at length ways to improve impulse control with self control when he is back at the residential. IMPRESSION: Unchanged from initial note. PLAN: Continue psychotropics mentioned in my initial note. MAN Rodolfo MALDONADO MD DR: JOSEPHINE/jersey JOB#: [id number] / [id number]
--- NOTE | 2016-10-23 18:53 | DS ---
DATE OF DISCHARGE: 10/21/2016 DISCHARGE SUMMARY/PSYCHIATRIC PROGRESS NOTE REASON FOR ADMISSION: Please refer to the admission history for details. Briefly, the patient is a 70-year-old male referred to us from Juliann Grant on account of increasing verbal aggression, threatening to kill staff members, yelling, being paranoid. He was noted to be extremely anxious, impulsive, depressed, had failed outpatient psychiatric interventions resulting in this referral. SIGNIFICANT FINDINGS AND CLINICAL COURSE: Following admission, the patient was seen daily individually by myself, followed medically per Dr. Black/Dr. Britt. He was noted by nursing staff to be "ladies man," but was not sexually aggressive with any of the female patients or staff members. Adjustments were made in his psychotropics and he seemed to respond to a combination of Aricept 5 mg a day, Lexapro 10 mg a day, Klonopin 1 mg at 0900 hours and 0.5 mg at bedtime until 3 days, then 0.5 mg b.i.d. on a tapering schedule, Depakote DR 500 mg b.i.d., Ativan p.r.n., melatonin 3 mg at bedtime, BuSpar 5 mg b.i.d., Risperdal 0.25 mg b.i.d. REVIEW OF SYSTEMS: Prior to discharge on 10/21/2016, no CV, , pulmonary, eye system symptoms on review. MENTAL STATUS EXAM: Reasonably oriented, but he does have some term memory deficits. Abstraction fair, computation reasonable, language function intact. Mood and affect improved. No suicidal or homicidal ideation at discharge. FINAL DIAGNOSES: Impulse control disorder, unspecified; major depressive disorder, recurrent, in partial remission; anxiety disorder, unspecified; cognitive disorder, unspecified. Rest diagnoses unchanged from admission. DISCHARGE MEDICATIONS: Please refer to the MARD. DISCHARGE INSTRUCTIONS: Outpatient psychiatric and medical followup at the senior care. ELKIN MALDONADO MD DR: JOSEPHINE/jersey JOB#: [id number] / [id number]
[2016-10-26] MEDS ORDERED: RISP0.2519 PO (13:39)
== END 2016-10-21 10:08 | DRG 885 ==
LOC: EEVIPCON 15:48 → ER 15:48 → GEROPSY 18:40
PROVIDERS: ADMIT Psychiatry & Neurology Psychiatry; ATTEND Psychiatry & Neurology Psychiatry
DX: F31.77 Bipolar disorder, in partial remission, most recent episode mixed (principal); Z68.41 Body mass index [BMI] 40.0-44.9, adult; E66.01 Morbid (severe) obesity due to excess calories; E78.5 Hyperlipidemia, unspecified; F03.90 Unspecified dementia, unspecified severity, without behavioral disturbance, psychotic disturbance, mood disturbance, and anxiety; F09 Unspecified mental disorder due to known physiological condition; F10.10 Alcohol abuse, uncomplicated; Y90.9 Presence of alcohol in blood, level not specified; F41.9 Anxiety disorder, unspecified; G47.00 Insomnia, unspecified; R26.9 Unspecified abnormalities of gait and mobility; F63.9 Impulse disorder, unspecified; I10 Essential (primary) hypertension; K21.9 Gastro-esophageal reflux disease without esophagitis; M10.9 Gout, unspecified; N40.0 Benign prostatic hyperplasia without lower urinary tract symptoms; Z79.899 Other long term (current) drug therapy; Z88.6 Allergy status to analgesic agent; Z91.81 History of falling
CPT/HCPCS: 36415; 80053; 80061; 80164; 81001; 82306; 82607; 83036; 83540; 83550; 83735; 84436; 84443; 84480; 85027; 85651; 86140; 86592; 86593; 93005; J3420; 99285-25

== ENCOUNTER 2018-12-06 17:50 | Inpatient (IN) | payer MEDICARE, MEDICAID ==
[~2018-12-06] VITALS: Ht 165.1 cm; Wt 133.4 kg
[~2018-12-06 17:50] MED LIST: ACET325T9 PO; ALLO100T PO; ASPI325T8 PO; ATOR10TA60 PO; BENZ1LOZ48 MM; BUSP5TAB PO; CARV12.547 PO; CHOL500016 PO; CITA40TA12 PO; CLON1TAB11 PO; CYAN10002 IM; DICL100G18 TP; DIVA500T2 PO; DOCU-109 PO; DONE5TAB56 PO; FAMO20TA5 PO; FENO145T30 PO; FENO160T PO; FINA5TAB4 PO; FLUT16SP21 NS; FURO-69 PO; GUAI-108 PO; GUAI-171 PO; HYDR30CR61 RC; LEXAPRO10 MG PO; LISI40TA PO; LORA0.5T PO; MELA3TAB2 PO; MENT1LOZ3 MM; OMEG-33 PO; POLY119P4 PO; POTA20TA4 PO; RISP0.2519 PO; SODI30SP NS; TAMS0.4C2 PO
[2018-12-06 18:29] LABS: BASO # 0.1 x10^3/uL (0.0-0.2); BASO % 1 % (0-3); EOS # 0.2 x10^3/uL (0.0-0.7); EOS % 3 % (0-3); HEMATOCRIT 45.2 % (39.0-53.0); HEMOGLOBIN 14.8 g/dL (13.0-17.5); LYMPH # 1.9 x10^3/uL (1.0-4.8); LYMPH % 26 % (24-48); MEAN CORPUSCULAR HEMOGLOBIN 32 pg (25-35); MEAN CORPUSCULAR HGB CONC 33 g/dL (31-37); MEAN CORPUSCULAR VOLUME 97 fL (79-100); MONO # 0.6 x10^3/uL (0.0-1.1); MONO % 8 % (0-9); NEUT # 4.5 x10^3uL (1.8-7.7); NEUT % 62 % (31-73); PLATELET COUNT 241 x10^3/uL (140-400); RED BLOOD COUNT 4.67 x10^6/uL (4.30-5.70); RED CELL DISTRIBUTION WIDTH 14.6 % (11.5-14.5); WHITE BLOOD COUNT 7.2 x10^3/uL (4.0-11.0)
[2018-12-06 18:42] LABS: ALBUMIN 3.5 g/dL (3.4-5.0); ALBUMIN/GLOBULIN RATIO 0.9 (1.0-1.7); CALCIUM 8.5 mg/dL (8.5-10.1); CREATININE 1.2 mg/dL (0.7-1.3); GFR 59.5; TOTAL BILIRUBIN 0.5 mg/dL (0.2-1.0); TOTAL PROTEIN 7.5 g/dL (6.4-8.2)
[2018-12-06 18:54] LABS: POTASSIUM 3.9 mmol/L (3.5-5.1)
[2018-12-06 18:58] LABS: CLARITY,URINE CLEAR; COLOR,URINE YELLOW
[2018-12-06 18:59] LABS: BACTERIA,URINE 0 /HPF (0-FEW); BILIRUBIN,URINE NEG (NEG); GLUCOSE,URINE NEG (NEG); NITRITE,URINE NEG (NEG); RBC,URINE OCC /HPF (0-2); SQUAMOUS EPITHELIAL CELL,UR OCC /LPF; UROBILINOGEN,URINE 0.2 mg/dL (0.2 mg/dL)
[2018-12-06 19:20] LABS: VAL ACID 21 mcg/mL (50-100)
--- NOTE | 2018-12-06 19:39 | PHYS DOC ---
Past History Past Medical History: Anxiety, Constipation, Dementia, GERD, High Cholesterol, Hypertension, UTI Past Surgical History: No Surgical History Alcohol Use: None Drug Use: None Adult General Chief Complaint Chief Complaint: PSYCH EVALUATION HPI HPI Patient is a 73 year old male who presents to the emergency department for medical clearance. The patient has been accepted to the senior behavioral health unit here at [facility]. Per protocol, the patient has come to the emergency department for medical screening examination. Patient has no complaints at this time. The patient was accepted to the behavioral health unit based off of reports from his senior care of increased aggressive behavior. Does have reported history of anxiety and depression. The patient at this time denies any complaints and is cooperative. Review of Systems Review of Systems Constitutional: Denies fever or chills [] Eyes: Denies change in visual acuity, redness, or eye pain [] HENT: Denies nasal congestion or sore throat [] Respiratory: Denies cough or shortness of breath [] Cardiovascular: Denies chest pain or edema[] GI: Denies abdominal pain, nausea, vomiting, bloody stools or diarrhea [] : Denies dysuria or hematuria [] Musculoskeletal: Chronic knee pain[] Integument: Denies rash or skin lesions [] Neurologic: Denies headache, focal weakness or sensory changes [] All other systems were reviewed and found to be within normal limits, except as documented in this note. Allergies Allergies Allergies Coded Allergies Type Severity Reaction Last Updated Verified niacin Allergy Intermediate 10/20/16 Yes Physical Exam Physical Exam Constitutional: Well developed, well nourished, no acute distress, non-toxic appearance. [] HENT: Normocephalic, atraumatic, bilateral external ears normal, oropharynx moist, no oral exudates, nose normal. [] Eyes: PERRLA, EOMI, conjunctiva normal, no discharge. [] Neck: Normal range of motion, no tenderness, supple, no stridor. [] Cardiovascular:Heart rate regular rhythm, no murmur [] Lungs & Thorax: Bilateral breath sounds clear to auscultation [] Abdomen: Bowel sounds normal, soft, no tenderness, no masses, no pulsatile masses. [] Skin: Warm, dry, no erythema, no rash. [] Back: No tenderness, no CVA tenderness. [] Extremities: No tenderness, no cyanosis, no clubbing, ROM intact. [] Neurologic: Alert and oriented X 3, normal motor function, normal sensory function, no focal deficits noted. [] Current Patient Data Vital Signs Vital Signs Date Time Temp Pulse Resp B/P (MAP) Pulse Ox O2 Delivery O2 Flow Rate FiO2 12/06/18 18:21 98.9 79 20 93 Room Air Lab Results Laboratory Tests Test 12/06/18 18:05 12/06/18 18:07 White Blood Count 7.2 x10^3/uL (4.0-11.0) Red Blood Count 4.67 x10^6/uL (4.30-5.70) Hemoglobin 14.8 g/dL (13.0-17.5) Hematocrit 45.2 % (39.0-53.0) Mean Corpuscular Volume 97 fL (79-100) Mean Corpuscular Hemoglobin 32 pg (25-35) Mean Corpuscular Hemoglobin Concent 33 g/dL (31-37) Red Cell Distribution Width 14.6 % (11.5-14.5) H Platelet Count 241 x10^3/uL (140-400) Neutrophils (%) (Auto) 62 % (31-73) Lymphocytes (%) (Auto) 26 % (24-48) Monocytes (%) (Auto) 8 % (0-9) Eosinophils (%) (Auto) 3 % (0-3) Basophils (%) (Auto) 1 % (0-3) Neutrophils # (Auto) 4.5 x10^3uL (1.8-7.7) Lymphocytes # (Auto) 1.9 x10^3/uL (1.0-4.8) Monocytes # (Auto) 0.6 x10^3/uL (0.0-1.1) Eosinophils # (Auto) 0.2 x10^3/uL (0.0-0.7) Basophils # (Auto) 0.1 x10^3/uL (0.0-0.2) Urine Collection Type Unknown Urine Color Yellow Urine Clarity Clear Urine pH 5.0 Urine Specific [place] 1.015 Urine Protein Neg (NEG-TRACE) Urine Glucose (UA) Neg mg/dL (NEG) Urine Ketones (Stick) Neg mg/dL (NEG) Urine Blood Neg (NEG) Urine Nitrite Neg (NEG) Urine Bilirubin Neg (NEG) Urine Urobilinogen Dipstick 0.2 mg/dL (0.2 mg/dL) Urine Leukocyte Esterase Neg (NEG) Urine RBC Occ /HPF (0-2) Urine WBC 1-4 /HPF (0-4) Urine Squamous Epithelial Cells Occ /LPF Urine Bacteria 0 /HPF (0-FEW) Sodium Level 138 mmol/L (136-145) Potassium Level 3.9 mmol/L (3.5-5.1) Chloride Level 101 mmol/L (98-107) Carbon Dioxide Level 29 mmol/L (21-32) Anion Gap 8 (6-14) Blood Urea Nitrogen 19 mg/dL (8-26) Creatinine 1.2 mg/dL (0.7-1.3) Estimated GFR (Cockcroft-Gault) 59.5 BUN/Creatinine Ratio 16 (6-20) Glucose Level 174 mg/dL (70-99) H Calcium Level 8.5 mg/dL (8.5-10.1) Magnesium Level 2.0 mg/dL (1.8-2.4) Total Bilirubin 0.5 mg/dL (0.2-1.0) Aspartate Amino Transferase (AST) 40 U/L (15-37) H Alanine Aminotransferase (ALT) 34 U/L (16-63) Alkaline Phosphatase 130 U/L (46-116) H Total Protein 7.5 g/dL (6.4-8.2) Albumin 3.5 g/dL (3.4-5.0) Albumin/Globulin Ratio 0.9 (1.0-1.7) L Valproic Acid Level 21 mcg/mL (50-100) L Valproic Acid Last Dose Date 12/06/18 Valproic Acid Last Dose Time 0900 EKG EKG Interpreted by me: Heart rate 71, sinus rhythm, left axis deviation, no acute ST/T-wave abnormalities present[] Radiology/Procedures Radiology/Procedures Not performed[] Course & Med Decision Making Course & Med Decision Making Pertinent Labs and Imaging studies reviewed. (See chart for details) The patient has been examined in the emergency department and is medically cleared for [facility].[] Dragon Disclaimer Dragon Disclaimer This electronic medical record was generated, in whole or in part, using a voice recognition dictation system. Departure Departure: Impression: Primary Impression: Medical clearance for psychiatric admission Disposition: ADMITTED INPATIENT Admitting Physician: Other Condition: STABLE Referrals: NON,STAFF (PCP) NIDA BLANDON MD Dec 06, 2018 19:39
[2018-12-06 21:00] VITALS: BP 125/57
--- NOTE | 2018-12-06 22:18 | PDOC ---
Exam Note: [facility] Note: Please also refer to the separate dictated note~for this date of service dictated separately. Discussed the patient with Nursing staff reviewed the chart.~Reviewed interim history and current functioning. Reviewed vital signs,~Labs/ Radiology~and current medications noted below. Continue current treatment with the changes noted in the dictated addendum note Assessment: Vital Signs/I&O: Vital Signs Date Time Temp Pulse Resp B/P (MAP) Pulse Ox O2 Delivery O2 Flow Rate FiO2 12/06/18 18:21 98.9 79 20 93 Room Air Labs: Laboratory Tests Test 12/06/18 18:05 12/06/18 18:07 White Blood Count 7.2 x10^3/uL (4.0-11.0) Red Blood Count 4.67 x10^6/uL (4.30-5.70) Hemoglobin 14.8 g/dL (13.0-17.5) Hematocrit 45.2 % (39.0-53.0) Mean Corpuscular Volume 97 fL (79-100) Mean Corpuscular Hemoglobin 32 pg (25-35) Mean Corpuscular Hemoglobin Concent 33 g/dL (31-37) Red Cell Distribution Width 14.6 % (11.5-14.5) H Platelet Count 241 x10^3/uL (140-400) Neutrophils (%) (Auto) 62 % (31-73) Lymphocytes (%) (Auto) 26 % (24-48) Monocytes (%) (Auto) 8 % (0-9) Eosinophils (%) (Auto) 3 % (0-3) Basophils (%) (Auto) 1 % (0-3) Neutrophils # (Auto) 4.5 x10^3uL (1.8-7.7) Lymphocytes # (Auto) 1.9 x10^3/uL (1.0-4.8) Monocytes # (Auto) 0.6 x10^3/uL (0.0-1.1) Eosinophils # (Auto) 0.2 x10^3/uL (0.0-0.7) Basophils # (Auto) 0.1 x10^3/uL (0.0-0.2) Urine Collection Type Unknown Urine Color Yellow Urine Clarity Clear Urine pH 5.[address] 1.015 Urine Protein Neg (NEG-TRACE) Urine Glucose (UA) Neg mg/dL (NEG) Urine Ketones (Stick) Neg mg/dL (NEG) Urine Blood Neg (NEG) Urine Nitrite Neg (NEG) Urine Bilirubin Neg (NEG) Urine Urobilinogen Dipstick 0.2 mg/dL (0.2 mg/dL) Urine Leukocyte Esterase Neg (NEG) Urine RBC Occ /HPF (0-2) Urine WBC 1-4 /HPF (0-4) Urine Squamous Epithelial Cells Occ /LPF Urine Bacteria 0 /HPF (0-FEW) Sodium Level 138 mmol/L (136-145) Potassium Level 3.9 mmol/L (3.5-5.1) Chloride Level 101 mmol/L (98-107) Carbon Dioxide Level 29 mmol/L (21-32) Anion Gap 8 (6-14) Blood Urea Nitrogen 19 mg/dL (8-26) Creatinine 1.2 mg/dL (0.7-1.3) Estimated GFR (Cockcroft-Gault) 59.5 BUN/Creatinine Ratio 16 (6-20) Glucose Level 174 mg/dL (70-99) H Calcium Level 8.5 mg/dL (8.5-10.1) Magnesium Level 2.0 mg/dL (1.8-2.4) Total Bilirubin 0.5 mg/dL (0.2-1.0) Aspartate Amino Transferase (AST) 40 U/L (15-37) H Alanine Aminotransferase (ALT) 34 U/L (16-63) Alkaline Phosphatase 130 U/L (46-116) H Total Protein 7.5 g/dL (6.4-8.2) Albumin 3.5 g/dL (3.4-5.0) Albumin/Globulin Ratio 0.9 (1.0-1.7) L Valproic Acid Level 21 mcg/mL (50-100) L Valproic Acid Last Dose Date 12/06/18 Valproic Acid Last Dose Time 0900 Current Medications: I have reviewed the current psychotropics carefully including drug interactions. Risk benefit ratio favors no change other than as noted in my dictated progress note. Diagnosis: Problems: (1) Dementia (2) Impulse control disorder (3) Anxiety disorder (4) Major depressive disorder, recurrent episode ELKIN MALDONADO MD Dec 06, 2018 22:18
[2018-12-07] MEDS ORDERED: MAG HYDROX/AL HYDROX/SIMETH 30 ML ORAL.SUSP PO PRN (00:15)
[2018-12-07] MEDS ORDERED: MAGNESIUM HYDROXIDE 2,400 MG/30 ML ORAL.SUSP. PO PRN (00:15)
[2018-12-07] MEDS ORDERED: METHYL SALICYLATE/MENTHOL TOPICAL OINTMENT 29GM TUBE. TP PRN (00:15)
[2018-12-07] MEDS ORDERED: ACETAMINOPHEN 325 MG TABLET PO PRN ×2 (00:15→00:30)
[2018-12-07] MEDS ORDERED: PECT2.8L3 MM (00:21)
[2018-12-07] MEDS ORDERED: LEVO75TA5 PO (00:21)
[2018-12-07] MEDS ORDERED: FINA5TAB4 PO (00:21)
[2018-12-07] MEDS ORDERED: LOPE2TAB27 PO (00:21)
[2018-12-07] MEDS ORDERED: GUAI-171 PO (00:21)
[2018-12-07] MEDS ORDERED: ALBU2.5V5 NEB (00:21)
[2018-12-07] MEDS ORDERED: CARV12.53 PO (00:21)
[2018-12-07] MEDS ORDERED: FURO80TA72 PO (00:21)
[2018-12-07] MEDS ORDERED: DIVA500T2 PO (00:21)
[2018-12-07] MEDS ORDERED: [UNRECOGNIZED DRUG - CODE] TP (00:21)
[2018-12-07] MEDS ORDERED: HYDR-3165 PO (00:21)
[2018-12-07] MEDS ORDERED: GUAI600T47 PO (00:21)
[2018-12-07] MEDS ORDERED: FERR325T14 PO (00:21)
[2018-12-07] MEDS ORDERED: BENZ9GEL3 MM (00:21)
[2018-12-07] MEDS ORDERED: CHOL10002 PO (00:21)
[2018-12-07] MEDS ORDERED: MENT118G TP (00:21)
[2018-12-07] MEDS ORDERED: DOCUSATE SODIUM 100 MG CAPSULE PO PRN (00:30)
[2018-12-07] MEDS ORDERED: guaiFENesin DM 600/30MG 1 TAB TAB.ER.12H PO PRN (00:30)
[2018-12-07] MEDS ORDERED: BENZOCAINE/MENTHOL LOZNGE 18'S BOX. MM PRN ×2 (00:30)
[2018-12-07] MEDS ORDERED: HYDROCORTISONE 2.5% RECTAL CREAM 30GM TUBE. RC PRN (00:30)
[2018-12-07] MEDS ORDERED: SODIUM CHLORIDE 0.65% NASAL SPRAY 45ML BOTTLE. NS PRN (00:30)
[2018-12-07] MEDS ORDERED: NON FORMULARY ITEM (Menthol (Biofreeze) 1 APP) TP PRN (00:30)
[2018-12-07] MEDS ORDERED: BENZOCAINE 20% ORAL GEL 11.9GM TUBE. MM PRN (00:30)
[2018-12-07] MEDS ORDERED: ALBUTEROL SULFATE 2.5 MG/3 ML NEBU. NEB PRN (00:30)
[2018-12-07] MEDS ORDERED: CALAMINE/ZINC OXIDE TOPICAL SUSPENSION 177ML BOTTLE. TP PRN (00:30)
[2018-12-07] MEDS ORDERED: HYDROcodone/APAP 5/325MG 1 TAB TABLET PO PRN (00:30)
[2018-12-07] MEDS: LEVOTHYROXINE 75 MCG TABLET PO SCH (05:46)
[2018-12-07 06:40] VITALS: BP 174/81
[2018-12-07] MEDS ORDERED: guaiFENesin DM 200MG/20MG 10 ML SYRUP PO PRN (07:45)
[2018-12-07] MEDS ORDERED: CITALOPRAM 20 MG TABLET. PO SCH (09:00)
[2018-12-07] MEDS ORDERED: POLYETHYLENE GLYCOL 3350 17 GM PACKET. PO PRN (09:00)
[2018-12-07] MEDS ORDERED: NON FORMULARY ITEM (Finasteride 5 MG) PO SCH (09:00)
[2018-12-07] MEDS ORDERED: CYANOCOBALAMIN (VITAMIN B-12) 1,000 MCG/ML VIAL IM SCH (09:00)
[2018-12-07] MEDS ORDERED: FUROSEMIDE 40 MG TABLET PO SCH (09:00)
[2018-12-07] MEDS ORDERED: LOPERAMIDE 2 MG CAPSULE PO PRN (09:00)
[2018-12-07] MEDS: TAMSULOSIN 0.4 MG CAP.ER.24H. PO SCH (10:08)
[2018-12-07] MEDS: FERROUS SULFATE 325 MG TABLET. PO SCH (10:08)
[2018-12-07] MEDS: FINASTERIDE 5 MG TABLET PO SCH (10:09)
[2018-12-07] MEDS: FAMOTIDINE 20 MG TABLET PO SCH ×2 (10:09→20:41)
[2018-12-07] MEDS: LISINOPRIL 20 MG TABLET PO SCH (10:09)
[2018-12-07] MEDS: ASPIRIN 325 MG TABLET PO SCH (10:10)
[2018-12-07] MEDS: ALLOPURINOL 100 MG TABLET. PO SCH ×2 (10:10→20:41)
[2018-12-07] MEDS: busPIRone 5 MG TABLET. PO SCH ×2 (10:10→20:41)
[2018-12-07] MEDS: POTASSIUM CHLORIDE 20 MEQ TABLET.ER. PO SCH (10:10)
[2018-12-07] MEDS: CHOLECALCIFEROL (VITAMIN D3) 1,000 UNIT TABLET PO SCH (10:10)
[2018-12-07] MEDS: CARVEDILOL 12.5 MG TABLET PO SCH ×2 (10:11→20:41)
[2018-12-07] MEDS: FUROSEMIDE 80 MG TABLET PO SCH (10:13)
[2018-12-07] MEDS: DIVALPROEX SODIUM 250 MG TABLET.DR. PO SCH ×3 (10:13→20:41)
[2018-12-07] MEDS: FLUTICASONE 50MCG/NASAL SPRAY 16GM BOTTLE. NS SCH (10:18)
[2018-12-07 14:16] LABS: TRIGLYCERIDES 713 mg/dL (0-150); VLDLC 142 mg/dL (0-40)
[2018-12-07 14:17] LABS: HDLC 22 mg/dL (40-60); THYROID STIM HORMONE (TSH) 4.145 uIU/mL (0.358-3.740)
[2018-12-07 15:54] VITALS: BP 120/64
[2018-12-07] MEDS ORDERED: HYDROcodone/APAP 7.5/325MG 1 TAB TABLET PO ONE (17:00)
[2018-12-07] MEDS: MELATONIN 3 MG TABLET PO SCH (20:42)
[2018-12-07] MEDS: ATORVASTATIN CALCIUM 10 MG TABLET. PO SCH (20:42)
--- NOTE | 2018-12-07 22:21 | PDOC ---
Exam Note: [facility] Note: Please also refer to the separate dictated note~for this date of service dictated separately.~Patient seen individually. Discussed the patient with Nursing staff reviewed the chart.~Reviewed interim history and current functioning. Reviewed vital signs,~Labs/ Radiology~and current medications noted below. Continue current treatment with the changes noted in the dictated addendum note Assessment: Vital Signs/I&O: Vital Signs Date Time Temp Pulse Resp B/P (MAP) Pulse Ox O2 Delivery O2 Flow Rate FiO2 12/07/18 20:41 83 120/64 12/07/18 15:54 98.6 16 94 12/06/18 21:00 Room Air I & O 12/06/18 12/06/18 12/07/18 15:00 23:00 07:00 Intake Total 120 ml Balance 120 ml Current Medications: Meds: Current Medications Medications (Trade) Dose Ordered Sig/Maurizio Route PRN Reason Start Time Stop Time Status Last Admin Dose Admin Aspirin (Roberta Aspirin) 325 mg DAILYWBKFT PO 12/07/18 08:00 12/07/18 10:10 Vitamin D (Vitamin D3) 1,000 unit DAILY PO 12/07/18 09:00 12/07/18 10:10 Cyanocobalamin (Vitamin B-12) 1,000 mcg QMONTH IM 12/07/18 09:00 12/07/18 10:16 Ferrous Sulfate (Feosol) 325 mg DAILY PO 12/07/18 09:00 12/07/18 10:08 Levothyroxine Sodium (Synthroid) 75 mcg DAILY06 PO 12/07/18 06:00 12/07/18 05:46 Potassium Chloride (Klor-Con) 20 meq DAILYWBKFT PO 12/07/18 08:00 12/07/18 10:10 Tamsulosin HCl (Flomax) 0.4 mg DAILY PO 12/07/18 09:00 12/07/18 10:08 Allopurinol (Zyloprim) 100 mg BID PO 12/07/18 09:00 12/07/18 20:41 Atorvastatin Calcium (Lipitor) 10 mg QHS PO 12/07/18 21:00 12/07/18 20:42 Buspirone HCl (Buspar) 5 mg BID PO 12/07/18 09:00 12/07/18 20:41 Carvedilol (Coreg) 12.5 mg BID PO 12/07/18 09:00 12/07/18 20:41 Divalproex Sodium (Depakote) 250 mg DAILY PO 12/07/18 09:00 12/07/18 10:13 Divalproex Sodium (Depakote) 500 mg BID PO 12/07/18 09:00 12/07/18 20:41 Citalopram Hydrobromide (CeleXA) 20 mg DAILY PO 12/07/18 09:00 12/07/18 17:38 DC 12/07/18 10:10 Famotidine (Pepcid) 20 mg BID PO 12/07/18 09:00 12/07/18 20:41 Finasteride (Proscar) 5 mg DAILY PO 12/07/18 09:00 12/07/18 10:09 Fluticasone Propionate (Flonase) 2 spray DAILY NS 12/07/18 09:00 12/07/18 10:18 Furosemide (Lasix) 80 mg DAILY PO 12/07/18 09:00 12/07/18 10:13 Acetaminophen/ Hydrocodone Bitart (Lortab 5/325) 1 tab PRN Q6HRS PRN PO PAIN 12/07/18 00:30 12/07/18 16:53 DC 12/07/18 11:00 Lisinopril (Prinivil) 40 mg DAILY PO 12/07/18 09:00 12/07/18 10:09 Melatonin 3 mg QHS PO 12/07/18 21:00 12/07/18 20:42 Acetaminophen/ Hydrocodone Bitart (Lortab 7.5/325) 1 tab 1X ONCE PO 12/07/18 17:00 12/07/18 17:01 DC 12/07/18 18:38 I have reviewed the current psychotropics carefully including drug interactions. Risk benefit ratio favors no change other than as noted in my dictated progress note. Diagnosis: Problems: (1) Dementia (2) Impulse control disorder (3) Anxiety disorder (4) Major depressive disorder, recurrent episode ELKIN MALDONADO MD Dec 07, 2018 22:21
[2018-12-08 00:08] LABS: HEMOGLOBIN A1C 5.7 % (4.8-5.6)
--- NOTE | 2018-12-08 02:58 | CONS ---
DATE OF CONSULTATION: 12/06/2018 HISTORY OF PRESENT ILLNESS: We were asked to see the patient for medical consultation evaluation. The patient is a very pleasant 73-year-old gentleman who has been residing at [facility]. He is very appropriate and pleasant this morning, but there is a history of confusion and agitation. He was sent here for further evaluation. He is very pleasant and could not give much detail. 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 He is morbidly obese. His knees are giving him a problem. He ambulates independently with the help of a walker. PAST MEDICAL HISTORY: Significant for dementia, impulse control disorder, generalized anxiety disorder, and major recurrent depression. CURRENT MEDICATIONS: Include Tylenol, Mylanta, Ventolin, Zyloprim, aspirin, Lipitor, BuSpar, calamine lotion, Coreg, Celexa, vitamin B12, Voltaren p.r.n., Depakote, Colace, Pepcid, Feosol, Proscar, Flonase, Lasix, Robitussin, Lortab p.r.n., Synthroid, Prinivil, Imodium, milk of magnesia, melatonin, MiraLax, potassium, Flomax, and vitamin D3. ALLERGIES: He has no recorded drug allergy. SOCIAL HISTORY: Nonsmoker, nondrinker. FAMILY HISTORY: Unobtainable. REVIEW OF SYSTEMS: Significant for the psychiatric issues. He is comfortable. He has no complaints of nausea, vomiting or diarrhea. All other systems reviewed and determined to be negative. PHYSICAL EXAMINATION: GENERAL: When I saw him, this is a pleasant elderly gentleman. He is a very whiting and has significant morbid obesity. He has degenerative arthritis and ambulates with a walker independently. VITAL SIGNS: Here showed a blood pressure of 125/57, pulse is 73 and regular. He was afebrile. HEENT: Pupils are reactive. Sclerae are nonicteric. Oropharynx is clear. NECK: Supple. No bruits identified. LUNGS: Otherwise clear. CARDIOVASCULAR: Showed distant heart tones. No obvious gallops. Peripheral pulses are palpable. ABDOMEN: Obese, protuberant. No organomegaly. Bowel sounds were hypoactive. EXTREMITIES: Show 2+ pitting edema. NEUROLOGIC: The patient is alert. He has difficulties with ambulation with the help of a walker. He has no focal deficit. Speech is fluent. The patient is pleasantly confused. SKIN: Warm and dry without any lymphadenopathy or lymphangitis. LABORATORY DATA: His hemoglobin is maintained at 14.8 g/dL with white count of 7200. His electrolytes are within normal range. Creatinine is 1.2 percent, nonfasting blood sugar 170. ASSESSMENT: 1. This 73-year-old gentleman who has had underlying dementia and he has multiple other medical issues, mainly degenerative arthritis related to his body habitus. He also has some hypertension and some mildly elevated blood sugar. 2. Degenerative arthritis. 3. Morbid obesity. RECOMMENDATIONS: 1. I reviewed his medicines we should continue them as prescribed. 2. He is stable from a medical standpoint. Thank you again for asking to see the patient in consultation, which shall gladly follow along during the course of this inpatient stay. ADE GLEZ MD DR: NERY/jersey JOB#: [id number] / [id number] SHIRIN Jacobson MD
[2018-12-08] MEDS: LEVOTHYROXINE 75 MCG TABLET PO SCH (05:41)
[2018-12-08 06:18] VITALS: BP 130/75
[2018-12-08] MEDS: DIVALPROEX SODIUM 250 MG TABLET.DR. PO SCH ×3 (10:50→19:40)
[2018-12-08] MEDS: busPIRone 5 MG TABLET. PO SCH ×2 (10:50→19:40)
[2018-12-08] MEDS: CHOLECALCIFEROL (VITAMIN D3) 1,000 UNIT TABLET PO SCH (10:50)
[2018-12-08] MEDS: FERROUS SULFATE 325 MG TABLET. PO SCH (10:50)
[2018-12-08] MEDS: TAMSULOSIN 0.4 MG CAP.ER.24H. PO SCH (10:50)
[2018-12-08] MEDS: FINASTERIDE 5 MG TABLET PO SCH (10:50)
[2018-12-08] MEDS: ASPIRIN 325 MG TABLET PO SCH (10:50)
[2018-12-08] MEDS: HYDROcodone/APAP 7.5/325MG 1 TAB TABLET PO PRN (10:51)
[2018-12-08] MEDS: CARVEDILOL 12.5 MG TABLET PO SCH ×2 (10:51→19:40)
[2018-12-08] MEDS: FAMOTIDINE 20 MG TABLET PO SCH ×2 (10:51→19:40)
[2018-12-08] MEDS: FUROSEMIDE 80 MG TABLET PO SCH (10:51)
[2018-12-08] MEDS: POTASSIUM CHLORIDE 20 MEQ TABLET.ER. PO SCH (10:51)
[2018-12-08] MEDS: ALLOPURINOL 100 MG TABLET. PO SCH ×2 (10:51→19:40)
[2018-12-08] MEDS: LISINOPRIL 20 MG TABLET PO SCH (10:52)
--- NOTE | 2018-12-08 11:06 | EKG ---
[address] [address] Test Date: 2018-12-06 Test Time: 20:01:20 Pat Name: NAYELI PERAZA Department: Room: [address] [place] [address] Gender: M [employer] Consultant: : 1945 Requested By: NIDA BLANDON Order Number: [id number] Reading MD: Richardson Dasilva MD Measurements Intervals [place] Rate: 66 P: 68 MN: 178 QRS: 81 QRSD: 94 T: 47 QT: 426 QTc: 448 Interpretive Statements SINUS RHYTHM Electronically Signed On 12-27-2018 10:33:56 CDT by Richardson Dasilva MD
[2018-12-08] MEDS: FLUTICASONE 50MCG/NASAL SPRAY 16GM BOTTLE. NS SCH (11:12)
[2018-12-08] MEDS: SERTRALINE 50 MG TABLET. PO SCH (11:12)
[2018-12-08] MEDS: DICLOFENAC SODIUM 1% TOPICAL GEL 100GM TUBE. TP PRN (13:20)
[2018-12-08 16:23] VITALS: BP 113/68
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
[2018-12-08] MEDS: MELATONIN 3 MG TABLET PO SCH (19:39)
[2018-12-08] MEDS: ATORVASTATIN CALCIUM 10 MG TABLET. PO SCH (19:40)
--- NOTE | 2018-12-08 22:31 | PDOC ---
Exam Note: [facility] Note: Please also refer to the separate dictated note~for this date of service dictated separately.~Patient seen individually. Discussed the patient with Nursing staff reviewed the chart.~Reviewed interim history and current functioning. Reviewed vital signs,~Labs/ Radiology~and current medications noted below. Continue current treatment with the changes noted in the dictated addendum note Assessment: Vital Signs/I&O: Vital Signs Date Time Temp Pulse Resp B/P (MAP) Pulse Ox O2 Delivery O2 Flow Rate FiO2 12/08/18 19:40 64 113/68 12/08/18 16:23 98.0 17 92 Room Air I & O 12/07/18 12/07/18 12/08/18 15:00 23:00 07:00 Intake Total 720 ml 480 ml Balance 720 ml 480 ml Current Medications: Meds: Current Medications Medications (Trade) Dose Ordered Sig/Maurizio Route PRN Reason Start Time Stop Time Status Last Admin Dose Admin Sertraline HCl (Zoloft) 50 mg DAILY PO 12/08/18 09:00 12/08/18 11:12 I have reviewed the current psychotropics carefully including drug interactions. Risk benefit ratio favors no change other than as noted in my dictated progress note. Diagnosis: Problems: (1) Dementia (2) Impulse control disorder (3) Anxiety disorder (4) Major depressive disorder, recurrent episode (5) Psychotic disorder (6) Mild cognitive impairment ELKIN MALDONADO MD Dec 08, 2018 22:31
--- NOTE | 2018-12-09 00:50 | PN ---
DATE: 12/08/2018 PSYCHIATRIC PROGRESS NOTE This note covers elements not covered in my initial note 12/08/2018. SUBJECTIVE: The patient was seen individually and staffed at a treatment team meeting with the entire team in the morning of 12/08/2018. The patient slept about 4 hours previous night. Appetite 75%. At the treatment team meeting, we addressed at length circumstances prompting admission, reviewed his past records as well. The patient remains somewhat anxious, restless, minimizes most of the problems prompting admission. He is somewhat impulsive. REVIEW OF SYSTEMS: No CV, , pulmonary, eye, ENT system symptoms on review. MENTAL STATUS EXAM: Oriented to himself and situation. Speech is coherent, abstraction fair, computation impaired, language function intact, attention span short. Mood and affect remain somewhat anxious and labile. LABORATORY DATA: Reviewed. IMPRESSION: Bipolar 1 disorder, mixed; anxiety disorder, unspecified; impulse control disorder; major depressive disorder, rule out psychotic features. PLAN: Continue current psychotropics. Check CBC, CMP, valproic acid level on 12/09/2018. Adjust Depakote to reach a therapeutic level. May need to increase BuSpar and Zoloft for his anxiety and mood symptoms. Make further adjustments as clinically indicated. ELKIN MALDONADO MD DR: JOSEPHINE/jersey JOB#: [id number] / [id number]
[2018-12-09] MEDS: LEVOTHYROXINE 75 MCG TABLET PO SCH (05:37)
[2018-12-09] MEDS: HYDROcodone/APAP 7.5/325MG 1 TAB TABLET PO PRN (06:01)
[2018-12-09 06:27] VITALS: BP 118/84
[2018-12-09 07:21] LABS: BASO % 1 % (0-3); EOS # 0.2 x10^3/uL (0.0-0.7); EOS % 4 % (0-3); HEMATOCRIT 40.9 % (39.0-53.0); HEMOGLOBIN 13.3 g/dL (13.0-17.5); LYMPH # 1.7 x10^3/uL (1.0-4.8); LYMPH % 29 % (24-48); MEAN CORPUSCULAR HEMOGLOBIN 31 pg (25-35); MEAN CORPUSCULAR HGB CONC 33 g/dL (31-37); MEAN CORPUSCULAR VOLUME 97 fL (79-100); MONO # 0.6 x10^3/uL (0.0-1.1); MONO % 10 % (0-9); NEUT # 3.4 x10^3uL (1.8-7.7); NEUT % 57 % (31-73); PLATELET COUNT 207 x10^3/uL (140-400); RED BLOOD COUNT 4.22 x10^6/uL (4.30-5.70); RED CELL DISTRIBUTION WIDTH 14.9 % (11.5-14.5); WHITE BLOOD COUNT 5.9 x10^3/uL (4.0-11.0)
[2018-12-09] MEDS: FINASTERIDE 5 MG TABLET PO SCH (08:01)
[2018-12-09] MEDS: ASPIRIN 325 MG TABLET PO SCH (08:01)
[2018-12-09] MEDS: DIVALPROEX SODIUM 250 MG TABLET.DR. PO SCH ×3 (08:01→19:35)
[2018-12-09] MEDS: CHOLECALCIFEROL (VITAMIN D3) 1,000 UNIT TABLET PO SCH (08:02)
[2018-12-09] MEDS: ALLOPURINOL 100 MG TABLET. PO SCH ×2 (08:02→19:35)
[2018-12-09] MEDS: FAMOTIDINE 20 MG TABLET PO SCH ×2 (08:02→19:35)
[2018-12-09] MEDS: LISINOPRIL 20 MG TABLET PO SCH (08:02)
[2018-12-09] MEDS: SERTRALINE 50 MG TABLET. PO SCH (08:02)
[2018-12-09] MEDS: busPIRone 5 MG TABLET. PO SCH (08:03)
[2018-12-09] MEDS: POTASSIUM CHLORIDE 20 MEQ TABLET.ER. PO SCH (08:04)
[2018-12-09] MEDS: FERROUS SULFATE 325 MG TABLET. PO SCH (08:04)
[2018-12-09] MEDS: CARVEDILOL 12.5 MG TABLET PO SCH ×2 (08:04→19:34)
[2018-12-09] MEDS: TAMSULOSIN 0.4 MG CAP.ER.24H. PO SCH (08:04)
[2018-12-09] MEDS: FUROSEMIDE 80 MG TABLET PO SCH (08:04)
[2018-12-09] MEDS: FLUTICASONE 50MCG/NASAL SPRAY 16GM BOTTLE. NS SCH (08:06)
[2018-12-09 08:10] LABS: ALBUMIN 3.1 g/dL (3.4-5.0); ALBUMIN/GLOBULIN RATIO 0.9 (1.0-1.7); ALK PHOS 108 U/L (46-116); ALT (SGPT) 31 U/L (16-63); AST (SGOT) 41 U/L (15-37); BLOOD UREA NITROGEN 31 mg/dL (8-26); BUN/CREATININE RATIO 22 (6-20); CALCIUM 8.4 mg/dL (8.5-10.1); CREATININE 1.4 mg/dL (0.7-1.3); GFR 49.8; GLUCOSE 94 mg/dL (70-99); TOTAL BILIRUBIN 0.5 mg/dL (0.2-1.0); TOTAL PROTEIN 6.6 g/dL (6.4-8.2)
[2018-12-09 08:11] LABS: ANION GAP 8 (6-14); CARBON DIOXIDE 29 mmol/L (21-32); CHLORIDE 105 mmol/L (98-107); POTASSIUM 4.4 mmol/L (3.5-5.1); SODIUM 142 mmol/L (136-145); VAL ACID 58 mcg/mL (50-100)
[2018-12-09 16:29] VITALS: BP 105/54
[2018-12-09] MEDS ORDERED: busPIRone 10 MG TABLET. PO PRN (17:00)
[2018-12-09] MEDS: MELATONIN 3 MG TABLET PO SCH (19:34)
[2018-12-09] MEDS: ATORVASTATIN CALCIUM 10 MG TABLET. PO SCH (19:35)
--- NOTE | 2018-12-09 22:26 | PDOC ---
Exam Note: [facility] Note: Please also refer to the separate dictated note~for this date of service dictated separately.~Patient seen individually. Discussed the patient with Nursing staff reviewed the chart.~Reviewed interim history and current functioning. Reviewed vital signs,~Labs/ Radiology~and current medications noted below. Continue current treatment with the changes noted in the dictated addendum note Assessment: Vital Signs/I&O: Vital Signs Date Time Temp Pulse Resp B/P (MAP) Pulse Ox O2 Delivery O2 Flow Rate FiO2 12/09/18 19:34 61 105/54 12/09/18 16:29 97.9 20 92 12/09/18 06:27 Room Air I & O 12/08/18 12/08/18 12/09/18 14:59 22:59 06:59 Intake Total 480 ml 240 ml 240 ml Balance 480 ml 240 ml 240 ml Labs: Laboratory Tests Test 12/09/18 07:06 White Blood Count 5.9 x10^3/uL (4.0-11.0) Red Blood Count 4.22 x10^6/uL (4.30-5.70) L Hemoglobin 13.3 g/dL (13.0-17.5) Hematocrit 40.9 % (39.0-53.0) Mean Corpuscular Volume 97 fL (79-100) Mean Corpuscular Hemoglobin 31 pg (25-35) Mean Corpuscular Hemoglobin Concent 33 g/dL (31-37) Red Cell Distribution Width 14.9 % (11.5-14.5) H Platelet Count 207 x10^3/uL (140-400) Neutrophils (%) (Auto) 57 % (31-73) Lymphocytes (%) (Auto) 29 % (24-48) Monocytes (%) (Auto) 10 % (0-9) H Eosinophils (%) (Auto) 4 % (0-3) H Basophils (%) (Auto) 1 % (0-3) Neutrophils # (Auto) 3.4 x10^3uL (1.8-7.7) Lymphocytes # (Auto) 1.7 x10^3/uL (1.0-4.8) Monocytes # (Auto) 0.6 x10^3/uL (0.0-1.1) Eosinophils # (Auto) 0.2 x10^3/uL (0.0-0.7) Basophils # (Auto) 0.0 x10^3/uL (0.0-0.2) Sodium Level 142 mmol/L (136-145) Potassium Level 4.4 mmol/L (3.5-5.1) Chloride Level 105 mmol/L (98-107) Carbon Dioxide Level 29 mmol/L (21-32) Anion Gap 8 (6-14) Blood Urea Nitrogen 31 mg/dL (8-26) H Creatinine 1.4 mg/dL (0.7-1.3) H Estimated GFR (Cockcroft-Gault) 49.8 BUN/Creatinine Ratio 22 (6-20) H Glucose Level 94 mg/dL (70-99) Calcium Level 8.4 mg/dL (8.5-10.1) L Total Bilirubin 0.5 mg/dL (0.2-1.0) Aspartate Amino Transferase (AST) 41 U/L (15-37) H Alanine Aminotransferase (ALT) 31 U/L (16-63) Alkaline Phosphatase 108 U/L (46-116) Total Protein 6.6 g/dL (6.4-8.2) Albumin 3.1 g/dL (3.4-5.0) L Albumin/Globulin Ratio 0.9 (1.0-1.7) L Valproic Acid Level 58 mcg/mL (50-100) Valproic Acid Last Dose Date 12/08/2018 Valproic Acid Last Dose Time 2100 Current Medications: I have reviewed the current psychotropics carefully including drug interactions. Risk benefit ratio favors no change other than as noted in my dictated progress note. Diagnosis: Problems: (1) Dementia (2) Impulse control disorder (3) Anxiety disorder (4) Major depressive disorder, recurrent episode (5) Psychotic disorder (6) Degenerative arthritis (7) Mild cognitive impairment ELKIN MALDONADO MD Dec 09, 2018 22:26
--- NOTE | 2018-12-10 01:55 | PN ---
DATE: 12/07/2018 PSYCHIATRIC PROGRESS NOTE This late entry 12/07/2018 covers elements not covered in my. DICTATION ENDS HERE. ELKIN MALDONADO MD DR: Sherrell JOB#: [id number] / [id number]
[2018-12-10] MEDS: LEVOTHYROXINE 75 MCG TABLET PO SCH (05:45)
[2018-12-10 06:22] VITALS: BP 114/72
[2018-12-10] MEDS: DIVALPROEX SODIUM 250 MG TABLET.DR. PO SCH ×3 (08:26→21:06)
[2018-12-10] MEDS: LISINOPRIL 20 MG TABLET PO SCH (08:27)
[2018-12-10] MEDS: ALLOPURINOL 100 MG TABLET. PO SCH ×2 (08:27→21:06)
[2018-12-10] MEDS: FERROUS SULFATE 325 MG TABLET. PO SCH (08:27)
[2018-12-10] MEDS: CARVEDILOL 12.5 MG TABLET PO SCH ×2 (08:27→21:07)
[2018-12-10] MEDS: SERTRALINE 50 MG TABLET. PO SCH (08:27)
[2018-12-10] MEDS: FINASTERIDE 5 MG TABLET PO SCH (08:27)
[2018-12-10] MEDS: TAMSULOSIN 0.4 MG CAP.ER.24H. PO SCH (08:28)
[2018-12-10] MEDS: ASPIRIN 325 MG TABLET PO SCH (08:28)
[2018-12-10] MEDS: CHOLECALCIFEROL (VITAMIN D3) 1,000 UNIT TABLET PO SCH (08:28)
[2018-12-10] MEDS: FUROSEMIDE 80 MG TABLET PO SCH (08:28)
[2018-12-10] MEDS: FAMOTIDINE 20 MG TABLET PO SCH ×2 (08:28→21:06)
[2018-12-10] MEDS: POTASSIUM CHLORIDE 20 MEQ TABLET.ER. PO SCH (08:28)
[2018-12-10] MEDS: FLUTICASONE 50MCG/NASAL SPRAY 16GM BOTTLE. NS SCH (08:29)
[2018-12-10] MEDS: HYDROcodone/APAP 7.5/325MG 1 TAB TABLET PO PRN (10:29)
[2018-12-10 16:02] VITALS: BP 121/79
[2018-12-10] MEDS: MELATONIN 3 MG TABLET PO SCH (21:06)
[2018-12-10] MEDS: ATORVASTATIN CALCIUM 10 MG TABLET. PO SCH (21:07)
--- NOTE | 2018-12-10 23:11 | PDOC ---
Exam Note: [facility] Note: Please also refer to the separate dictated note~for this date of service dictated separately.~Patient seen individually. Discussed the patient with Nursing staff reviewed the chart.~Reviewed interim history and current functioning. Reviewed vital signs,~Labs/ Radiology~and current medications noted below. Continue current treatment with the changes noted in the dictated addendum note Assessment: Vital Signs/I&O: Vital Signs Date Time Temp Pulse Resp B/P (MAP) Pulse Ox O2 Delivery O2 Flow Rate FiO2 12/10/18 21:07 62 121/79 12/10/18 16:02 98.0 20 97 12/09/18 06:27 Room Air I & O 12/09/18 12/09/18 12/10/18 15:00 23:00 07:00 Intake Total 960 ml 600 ml Balance 960 ml 600 ml Current Medications: I have reviewed the current psychotropics carefully including drug interactions. Risk benefit ratio favors no change other than as noted in my dictated progress note. Diagnosis: Problems: (1) Dementia (2) Impulse control disorder (3) Anxiety disorder (4) Major depressive disorder, recurrent episode (5) Psychotic disorder (6) Mild cognitive impairment (7) Degenerative arthritis (8) Morbid obesity ELKIN MALDONADO MD Dec 10, 2018 23:11
[2018-12-11] MEDS: LEVOTHYROXINE 75 MCG TABLET PO SCH (05:39)
[2018-12-11 06:26] VITALS: BP 116/64
[2018-12-11] MEDS: FLUTICASONE 50MCG/NASAL SPRAY 16GM BOTTLE. NS SCH (07:38)
[2018-12-11] MEDS: POTASSIUM CHLORIDE 20 MEQ TABLET.ER. PO SCH (07:38)
[2018-12-11] MEDS: ASPIRIN 325 MG TABLET PO SCH (07:38)
[2018-12-11] MEDS: FERROUS SULFATE 325 MG TABLET. PO SCH (07:39)
[2018-12-11] MEDS: DIVALPROEX SODIUM 250 MG TABLET.DR. PO SCH ×3 (07:39→21:00)
[2018-12-11] MEDS: CARVEDILOL 12.5 MG TABLET PO SCH ×2 (07:39→21:00)
[2018-12-11] MEDS: FUROSEMIDE 80 MG TABLET PO SCH (07:40)
[2018-12-11] MEDS: FAMOTIDINE 20 MG TABLET PO SCH ×2 (07:40→21:00)
[2018-12-11] MEDS: TAMSULOSIN 0.4 MG CAP.ER.24H. PO SCH (07:40)
[2018-12-11] MEDS: SERTRALINE 50 MG TABLET. PO SCH (07:41)
[2018-12-11] MEDS: CHOLECALCIFEROL (VITAMIN D3) 1,000 UNIT TABLET PO SCH (07:41)
[2018-12-11] MEDS: FINASTERIDE 5 MG TABLET PO SCH (07:41)
[2018-12-11] MEDS: LISINOPRIL 20 MG TABLET PO SCH (07:41)
[2018-12-11] MEDS: ALLOPURINOL 100 MG TABLET. PO SCH ×2 (07:42→21:00)
[2018-12-11] MEDS: HYDROcodone/APAP 7.5/325MG 1 TAB TABLET PO PRN ×2 (08:56→21:45)
[2018-12-11 16:23] VITALS: BP 144/75
[2018-12-11] MEDS: MELATONIN 3 MG TABLET PO SCH (21:00)
[2018-12-11] MEDS: ATORVASTATIN CALCIUM 10 MG TABLET. PO SCH (21:00)
--- NOTE | 2018-12-11 22:17 | PDOC ---
Exam Note: [facility] Note: Please also refer to the separate dictated note~for this date of service dictated separately.~Patient seen individually. Discussed the patient with Nursing staff reviewed the chart.~Reviewed interim history and current functioning. Reviewed vital signs,~Labs/ Radiology~and current medications noted below. Continue current treatment with the changes noted in the dictated addendum note Assessment: Vital Signs/I&O: Vital Signs Date Time Temp Pulse Resp B/P (MAP) Pulse Ox O2 Delivery O2 Flow Rate FiO2 12/11/18 21:00 67 144/75 12/11/18 16:23 97.7 16 93 Room Air I & O 12/10/18 12/10/18 12/11/18 15:00 23:00 07:00 Intake Total 720 ml 360 ml 360 ml Balance 720 ml 360 ml 360 ml Current Medications: I have reviewed the current psychotropics carefully including drug interactions. Risk benefit ratio favors no change other than as noted in my dictated progress note. Diagnosis: Problems: (1) Dementia (2) Impulse control disorder (3) Anxiety disorder (4) Major depressive disorder, recurrent episode (5) Psychotic disorder (6) Mild cognitive impairment (7) Degenerative arthritis ELKIN MALDONADO MD Dec 11, 2018 22:17
--- NOTE | 2018-12-12 05:31 | PN ---
DATE: 12/09/2018 PSYCHIATRIC PROGRESS NOTE This late entry 12/09/2018 covers elements not covered in my initial note. SUBJECTIVE: I met with the patient in the evening of 12/09/2018. The patient slept 5 hours previous night. He remains a little anxious, but appropriate. Valproic acid level therapeutic at 58. REVIEW OF SYSTEMS: No CV, , pulmonary, eye, ENT system symptoms on review. MENTAL STATUS EXAM: Oriented reasonably. Speech is coherent, abstraction fair, computation impaired, language function intact, attention span short. Mood and affect is improved. LABORATORY DATA: Reviewed. IMPRESSION: Unchanged from initial note. The patient slept 5 hours. Valproic acid level therapeutic at 58. PLAN: We will increase BuSpar from 5 mg b.i.d. to 10 mg b.i.d. Rest unchanged for now. MAN Rodolfo MALDONADO MD DR: JOSEPHINE/jersey JOB#: [id number] / [id number]
[2018-12-12 05:58] VITALS: BP 126/54
[2018-12-12] MEDS: LEVOTHYROXINE 75 MCG TABLET PO SCH (06:33)
[2018-12-12] MEDS: ASPIRIN 325 MG TABLET PO SCH (08:16)
[2018-12-12] MEDS: FLUTICASONE 50MCG/NASAL SPRAY 16GM BOTTLE. NS SCH (08:16)
[2018-12-12] MEDS: POTASSIUM CHLORIDE 20 MEQ TABLET.ER. PO SCH (08:16)
[2018-12-12] MEDS: CARVEDILOL 12.5 MG TABLET PO SCH ×2 (08:17→20:33)
[2018-12-12] MEDS: DIVALPROEX SODIUM 250 MG TABLET.DR. PO SCH ×3 (08:17→20:33)
[2018-12-12] MEDS: FERROUS SULFATE 325 MG TABLET. PO SCH (08:19)
[2018-12-12] MEDS: TAMSULOSIN 0.4 MG CAP.ER.24H. PO SCH (08:19)
[2018-12-12] MEDS: FAMOTIDINE 20 MG TABLET PO SCH ×2 (08:19→20:32)
[2018-12-12] MEDS: FUROSEMIDE 80 MG TABLET PO SCH (08:20)
[2018-12-12] MEDS: LISINOPRIL 20 MG TABLET PO SCH (08:21)
[2018-12-12] MEDS: FINASTERIDE 5 MG TABLET PO SCH (08:21)
[2018-12-12] MEDS: ALLOPURINOL 100 MG TABLET. PO SCH ×2 (08:22→20:33)
[2018-12-12] MEDS: SERTRALINE 50 MG TABLET. PO SCH (08:22)
[2018-12-12] MEDS: CHOLECALCIFEROL (VITAMIN D3) 1,000 UNIT TABLET PO SCH (08:22)
[2018-12-12] MEDS: HYDROcodone/APAP 7.5/325MG 1 TAB TABLET PO PRN ×2 (14:56→20:45)
[2018-12-12 15:48] VITALS: BP 122/61
[2018-12-12] MEDS: ATORVASTATIN CALCIUM 10 MG TABLET. PO SCH (20:33)
[2018-12-12] MEDS: MELATONIN 3 MG TABLET PO SCH (20:33)
--- NOTE | 2018-12-12 21:13 | PDOC ---
Exam Note: [facility] Note: Please also refer to the separate dictated note~for this date of service dictated separately.~Patient seen individually. Discussed the patient with Nursing staff reviewed the chart.~Reviewed interim history and current functioning. Reviewed vital signs,~Labs/ Radiology~and current medications noted below. Continue current treatment with the changes noted in the dictated addendum note Assessment: Vital Signs/I&O: Vital Signs Date Time Temp Pulse Resp B/P (MAP) Pulse Ox O2 Delivery O2 Flow Rate FiO2 12/12/18 20:45 Room Air 12/12/18 20:33 65 122/61 12/12/18 15:48 97.2 20 91 I & O 12/11/18 12/11/18 12/12/18 15:00 23:00 07:00 Intake Total 840 ml 840 ml Balance 840 ml 840 ml Current Medications: I have reviewed the current psychotropics carefully including drug interactions. Risk benefit ratio favors no change other than as noted in my dictated progress note. Diagnosis: Problems: (1) Dementia (2) Impulse control disorder (3) Anxiety disorder (4) Major depressive disorder, recurrent episode (5) Psychotic disorder (6) Mild cognitive impairment (7) Degenerative arthritis ELKIN MALDONADO MD Dec 12, 2018 21:13
--- NOTE | 2018-12-12 23:26 | PN ---
DATE: 12/11/2018 PSYCHIATRIC PROGRESS NOTE This late entry 12/11/2018 covers elements not covered in my initial note. SUBJECTIVE: I met with the patient in the evening of 12/11/2018. The patient slept 6-1/2 hours previous night. Overall, he has been cooperative, not agitated, aggressive, less obsessive. REVIEW OF SYSTEMS: No CV, , pulmonary, eye, ENT system symptoms on review. MENTAL STATUS EXAM: Reasonably oriented. Speech is coherent, abstraction fair, computation impaired, language function intact, attention span short. Mood and affect is improved. LABORATORY DATA: Reviewed. IMPRESSION: Unchanged from initial note. PLAN: No change from initial note. CBC, CMP, valproic acid level will be checked on 12/14/2018. MAN Rodolfo MALDONADO MD DR: JOSEPHINE/jersey JOB#: [id number] / [id number]
--- NOTE | 2018-12-13 03:29 | PN ---
DATE: 12/10/2018 PSYCHIATRIC PROGRESS NOTE This late entry 12/10/2018 covers elements not covered in my initial note. SUBJECTIVE: I met with the patient in the evening of 12/10/2018. The patient slept 6-1/4 hours previous night. He has been fairly appropriate, not agitated, aggressive. REVIEW OF SYSTEMS: No CV, , pulmonary, eye, ENT system symptoms on review. MENTAL STATUS EXAM: Reasonably oriented. Speech is coherent, abstraction fair, computation impaired, language function intact, attention span fair. Mood and affect is improved. LABORATORY DATA: Reviewed. IMPRESSION: Unchanged from initial note. PLAN: No change from initial note. ELKIN MALDONADO MD DR: JOSEPHINE/jersey JOB#: [id number] / [id number]
[2018-12-13 05:45] VITALS: BP 100/55
[2018-12-13 05:46] VITALS: BP 100/55
[2018-12-13] MEDS: LEVOTHYROXINE 75 MCG TABLET PO SCH (06:01)
[2018-12-13] MEDS: DIVALPROEX SODIUM 250 MG TABLET.DR. PO SCH ×3 (08:23→19:51)
[2018-12-13] MEDS: FLUTICASONE 50MCG/NASAL SPRAY 16GM BOTTLE. NS SCH (08:23)
[2018-12-13] MEDS: TAMSULOSIN 0.4 MG CAP.ER.24H. PO SCH (08:24)
[2018-12-13] MEDS: ASPIRIN 325 MG TABLET PO SCH (08:24)
[2018-12-13] MEDS: FINASTERIDE 5 MG TABLET PO SCH (08:24)
[2018-12-13] MEDS: FAMOTIDINE 20 MG TABLET PO SCH ×2 (08:24→19:51)
[2018-12-13] MEDS: FUROSEMIDE 80 MG TABLET PO SCH (08:24)
[2018-12-13] MEDS: CHOLECALCIFEROL (VITAMIN D3) 1,000 UNIT TABLET PO SCH (08:24)
[2018-12-13] MEDS: LISINOPRIL 20 MG TABLET PO SCH (08:25)
[2018-12-13] MEDS: POTASSIUM CHLORIDE 20 MEQ TABLET.ER. PO SCH (08:25)
[2018-12-13] MEDS: FERROUS SULFATE 325 MG TABLET. PO SCH (08:25)
[2018-12-13] MEDS: SERTRALINE 50 MG TABLET. PO SCH (08:25)
[2018-12-13] MEDS: ALLOPURINOL 100 MG TABLET. PO SCH ×2 (08:25→19:51)
[2018-12-13] MEDS: CARVEDILOL 12.5 MG TABLET PO SCH ×2 (08:25→19:51)
[2018-12-13] MEDS: HYDROcodone/APAP 7.5/325MG 1 TAB TABLET PO PRN ×3 (08:54→21:38)
[2018-12-13 16:23] VITALS: BP 105/51
[2018-12-13] MEDS: ATORVASTATIN CALCIUM 10 MG TABLET. PO SCH (19:50)
[2018-12-13] MEDS: MELATONIN 3 MG TABLET PO SCH (19:51)
[2018-12-13] MEDS: NYSTATIN TOPICAL POWDER 15GM BOTTLE. TP PRN (21:32)
[2018-12-13] MEDS: DICLOFENAC SODIUM 1% TOPICAL GEL 100GM TUBE. TP PRN (21:40)
--- NOTE | 2018-12-13 22:29 | PDOC ---
Exam Note: [facility] Note: Please also refer to the separate dictated note~for this date of service dictated separately.~Patient seen individually. Discussed the patient with Nursing staff reviewed the chart.~Reviewed interim history and current functioning. Reviewed vital signs,~Labs/ Radiology~and current medications noted below. Continue current treatment with the changes noted in the dictated addendum note Assessment: Vital Signs/I&O: Vital Signs Date Time Temp Pulse Resp B/P (MAP) Pulse Ox O2 Delivery O2 Flow Rate FiO2 12/13/18 19:51 68 105/51 12/13/18 16:23 98.7 20 91 12/12/18 20:45 Room Air I & O 12/12/18 12/12/18 12/13/18 14:59 22:59 06:59 Intake Total 1200 ml 660 ml Balance 1200 ml 660 ml Current Medications: Meds: Current Medications Medications (Trade) Dose Ordered Sig/Maurizio Route PRN Reason Start Time Stop Time Status Last Admin Dose Admin Nystatin (Nystop) 1 bernice PRN BID PRN TP rash 12/13/18 20:00 12/13/18 21:32 I have reviewed the current psychotropics carefully including drug interactions. Risk benefit ratio favors no change other than as noted in my dictated progress note. Diagnosis: Problems: (1) Dementia (2) Impulse control disorder (3) Anxiety disorder (4) Major depressive disorder, recurrent episode (5) Psychotic disorder (6) Mild cognitive impairment (7) Degenerative arthritis (8) Morbid obesity (9) Bipolar 1 disorder, mixed ELKIN MALDONADO MD Dec 13, 2018 22:29
--- NOTE | 2018-12-13 23:46 | PN ---
DATE: 12/12/2018 PSYCHIATRIC PROGRESS NOTE This late entry, 12/12, covers elements not covered in my initial note. SUBJECTIVE: I met with the patient evening of 12/12. The patient slept 7-3/4 hours previous night. He has been fairly cooperative on the unit. Does complain of low back pain, received Lortab for this. REVIEW OF SYSTEMS: No CV, , pulmonary, eye, ENT system symptoms on review. MENTAL STATUS EXAM: The patient is reasonably oriented. Speech is coherent, abstraction fair, computation somewhat impaired, language function intact, attention span short. Mood and affect is improved. LABORATORY DATA: Reviewed. Valproic acid level therapeutic at 58. IMPRESSION: Major depressive disorder with psychotic features; impulse control disorder; anxiety disorder, unspecified. Rest unchanged from before. PLAN: Continue psychotropics from initial note; BuSpar, Zoloft, Depakote and melatonin; adjust further as clinically indicated. ELKIN MALDONADO MD DR: JOSEPHINE/jersey JOB#: [id number] / [id number]
[2018-12-14] MEDS: LEVOTHYROXINE 75 MCG TABLET PO SCH (05:32)
[2018-12-14 05:57] VITALS: BP 142/52
[2018-12-14] MEDS: HYDROcodone/APAP 7.5/325MG 1 TAB TABLET PO PRN ×2 (07:45→21:28)
[2018-12-14 07:48] LABS: BASO % 1 % (0-3); EOS # 0.3 x10^3/uL (0.0-0.7); EOS % 6 % (0-3); HEMATOCRIT 40.6 % (39.0-53.0); HEMOGLOBIN 13.3 g/dL (13.0-17.5); LYMPH # 1.5 x10^3/uL (1.0-4.8); LYMPH % 32 % (24-48); MEAN CORPUSCULAR HEMOGLOBIN 32 pg (25-35); MEAN CORPUSCULAR HGB CONC 33 g/dL (31-37); MEAN CORPUSCULAR VOLUME 97 fL (79-100); MONO # 0.6 x10^3/uL (0.0-1.1); MONO % 12 % (0-9); NEUT # 2.4 x10^3uL (1.8-7.7); NEUT % 50 % (31-73); PLATELET COUNT 199 x10^3/uL (140-400); RED BLOOD COUNT 4.17 x10^6/uL (4.30-5.70); RED CELL DISTRIBUTION WIDTH 14.8 % (11.5-14.5); WHITE BLOOD COUNT 4.8 x10^3/uL (4.0-11.0)
[2018-12-14 08:02] LABS: ALBUMIN 3.1 g/dL (3.4-5.0); ALBUMIN/GLOBULIN RATIO 0.9 (1.0-1.7); CALCIUM 8.5 mg/dL (8.5-10.1); CREATININE 1.4 mg/dL (0.7-1.3); GFR 49.8; POTASSIUM 4.7 mmol/L (3.5-5.1); TOTAL BILIRUBIN 0.6 mg/dL (0.2-1.0); TOTAL PROTEIN 6.7 g/dL (6.4-8.2)
[2018-12-14] MEDS: FLUTICASONE 50MCG/NASAL SPRAY 16GM BOTTLE. NS SCH (09:00)
[2018-12-14] MEDS: ALLOPURINOL 100 MG TABLET. PO SCH ×2 (09:17→20:17)
[2018-12-14] MEDS: CHOLECALCIFEROL (VITAMIN D3) 1,000 UNIT TABLET PO SCH (09:17)
[2018-12-14] MEDS: FUROSEMIDE 80 MG TABLET PO SCH (09:17)
[2018-12-14] MEDS: ASPIRIN 325 MG TABLET PO SCH (09:17)
[2018-12-14] MEDS: FAMOTIDINE 20 MG TABLET PO SCH ×2 (09:17→20:17)
[2018-12-14] MEDS: LISINOPRIL 20 MG TABLET PO SCH (09:18)
[2018-12-14] MEDS: TAMSULOSIN 0.4 MG CAP.ER.24H. PO SCH (09:18)
[2018-12-14] MEDS: SERTRALINE 50 MG TABLET. PO SCH (09:18)
[2018-12-14] MEDS: CARVEDILOL 12.5 MG TABLET PO SCH ×2 (09:18→20:17)
[2018-12-14] MEDS: FINASTERIDE 5 MG TABLET PO SCH (09:18)
[2018-12-14] MEDS: POTASSIUM CHLORIDE 20 MEQ TABLET.ER. PO SCH (09:18)
[2018-12-14] MEDS: FERROUS SULFATE 325 MG TABLET. PO SCH (09:18)
[2018-12-14] MEDS: DIVALPROEX SODIUM 250 MG TABLET.DR. PO SCH ×3 (09:19→20:17)
[2018-12-14 17:12] VITALS: BP 130/63
[2018-12-14] MEDS ORDERED: traZODone 50 MG TABLET. PO PRN (19:15)
[2018-12-14] MEDS: ATORVASTATIN CALCIUM 10 MG TABLET. PO SCH (20:17)
[2018-12-14] MEDS: MELATONIN 3 MG TABLET PO SCH (20:18)
--- NOTE | 2018-12-14 22:34 | PDOC ---
Exam Note: [facility] Note: Please also refer to the separate dictated note~for this date of service dictated separately.~Patient seen individually. Discussed the patient with Nursing staff reviewed the chart.~Reviewed interim history and current functioning. Reviewed vital signs,~Labs/ Radiology~and current medications noted below. Continue current treatment with the changes noted in the dictated addendum note Assessment: Vital Signs/I&O: Vital Signs Date Time Temp Pulse Resp B/P (MAP) Pulse Ox O2 Delivery O2 Flow Rate FiO2 12/14/18 21:28 18 Room Air 12/14/18 20:17 64 130/63 12/14/18 17:12 97.6 94 I & O 12/13/18 12/13/18 12/14/18 14:59 22:59 06:59 Intake Total 840 ml 480 ml 120 ml Balance 840 ml 480 ml 120 ml Labs: Laboratory Tests Test 12/14/18 07:04 White Blood Count 4.8 x10^3/uL (4.0-11.0) Red Blood Count 4.17 x10^6/uL (4.30-5.70) L Hemoglobin 13.3 g/dL (13.0-17.5) Hematocrit 40.6 % (39.0-53.0) Mean Corpuscular Volume 97 fL (79-100) Mean Corpuscular Hemoglobin 32 pg (25-35) Mean Corpuscular Hemoglobin Concent 33 g/dL (31-37) Red Cell Distribution Width 14.8 % (11.5-14.5) H Platelet Count 199 x10^3/uL (140-400) Neutrophils (%) (Auto) 50 % (31-73) Lymphocytes (%) (Auto) 32 % (24-48) Monocytes (%) (Auto) 12 % (0-9) H Eosinophils (%) (Auto) 6 % (0-3) H Basophils (%) (Auto) 1 % (0-3) Neutrophils # (Auto) 2.4 x10^3uL (1.8-7.7) Lymphocytes # (Auto) 1.5 x10^3/uL (1.0-4.8) Monocytes # (Auto) 0.6 x10^3/uL (0.0-1.1) Eosinophils # (Auto) 0.3 x10^3/uL (0.0-0.7) Basophils # (Auto) 0.0 x10^3/uL (0.0-0.2) Sodium Level 142 mmol/L (136-145) Potassium Level 4.7 mmol/L (3.5-5.1) Chloride Level 103 mmol/L (98-107) Carbon Dioxide Level 34 mmol/L (21-32) H Anion Gap 5 (6-14) L Blood Urea Nitrogen 28 mg/dL (8-26) H Creatinine 1.4 mg/dL (0.7-1.3) H Estimated GFR (Cockcroft-Gault) 49.8 BUN/Creatinine Ratio 20 (6-20) Glucose Level 86 mg/dL (70-99) Calcium Level 8.5 mg/dL (8.5-10.1) Total Bilirubin 0.6 mg/dL (0.2-1.0) Aspartate Amino Transferase (AST) 45 U/L (15-37) H Alanine Aminotransferase (ALT) 33 U/L (16-63) Alkaline Phosphatase 103 U/L (46-116) Total Protein 6.7 g/dL (6.4-8.2) Albumin 3.1 g/dL (3.4-5.0) L Albumin/Globulin Ratio 0.9 (1.0-1.7) L Current Medications: I have reviewed the current psychotropics carefully including drug interactions. Risk benefit ratio favors no change other than as noted in my dictated progress note. Diagnosis: Problems: (1) Dementia (2) Impulse control disorder (3) Anxiety disorder (4) Major depressive disorder, recurrent episode (5) Psychotic disorder (6) Mild cognitive impairment (7) Degenerative arthritis (8) Morbid obesity (9) Bipolar 1 disorder, mixed ELKIN MALDONADO MD Dec 14, 2018 22:34
--- NOTE | 2018-12-15 00:58 | PN ---
DATE: 12/13/2018 PSYCHIATRIC PROGRESS NOTE This late entry 12/13/2018 covers elements not covered in my initial note. SUBJECTIVE: I met with the patient evening of 12/13/2018. The patient slept 7 hours previous night and then had naps during the day. He did well at night, fixated on knee pain, wanting pain medications for this. REVIEW OF SYSTEMS: No CV, , pulmonary, eye system symptoms on review. He was working on coloring in the activity therapy very carefully within the lines, somewhat obsessive. MENTAL STATUS EXAM: Reasonably oriented. Speech is coherent, abstraction fair, computation somewhat impaired, language function intact, attention span short. Mood and affect is improved. LABORATORY DATA: Reviewed. IMPRESSION: Unchanged from initial note. PLAN: No change from initial note. Check CBC, CMP morning of 12/14/2018. Rest unchanged. MAN Rodolfo MALDONADO MD DR: JOSEPHINE/jersey JOB#: [id number] / [id number]
[2018-12-15] MEDS: LEVOTHYROXINE 75 MCG TABLET PO SCH (05:37)
[2018-12-15] MEDS: HYDROcodone/APAP 7.5/325MG 1 TAB TABLET PO PRN ×2 (06:20→15:52)
[2018-12-15 06:44] VITALS: BP 168/84
[2018-12-15] MEDS: FAMOTIDINE 20 MG TABLET PO SCH ×2 (08:25→19:46)
[2018-12-15] MEDS: FINASTERIDE 5 MG TABLET PO SCH (08:25)
[2018-12-15] MEDS: SERTRALINE 50 MG TABLET. PO SCH (08:25)
[2018-12-15] MEDS: POTASSIUM CHLORIDE 20 MEQ TABLET.ER. PO SCH (08:25)
[2018-12-15] MEDS: FERROUS SULFATE 325 MG TABLET. PO SCH (08:25)
[2018-12-15] MEDS: CHOLECALCIFEROL (VITAMIN D3) 1,000 UNIT TABLET PO SCH (08:26)
[2018-12-15] MEDS: ASPIRIN 325 MG TABLET PO SCH (08:26)
[2018-12-15] MEDS: ALLOPURINOL 100 MG TABLET. PO SCH ×2 (08:26→19:46)
[2018-12-15] MEDS: DIVALPROEX SODIUM 250 MG TABLET.DR. PO SCH ×3 (08:27→19:45)
[2018-12-15] MEDS: FUROSEMIDE 80 MG TABLET PO SCH (08:28)
[2018-12-15] MEDS: LISINOPRIL 20 MG TABLET PO SCH (08:28)
[2018-12-15] MEDS: TAMSULOSIN 0.4 MG CAP.ER.24H. PO SCH (08:28)
[2018-12-15] MEDS: CARVEDILOL 12.5 MG TABLET PO SCH ×2 (08:28→19:45)
[2018-12-15] MEDS: FLUTICASONE 50MCG/NASAL SPRAY 16GM BOTTLE. NS SCH (08:29)
[2018-12-15 16:58] VITALS: BP 144/72
[2018-12-15] MEDS: MELATONIN 3 MG TABLET PO SCH (19:44)
[2018-12-15] MEDS: ATORVASTATIN CALCIUM 10 MG TABLET. PO SCH (19:46)
--- NOTE | 2018-12-15 22:48 | PDOC ---
Exam Note: [facility] Note: Please also refer to the separate dictated note~for this date of service dictated separately.~Patient seen individually. Discussed the patient with Nursing staff reviewed the chart.~Reviewed interim history and current functioning. Reviewed vital signs,~Labs/ Radiology~and current medications noted below. Continue current treatment with the changes noted in the dictated addendum note Assessment: Vital Signs/I&O: Vital Signs Date Time Temp Pulse Resp B/P (MAP) Pulse Ox O2 Delivery O2 Flow Rate FiO2 12/15/18 19:45 60 144/72 12/15/18 16:58 98.0 20 95 Room Air I & O 12/14/18 12/14/18 12/15/18 14:59 22:59 06:59 Intake Total 720 ml 240 ml 120 ml Balance 720 ml 240 ml 120 ml Current Medications: I have reviewed the current psychotropics carefully including drug interactions. Risk benefit ratio favors no change other than as noted in my dictated progress note. Diagnosis: Problems: (1) Dementia (2) Impulse control disorder (3) Anxiety disorder (4) Major depressive disorder, recurrent episode (5) Psychotic disorder (6) Mild cognitive impairment (7) Degenerative arthritis (8) Morbid obesity (9) Bipolar 1 disorder, mixed ELKIN MALDONADO MD Dec 15, 2018 22:48
[2018-12-16] MEDS: LEVOTHYROXINE 75 MCG TABLET PO SCH (05:34)
[2018-12-16] MEDS: HYDROcodone/APAP 7.5/325MG 1 TAB TABLET PO PRN ×3 (05:35→20:28)
[2018-12-16 06:41] VITALS: BP 164/74
[2018-12-16] MEDS: DIVALPROEX SODIUM 250 MG TABLET.DR. PO SCH ×3 (08:44→20:27)
[2018-12-16] MEDS: ALLOPURINOL 100 MG TABLET. PO SCH ×2 (08:44→20:27)
[2018-12-16] MEDS: ASPIRIN 325 MG TABLET PO SCH (08:44)
[2018-12-16] MEDS: TAMSULOSIN 0.4 MG CAP.ER.24H. PO SCH (08:44)
[2018-12-16] MEDS: FINASTERIDE 5 MG TABLET PO SCH (08:44)
[2018-12-16] MEDS: FUROSEMIDE 80 MG TABLET PO SCH (08:45)
[2018-12-16] MEDS: CHOLECALCIFEROL (VITAMIN D3) 1,000 UNIT TABLET PO SCH (08:45)
[2018-12-16] MEDS: FERROUS SULFATE 325 MG TABLET. PO SCH (08:45)
[2018-12-16] MEDS: CARVEDILOL 12.5 MG TABLET PO SCH ×2 (08:45→20:27)
[2018-12-16] MEDS: FAMOTIDINE 20 MG TABLET PO SCH ×2 (08:45→20:27)
[2018-12-16] MEDS: LISINOPRIL 20 MG TABLET PO SCH (08:45)
[2018-12-16] MEDS: SERTRALINE 50 MG TABLET. PO SCH (08:45)
[2018-12-16] MEDS: POTASSIUM CHLORIDE 20 MEQ TABLET.ER. PO SCH (08:45)
[2018-12-16] MEDS: FLUTICASONE 50MCG/NASAL SPRAY 16GM BOTTLE. NS SCH (08:47)
--- NOTE | 2018-12-16 13:40 | PN ---
DATE: 12/14/2018 This late entry 12/14/2018 covers elements not covered in my initial note. SUBJECTIVE: I met with the patient evening of 12/14/2018. The patient slept 6-3/4 hours previous night. Previous night, he was agitated, wanting pain medications, somewhat abrasive with Rico, the nursing staff. Later, he was agitated regarding Garden peppers. I processed this with him at some length. Insight somewhat limited. REVIEW OF SYSTEMS: No CV, , pulmonary, eye, ENT system symptoms on review. MENTAL STATUS EXAM: The patient is reasonably oriented. Speech is coherent, abstraction fair, computation impaired, language function intact, attention span short. Mood and affect despite the above is showing improvement. LABORATORY DATA: Reviewed. IMPRESSION: Unchanged from initial note. PLAN: No change from initial note. MAN Rodolfo MALDONADO MD DR: JOSEPHINE/jersey JOB#: [id number] / [id number]
[2018-12-16] MEDS: DICLOFENAC SODIUM 1% TOPICAL GEL 100GM TUBE. TP PRN (14:50)
[2018-12-16 16:05] VITALS: BP 118/70
[2018-12-16] MEDS: MELATONIN 3 MG TABLET PO SCH (20:26)
[2018-12-16] MEDS: ATORVASTATIN CALCIUM 10 MG TABLET. PO SCH (20:27)
--- NOTE | 2018-12-16 22:10 | PN ---
DATE: 12/15/2018 PSYCHIATRIC PROGRESS NOTE This is a late entry 12/15/2018 covers elements not covered in my initial note. SUBJECTIVE: I met with the patient in the evening, staffed at a treatment team meeting with the entire team in the morning. Sleeping average 7 hours. Appetite 75-100%. At times, he is borderline inappropriate, but redirects. 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 REVIEW OF SYSTEMS: No CV, , pulmonary, eye system symptoms on review. MENTAL STATUS EXAM: Oriented reasonably. Speech is coherent, abstraction fair, computation somewhat impaired, language function intact, attention span fair. Mood and affect is improved. LABORATORY DATA: Reviewed. IMPRESSION: Unchanged from initial note. PLAN: No change from initial note. MAN Rodolfo MALDONADO MD DR: JOSEPHINE/jersey JOB#: [id number] / [id number]
--- NOTE | 2018-12-16 22:29 | PDOC ---
Exam Note: [facility] Note: Please also refer to the separate dictated note~for this date of service dictated separately.~Patient seen individually. Discussed the patient with Nursing staff reviewed the chart.~Reviewed interim history and current functioning. Reviewed vital signs,~Labs/ Radiology~and current medications noted below. Continue current treatment with the changes noted in the dictated addendum note Assessment: Vital Signs/I&O: Vital Signs Date Time Temp Pulse Resp B/P (MAP) Pulse Ox O2 Delivery O2 Flow Rate FiO2 12/16/18 20:28 20 93 Room Air 12/16/18 20:27 70 118/70 12/16/18 16:05 98.2 I & O 12/15/18 12/15/18 12/16/18 15:00 23:00 07:00 Intake Total 1200 ml 240 ml 240 ml Balance 1200 ml 240 ml 240 ml Current Medications: I have reviewed the current psychotropics carefully including drug interactions. Risk benefit ratio favors no change other than as noted in my dictated progress note. Diagnosis: Problems: (1) Dementia (2) Impulse control disorder (3) Anxiety disorder (4) Major depressive disorder, recurrent episode (5) Psychotic disorder (6) Mild cognitive impairment (7) Degenerative arthritis (8) Morbid obesity (9) Bipolar 1 disorder, mixed ELKIN MALDONADO MD Dec 16, 2018 22:29
[2018-12-17] MEDS: LEVOTHYROXINE 75 MCG TABLET PO SCH (05:33)
[2018-12-17 05:42] VITALS: BP 150/74
[2018-12-17] MEDS: DIVALPROEX SODIUM 250 MG TABLET.DR. PO SCH ×3 (08:50→20:10)
[2018-12-17] MEDS: FINASTERIDE 5 MG TABLET PO SCH (08:50)
[2018-12-17] MEDS: TAMSULOSIN 0.4 MG CAP.ER.24H. PO SCH (08:50)
[2018-12-17] MEDS: SERTRALINE 50 MG TABLET. PO SCH (08:50)
[2018-12-17] MEDS: CARVEDILOL 12.5 MG TABLET PO SCH ×2 (08:50→20:11)
[2018-12-17] MEDS: POTASSIUM CHLORIDE 20 MEQ TABLET.ER. PO SCH (08:51)
[2018-12-17] MEDS: LISINOPRIL 20 MG TABLET PO SCH (08:52)
[2018-12-17] MEDS: FUROSEMIDE 80 MG TABLET PO SCH (08:52)
[2018-12-17] MEDS: ASPIRIN 325 MG TABLET PO SCH (08:52)
[2018-12-17] MEDS: FERROUS SULFATE 325 MG TABLET. PO SCH (08:52)
[2018-12-17] MEDS: CHOLECALCIFEROL (VITAMIN D3) 1,000 UNIT TABLET PO SCH (08:52)
[2018-12-17] MEDS: HYDROcodone/APAP 7.5/325MG 1 TAB TABLET PO PRN ×3 (08:53→21:41)
[2018-12-17] MEDS: ALLOPURINOL 100 MG TABLET. PO SCH ×2 (08:53→20:10)
[2018-12-17] MEDS: FAMOTIDINE 20 MG TABLET PO SCH ×2 (08:53→20:10)
[2018-12-17] MEDS: DICLOFENAC SODIUM 1% TOPICAL GEL 100GM TUBE. TP PRN (08:57)
[2018-12-17] MEDS: FLUTICASONE 50MCG/NASAL SPRAY 16GM BOTTLE. NS SCH (08:57)
[2018-12-17 15:40] VITALS: BP 130/67
[2018-12-17] MEDS: ATORVASTATIN CALCIUM 10 MG TABLET. PO SCH (20:10)
[2018-12-17] MEDS: MELATONIN 3 MG TABLET PO SCH (20:11)
--- NOTE | 2018-12-17 23:17 | PDOC ---
Exam Note: [facility] Note: Please also refer to the separate dictated note~for this date of service dictated separately.~Patient seen individually. Discussed the patient with Nursing staff reviewed the chart.~Reviewed interim history and current functioning. Reviewed vital signs,~Labs/ Radiology~and current medications noted below. Continue current treatment with the changes noted in the dictated addendum note Assessment: Vital Signs/I&O: Vital Signs Date Time Temp Pulse Resp B/P (MAP) Pulse Ox O2 Delivery O2 Flow Rate FiO2 12/17/18 22:41 18 95 Room Air 12/17/18 20:11 64 126/68 12/17/18 15:40 97.4 I & O 12/16/18 12/16/18 12/17/18 15:00 23:00 07:00 Intake Total 600 ml 240 ml 240 ml Balance 600 ml 240 ml 240 ml Current Medications: I have reviewed the current psychotropics carefully including drug interactions. Risk benefit ratio favors no change other than as noted in my dictated progress note. Diagnosis: Problems: (1) Dementia (2) Impulse control disorder (3) Anxiety disorder (4) Major depressive disorder, recurrent episode (5) Psychotic disorder (6) Mild cognitive impairment (7) Degenerative arthritis (8) Morbid obesity (9) Bipolar 1 disorder, mixed ELKIN MALDONADO MD Dec 17, 2018 23:17
[2018-12-18] MEDS: LEVOTHYROXINE 75 MCG TABLET PO SCH (06:05)
[2018-12-18] MEDS: HYDROcodone/APAP 7.5/325MG 1 TAB TABLET PO PRN ×3 (06:06→20:08)
[2018-12-18 06:35] VITALS: BP 147/73
[2018-12-18] MEDS: CHOLECALCIFEROL (VITAMIN D3) 1,000 UNIT TABLET PO SCH (07:59)
[2018-12-18] MEDS: ALLOPURINOL 100 MG TABLET. PO SCH ×2 (07:59→20:09)
[2018-12-18] MEDS: FUROSEMIDE 80 MG TABLET PO SCH (07:59)
[2018-12-18] MEDS: ASPIRIN 325 MG TABLET PO SCH (08:00)
[2018-12-18] MEDS: FAMOTIDINE 20 MG TABLET PO SCH ×2 (08:00→20:08)
[2018-12-18] MEDS: CARVEDILOL 12.5 MG TABLET PO SCH ×2 (08:00→20:08)
[2018-12-18] MEDS: SERTRALINE 50 MG TABLET. PO SCH (08:00)
[2018-12-18] MEDS: TAMSULOSIN 0.4 MG CAP.ER.24H. PO SCH (08:01)
[2018-12-18] MEDS: LISINOPRIL 20 MG TABLET PO SCH (08:01)
[2018-12-18] MEDS: POTASSIUM CHLORIDE 20 MEQ TABLET.ER. PO SCH (08:01)
[2018-12-18] MEDS: DIVALPROEX SODIUM 250 MG TABLET.DR. PO SCH ×3 (08:01→20:08)
[2018-12-18] MEDS: FINASTERIDE 5 MG TABLET PO SCH (08:01)
[2018-12-18] MEDS: FERROUS SULFATE 325 MG TABLET. PO SCH (08:02)
[2018-12-18] MEDS: FLUTICASONE 50MCG/NASAL SPRAY 16GM BOTTLE. NS SCH (08:02)
[2018-12-18] MEDS: DICLOFENAC SODIUM 1% TOPICAL GEL 100GM TUBE. TP PRN (15:39)
[2018-12-18 16:31] VITALS: BP 132/59
[2018-12-18] MEDS: MELATONIN 3 MG TABLET PO SCH (20:07)
[2018-12-18] MEDS: ATORVASTATIN CALCIUM 10 MG TABLET. PO SCH (20:08)
--- NOTE | 2018-12-18 21:59 | PDOC ---
Exam Note: [facility] Note: Please also refer to the separate dictated note~for this date of service dictated separately.~Patient seen individually. Discussed the patient with Nursing staff reviewed the chart.~Reviewed interim history and current functioning. Reviewed vital signs,~Labs/ Radiology~and current medications noted below. Continue current treatment with the changes noted in the dictated addendum note Assessment: Vital Signs/I&O: Vital Signs Date Time Temp Pulse Resp B/P (MAP) Pulse Ox O2 Delivery O2 Flow Rate FiO2 12/18/18 20:08 61 132/59 12/18/18 16:31 97.9 20 96 12/18/18 06:35 Room Air I & O 12/17/18 12/17/18 12/18/18 15:00 23:00 07:00 Intake Total 720 ml 240 ml Balance 720 ml 240 ml Current Medications: I have reviewed the current psychotropics carefully including drug interactions. Risk benefit ratio favors no change other than as noted in my dictated progress note. Diagnosis: Problems: (1) Impulse control disorder (2) Anxiety disorder (3) Major depressive disorder, recurrent episode (4) Psychotic disorder (5) Mild cognitive impairment (6) Degenerative arthritis (7) Morbid obesity (8) Bipolar 1 disorder, mixed ELKIN MALDONADO MD Dec 18, 2018 21:59
--- NOTE | 2018-12-18 23:07 | PN ---
DATE: 12/16/2018 PSYCHIATRIC PROGRESS NOTE This is a late entry 12/16/2018, covers the elements not covered in my initial note. SUBJECTIVE: I met with the patient in the evening. The patient slept 7-1/4 hours previous night. He has been compliant otherwise cooperative, a little anxious at times, other times withdrawn to his room. REVIEW OF SYSTEMS: Impaired ambulation with walker. No CV, , pulmonary, eye, ENT system symptoms on review. MENTAL STATUS EXAM: Reasonably oriented. Speech is coherent, abstraction fair, computation impaired, language function intact, attention span short. Mood and affect is improved. LABORATORY DATA: Reviewed. IMPRESSION: Unchanged from initial note. PLAN: No change from initial note. ELKIN MALDONADO MD DR: JOSEPHINE/jersey JOB#: [id number] / [id number]
--- NOTE | 2018-12-18 23:09 | PN ---
DATE: 12/17/2018 This late entry of 12/17/2018 covers the elements not covered in my initial note. SUBJECTIVE: I met with the patient in the evening. The patient slept 7-1/4 hours previous night. He has been a little more cooperative, but anxious. Does complain of pain, being addressed by Dr. Britt. REVIEW OF SYSTEMS: Ambulation impaired with walker. No CV, , pulmonary, eye system symptoms on review. MENTAL STATUS EXAM: Reasonably oriented. Speech coherent, abstraction fair, computation impaired, language function intact, attention span short. Mood and affect is improved. LABORATORY DATA: Reviewed. IMPRESSION: Unchanged from initial note. PLAN: No change from initial note. ELKIN MALDONADO MD DR: JOSEPHINE/nts JOB#: [id number] / [id number]
[2018-12-19] MEDS: LEVOTHYROXINE 75 MCG TABLET PO SCH (05:24)
[2018-12-19] MEDS: HYDROcodone/APAP 7.5/325MG 1 TAB TABLET PO PRN ×2 (05:51→19:54)
[2018-12-19 06:57] VITALS: BP 156/85
[2018-12-19] MEDS: FUROSEMIDE 80 MG TABLET PO SCH (09:09)
[2018-12-19] MEDS: POTASSIUM CHLORIDE 20 MEQ TABLET.ER. PO SCH (09:10)
[2018-12-19] MEDS: FAMOTIDINE 20 MG TABLET PO SCH ×2 (09:10→19:52)
[2018-12-19] MEDS: CARVEDILOL 12.5 MG TABLET PO SCH ×2 (09:22→19:52)
[2018-12-19] MEDS: FLUTICASONE 50MCG/NASAL SPRAY 16GM BOTTLE. NS SCH (09:23)
[2018-12-19] MEDS: CHOLECALCIFEROL (VITAMIN D3) 1,000 UNIT TABLET PO SCH (09:23)
[2018-12-19] MEDS: SERTRALINE 50 MG TABLET. PO SCH (09:23)
[2018-12-19] MEDS: LISINOPRIL 20 MG TABLET PO SCH (09:23)
[2018-12-19] MEDS: FINASTERIDE 5 MG TABLET PO SCH (09:23)
[2018-12-19] MEDS: TAMSULOSIN 0.4 MG CAP.ER.24H. PO SCH (09:23)
[2018-12-19] MEDS: ASPIRIN 325 MG TABLET PO SCH (09:23)
[2018-12-19] MEDS: FERROUS SULFATE 325 MG TABLET. PO SCH (09:23)
[2018-12-19] MEDS: DIVALPROEX SODIUM 250 MG TABLET.DR. PO SCH ×3 (09:52→19:52)
[2018-12-19] MEDS: ALLOPURINOL 100 MG TABLET. PO SCH ×2 (09:52→19:53)
[2018-12-19] MEDS ORDERED: NYSTATIN TOPICAL POWDER 15GM BOTTLE. TP PRN (14:30)
[2018-12-19 16:33] VITALS: BP 117/61
[2018-12-19] MEDS: ATORVASTATIN CALCIUM 10 MG TABLET. PO SCH (19:52)
[2018-12-19] MEDS: MELATONIN 3 MG TABLET PO SCH (19:52)
[2018-12-19] MEDS: NYSTATIN TOPICAL POWDER 15GM BOTTLE. TP PRN (19:53)
--- NOTE | 2018-12-19 22:41 | PDOC ---
Exam Note: [facility] Note: Please also refer to the separate dictated note~for this date of service dictated separately.~Patient seen individually. Discussed the patient with Nursing staff reviewed the chart.~Reviewed interim history and current functioning. Reviewed vital signs,~Labs/ Radiology~and current medications noted below. Continue current treatment with the changes noted in the dictated addendum note Assessment: Vital Signs/I&O: Vital Signs Date Time Temp Pulse Resp B/P (MAP) Pulse Ox O2 Delivery O2 Flow Rate FiO2 12/19/18 19:54 95 Room Air 12/19/18 19:52 56 117/61 12/19/18 16:33 97.9 18 I & O 12/18/18 12/18/18 12/19/18 14:59 22:59 06:59 Intake Total 480 ml 240 ml 0 ml Balance 480 ml 240 ml 0 ml Current Medications: I have reviewed the current psychotropics carefully including drug interactions. Risk benefit ratio favors no change other than as noted in my dictated progress note. Diagnosis: Problems: (1) Impulse control disorder (2) Anxiety disorder (3) Major depressive disorder, recurrent episode (4) Psychotic disorder (5) Mild cognitive impairment (6) Bipolar 1 disorder, mixed ELKIN MALDONADO MD Dec 19, 2018 22:41
[2018-12-20] MEDS: LEVOTHYROXINE 75 MCG TABLET PO SCH (05:39)
[2018-12-20] MEDS: HYDROcodone/APAP 7.5/325MG 1 TAB TABLET PO PRN ×2 (05:46→19:45)
[2018-12-20 06:10] VITALS: BP 137/62
[2018-12-20] MEDS: ASPIRIN 325 MG TABLET PO SCH (08:52)
[2018-12-20] MEDS: FAMOTIDINE 20 MG TABLET PO SCH ×2 (08:52→19:40)
[2018-12-20] MEDS: ALLOPURINOL 100 MG TABLET. PO SCH ×2 (08:52→19:40)
[2018-12-20] MEDS: FINASTERIDE 5 MG TABLET PO SCH (08:52)
[2018-12-20] MEDS: LISINOPRIL 20 MG TABLET PO SCH (08:52)
[2018-12-20] MEDS: POTASSIUM CHLORIDE 20 MEQ TABLET.ER. PO SCH (08:53)
[2018-12-20] MEDS: DIVALPROEX SODIUM 250 MG TABLET.DR. PO SCH ×2 (08:53→19:39)
[2018-12-20] MEDS: TAMSULOSIN 0.4 MG CAP.ER.24H. PO SCH (08:54)
[2018-12-20] MEDS: FERROUS SULFATE 325 MG TABLET. PO SCH (08:54)
[2018-12-20] MEDS: FLUTICASONE 50MCG/NASAL SPRAY 16GM BOTTLE. NS SCH (08:55)
[2018-12-20] MEDS: FUROSEMIDE 80 MG TABLET PO SCH (08:55)
[2018-12-20] MEDS: CHOLECALCIFEROL (VITAMIN D3) 1,000 UNIT TABLET PO SCH (08:55)
[2018-12-20] MEDS: SERTRALINE 50 MG TABLET. PO SCH (08:55)
[2018-12-20] MEDS: CARVEDILOL 12.5 MG TABLET PO SCH ×2 (08:57→19:39)
[2018-12-20 16:32] VITALS: BP 169/74
[2018-12-20] MEDS: MELATONIN 3 MG TABLET PO SCH (19:39)
[2018-12-20] MEDS: ATORVASTATIN CALCIUM 10 MG TABLET. PO SCH (19:40)
--- NOTE | 2018-12-20 22:50 | PDOC ---
Exam Note: [facility] Note: Please also refer to the separate dictated note~for this date of service dictated separately.~Patient seen individually. Discussed the patient with Nursing staff reviewed the chart.~Reviewed interim history and current functioning. Reviewed vital signs,~Labs/ Radiology~and current medications noted below. Continue current treatment with the changes noted in the dictated addendum note Assessment: Vital Signs/I&O: Vital Signs Date Time Temp Pulse Resp B/P (MAP) Pulse Ox O2 Delivery O2 Flow Rate FiO2 12/20/18 20:45 16 92 Room Air 12/20/18 19:39 60 169/74 12/20/18 16:32 96.6 I & O 12/19/18 12/19/18 12/20/18 14:59 22:59 06:59 Intake Total 840 ml 460 ml Balance 840 ml 460 ml Current Medications: Meds: Current Medications Medications (Trade) Dose Ordered Sig/Maurizio Route PRN Reason Start Time Stop Time Status Last Admin Dose Admin Divalproex Sodium (Depakote) 750 mg DAILY PO 12/20/18 09:00 12/20/18 08:53 Divalproex Sodium (Depakote) 500 mg HS PO 12/20/18 21:00 12/20/18 19:39 I have reviewed the current psychotropics carefully including drug interactions. Risk benefit ratio favors no change other than as noted in my dictated progress note. Diagnosis: Problems: (1) Impulse control disorder (2) Anxiety disorder (3) Major depressive disorder, recurrent episode (4) Psychotic disorder (5) Mild cognitive impairment (6) Degenerative arthritis ELKIN MALDONADO MD Dec 20, 2018 22:49
--- NOTE | 2018-12-20 23:00 | PN ---
DATE: 12/18/2018 PSYCHIATRIC PROGRESS NOTE This late entry, 12/18, covers elements not covered in my initial note. SUBJECTIVE: I met with the patient in the evening. The patient slept 6-3/4 hours previous night. He has been fairly cooperative on the unit, does complain of knee pain, is drug seeking per nursing staff. REVIEW OF SYSTEMS: No CV, , pulmonary, eye system symptoms on review. MENTAL STATUS EXAM: Oriented reasonably. Speech coherent, abstraction fair, computation impaired, language function intact. Mood and affect is improved. LABORATORY DATA: Reviewed. IMPRESSION: Unchanged from initial note. PLAN: No change from initial note. MAN Rodolfo MALDONADO MD DR: JOSEPHINE/jersey JOB#: [id number] / [id number]
--- NOTE | 2018-12-20 23:02 | PN ---
DATE: 12/19/2018 PSYCHIATRIC PROGRESS NOTE This is a late entry 12/19/2018, covers the elements not covered in my initial note. SUBJECTIVE: I met with the patient in the evening. The patient slept 9 hours previous night, has been calm and cooperative. REVIEW OF SYSTEMS: No CV, , pulmonary, eye system symptoms on review, does complain of the knee pain as before. MENTAL STATUS EXAM: Reasonably oriented. Speech coherent, abstraction fair, computation impaired, language function intact, attention span fair. Mood and affect is improved. LABORATORY DATA: Reviewed. IMPRESSION: Unchanged from initial note. PLAN: No change from initial note. MAN Rodolfo MALDONADO MD DR: JOSEPHINE/jersey JOB#: [id number] / [id number]
[2018-12-21] MEDS: LEVOTHYROXINE 75 MCG TABLET PO SCH (05:23)
[2018-12-21 06:03] VITALS: BP 154/73
[2018-12-21] MEDS: FAMOTIDINE 20 MG TABLET PO SCH ×2 (08:13→19:48)
[2018-12-21] MEDS: FUROSEMIDE 80 MG TABLET PO SCH (08:13)
[2018-12-21] MEDS: SERTRALINE 50 MG TABLET. PO SCH (08:13)
[2018-12-21] MEDS: POTASSIUM CHLORIDE 20 MEQ TABLET.ER. PO SCH (08:13)
[2018-12-21] MEDS: DIVALPROEX SODIUM 250 MG TABLET.DR. PO SCH ×2 (08:13→19:48)
[2018-12-21] MEDS: TAMSULOSIN 0.4 MG CAP.ER.24H. PO SCH (08:14)
[2018-12-21] MEDS: ALLOPURINOL 100 MG TABLET. PO SCH ×2 (08:14→19:48)
[2018-12-21] MEDS: ASPIRIN 325 MG TABLET PO SCH (08:14)
[2018-12-21] MEDS: FINASTERIDE 5 MG TABLET PO SCH (08:14)
[2018-12-21] MEDS: LISINOPRIL 20 MG TABLET PO SCH (08:14)
[2018-12-21] MEDS: FERROUS SULFATE 325 MG TABLET. PO SCH (08:14)
[2018-12-21] MEDS: FLUTICASONE 50MCG/NASAL SPRAY 16GM BOTTLE. NS SCH (08:15)
[2018-12-21] MEDS: CHOLECALCIFEROL (VITAMIN D3) 1,000 UNIT TABLET PO SCH (08:15)
[2018-12-21] MEDS: CARVEDILOL 12.5 MG TABLET PO SCH ×2 (08:15→19:48)
[2018-12-21] MEDS: HYDROcodone/APAP 7.5/325MG 1 TAB TABLET PO PRN ×3 (08:45→21:56)
[2018-12-21 16:25] VITALS: BP 125/78
[2018-12-21] MEDS: MELATONIN 3 MG TABLET PO SCH (19:47)
[2018-12-21] MEDS: ATORVASTATIN CALCIUM 10 MG TABLET. PO SCH (19:48)
--- NOTE | 2018-12-21 22:24 | PDOC ---
Exam Note: [facility] Note: Please also refer to the separate dictated note~for this date of service dictated separately.~Patient seen individually. Discussed the patient with Nursing staff reviewed the chart.~Reviewed interim history and current functioning. Reviewed vital signs,~Labs/ Radiology~and current medications noted below. Continue current treatment with the changes noted in the dictated addendum note Assessment: Vital Signs/I&O: Vital Signs Date Time Temp Pulse Resp B/P (MAP) Pulse Ox O2 Delivery O2 Flow Rate FiO2 12/21/18 21:56 18 92 12/21/18 19:48 68 125/78 12/21/18 16:25 97.8 12/20/18 20:45 Room Air I & O 12/20/18 12/20/18 12/21/18 15:00 23:00 07:00 Intake Total 240 ml 360 ml Balance 240 ml 360 ml Current Medications: I have reviewed the current psychotropics carefully including drug interactions. Risk benefit ratio favors no change other than as noted in my dictated progress note. Diagnosis: Problems: (1) Impulse control disorder (2) Anxiety disorder (3) Major depressive disorder, recurrent episode (4) Psychotic disorder (5) Mild cognitive impairment (6) Bipolar 1 disorder, mixed ELKIN MALDONADO MD Dec 21, 2018 22:24
[2018-12-22] MEDS ORDERED: DIVA250T PO (00:57)
[2018-12-22] MEDS ORDERED: MAG30ORA2 PO (01:09)
[2018-12-22] MEDS ORDERED: MAGN2400 PO (01:09)
[2018-12-22] MEDS ORDERED: NYST15PO9 TP (01:10)
[2018-12-22] MEDS ORDERED: SERT50TA PO (01:11)
[2018-12-22] MEDS ORDERED: DEXT237L PO (01:12)
[2018-12-22] MEDS ORDERED: TRAZ-120 PO (01:12)
--- NOTE | 2018-12-22 02:53 | PN ---
DATE: 12/20/2018 This late entry of 12/20/2018 covers elements not covered in my initial note. SUBJECTIVE: I met with the patient in the evening of 12/20/2018. The patient slept 6-1/2 hours previous night. I met with him in his room in the evening. Overall, he is doing reasonably well. He gets a little anxious, somewhat labile, but redirects. REVIEW OF SYSTEMS: No CV, , pulmonary, eye system symptoms on review. MENTAL STATUS EXAM: Reasonably oriented. Speech is coherent, abstraction fair, computation impaired, language function intact. Mood and affect is improved. LABORATORY DATA: Reviewed. IMPRESSION: Unchanged from initial note. PLAN: No change from initial note. Social service staff is coordinating transition to [facility] as soon as possible. MAN Rodolfo MALDONADO MD DR: JOSEPHINE/jersey JOB#: [id number] / [id number]
[2018-12-22 05:17] VITALS: BP 126/76
[2018-12-22] MEDS: LEVOTHYROXINE 75 MCG TABLET PO SCH (05:45)
[2018-12-22] MEDS: HYDROcodone/APAP 7.5/325MG 1 TAB TABLET PO PRN (05:45)
[2018-12-22] MEDS ORDERED: METH29OI TP (08:43)
[2018-12-22] MEDS: FAMOTIDINE 20 MG TABLET PO SCH (09:42)
[2018-12-22] MEDS: LISINOPRIL 20 MG TABLET PO SCH (09:42)
[2018-12-22] MEDS: POTASSIUM CHLORIDE 20 MEQ TABLET.ER. PO SCH (09:42)
[2018-12-22] MEDS: DIVALPROEX SODIUM 250 MG TABLET.DR. PO SCH (09:42)
[2018-12-22] MEDS: TAMSULOSIN 0.4 MG CAP.ER.24H. PO SCH (09:42)
[2018-12-22] MEDS: ASPIRIN 325 MG TABLET PO SCH (09:42)
[2018-12-22] MEDS: SERTRALINE 50 MG TABLET. PO SCH (09:42)
[2018-12-22] MEDS: FINASTERIDE 5 MG TABLET PO SCH (09:42)
[2018-12-22] MEDS: FUROSEMIDE 80 MG TABLET PO SCH (09:43)
[2018-12-22] MEDS: CHOLECALCIFEROL (VITAMIN D3) 1,000 UNIT TABLET PO SCH (09:43)
[2018-12-22] MEDS: ALLOPURINOL 100 MG TABLET. PO SCH (09:43)
[2018-12-22] MEDS: FERROUS SULFATE 325 MG TABLET. PO SCH (09:43)
[2018-12-22] MEDS: FLUTICASONE 50MCG/NASAL SPRAY 16GM BOTTLE. NS SCH (09:44)
[2018-12-22 10:04] VITALS: BP 126/76
[2018-12-22] MEDS: CARVEDILOL 12.5 MG TABLET PO SCH (10:04)
--- NOTE | 2018-12-22 22:13 | PDOC ---
Exam Note: [facility] Note: Please also refer to the separate dictated note~for this date of service dictated separately.~Patient seen individually. Discussed the patient with Nursing staff reviewed the chart.~Reviewed interim history and current functioning. Reviewed vital signs,~Labs/ Radiology~and current medications noted below. Continue current treatment with the changes noted in the dictated addendum note Assessment: Vital Signs/I&O: Vital Signs Date Time Temp Pulse Resp B/P (MAP) Pulse Ox O2 Delivery O2 Flow Rate FiO2 12/22/18 10:04 51 126/76 12/22/18 05:45 98 Room Air 12/22/18 05:17 97.9 18 I & O 12/21/18 12/21/18 12/22/18 14:59 22:59 06:59 Intake Total 960 ml 360 ml 240 ml Balance 960 ml 360 ml 240 ml Current Medications: I have reviewed the current psychotropics carefully including drug interactions. Risk benefit ratio favors no change other than as noted in my dictated progress note. Diagnosis: Problems: (1) Impulse control disorder (2) Anxiety disorder (3) Major depressive disorder, recurrent episode (4) Psychotic disorder (5) Mild cognitive impairment (6) Degenerative arthritis (7) Morbid obesity (8) Bipolar 1 disorder, mixed ELKIN MALDONADO MD Dec 22, 2018 22:13
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
--- NOTE | 2018-12-23 09:51 | PN ---
DATE: 12/21/2018 This is a late entry, 12/21, covers elements not covered in my initial note. SUBJECTIVE: The patient was seen individually in evening of 12/21. The patient slept 5 hours previous night. He has been more cooperative, less depressed and less impulsive and less anxious. We discussed his discharge plans for 12/22 at some length. No CV, , pulmonary, eye system symptoms on review. I met with him in his room. MENTAL STATUS EXAM: The patient is reasonably oriented. Speech is coherent, abstraction fair, computation impaired, language function intact, attention span short. Mood and affect is improved. LABORATORY DATA: Reviewed. IMPRESSION: Unchanged from initial note. PLAN: No change from initial note. MAN Rodolfo MALDONADO MD DR: JOSEPHINE/jersey JOB#: [id number] / [id number]
== END 2018-12-22 12:00 | DRG 885 ==
LOC: ER 17:50 → GEROPSY 20:35
PROVIDERS: ADMIT Psychiatry & Neurology Psychiatry; ATTEND Psychiatry & Neurology Psychiatry
DX: F33.41 Major depressive disorder, recurrent, in partial remission (principal); F03.91 Unspecified dementia, unspecified severity, with behavioral disturbance; F63.9 Impulse disorder, unspecified; I11.0 Hypertensive heart disease with heart failure; I50.9 Heart failure, unspecified; E66.01 Morbid (severe) obesity due to excess calories; N40.0 Benign prostatic hyperplasia without lower urinary tract symptoms; Z66 Do not resuscitate; F41.1 Generalized anxiety disorder; E03.9 Hypothyroidism, unspecified; E78.00 Pure hypercholesterolemia, unspecified; E78.5 Hyperlipidemia, unspecified; H91.90 Unspecified hearing loss, unspecified ear; K21.9 Gastro-esophageal reflux disease without esophagitis; M19.90 Unspecified osteoarthritis, unspecified site; Z88.8 Allergy status to other drugs, medicaments and biological substances; Z68.42 Body mass index [BMI] 45.0-49.9, adult; Z76.5 Malingerer [conscious simulation]; Z79.899 Other long term (current) drug therapy
CPT/HCPCS: 36415; 80053; 80061; 80164; 81001; 82306; 83036; 83540; 83550; 83735; 84436; 84443; 84480; 85025; 86592; 93005; J3420; 99285-25